=== PATIENT | female | born 1990 | race Caucasian/White ===

== ENCOUNTER → 2016-09-24 | Outpatient (CLI) | payer BC ==
[2016-09-24 14:39] LABS: BASO % 0.2 % (0.0-1.0); EOS # 0.3 K/mm3 (0.0-0.50); EOS % 2.8 % (0.0-3.0); LARGE UNSTAINED CELL # 0.2 K/mm3 (0.0-0.4); LARGE UNSTAINED CELL % 1.9 % (0.0-4.0); LYMPH # 1.6 K/mm3 (1.5-6.5); LYMPH % 16.3 % (24.0-44.0); MEAN CORPUSCULAR HEMOGLOBIN 31.9 pg (27.0-33.0); MEAN CORPUSCULAR HGB CONC 34.6 g/dl (32.0-36.5); MEAN CORPUSCULAR VOLUME 92.2 fl (80.0-96.0); MONO # 0.5 K/mm3 (0.0-0.8); MONO % 4.5 % (0.0-5.0); NEUTROPHILS # 7.4 K/mm3 (1.8-7.7); NEUTROPHILS % 74.3 % (36.0-66.0); PLATELET COUNT, AUTOMATED 173 k/mm3 (150-450); RED CELL DISTRIBUTION WIDTH 12.4 % (11.5-14.5)
== END ==
LOC: M LAB 12:56
PROVIDERS: ATTEND Obstetrics & Gynecology
DX: Z34.02 Encounter for supervision of normal first pregnancy, second trimester (principal)

== ENCOUNTER → 2017-02-18 | Outpatient (REF) | payer OTHER | LOC: M SFHCLERA 20:40 | PROVIDERS: ATTEND Physician Assistant | DX: R35.0 Frequency of micturition (principal) ==

== ENCOUNTER → 2017-04-30 | Outpatient (CLI) | payer OTHER ==
--- NOTE | 2017-04-30 14:08 | REP ---
Chest two views HISTORY: Acute bronchitis Comparison: None There is minimal peribronchial cuffing. The heart is normal in size. The pulmonary vasculature is normal in appearance. The bony structure is intact. There is partial fusion of to lower thoracic vertebral bodies. IMPRESSION: Findings consistent with asthma or bronchitis. Signed by Mickey Amos MD 04/30/2017 01:59 P
== END ==
LOC: M ADAMS 13:22
PROVIDERS: ATTEND Physician Assistant
DX: J20.9 Acute bronchitis, unspecified (principal)

== ENCOUNTER → 2017-05-18 | Outpatient (REF) | payer OTHER | LOC: M LAB REF 11:42 | PROVIDERS: ATTEND Advanced Practice Midwife | DX: Z12.4 Encounter for screening for malignant neoplasm of cervix (principal) ==

== ENCOUNTER → 2017-10-24 | Outpatient (REF) | payer OTHER | LOC: M LAB REF 13:37 | DX: J02.9 Acute pharyngitis, unspecified (principal) ==

== ENCOUNTER → 2017-12-02 | Outpatient (CLI) | payer OTHER ==
[2017-12-02 15:18] LABS: BASO % 0.2 % (0.0-1.0); EOS # 0.3 10^3/uL (0.0-0.50); EOS % 2.8 % (0.0-3.0); HEMATOCRIT 37.1 % (36.0-47.0); HEMOGLOBIN 13.3 g/dl (12.0-16.0); IMMATURE GRANULOCYTE % 0.5 % (0-3.0); LYMPH # 2.3 10^3/uL (1.5-6.5); LYMPH % 21.9 % (24.0-44.0); MEAN CORPUSCULAR HGB CONC 35.8 g/dl (32.0-36.5); MEAN CORPUSCULAR VOLUME 86.5 fl (80.0-96.0); MONO # 0.8 10^3/uL (0.0-0.8); MONO % 7.6 % (0.0-5.0); NEUTROPHILS # 6.9 10^3/uL (1.8-7.7); PLATELET COUNT, AUTOMATED 240 10^3/uL (150-450); RED BLOOD COUNT 4.29 10^6/uL (4.00-5.40); RED CELL DISTRIBUTION WIDTH 12.2 % (11.5-14.5); WHITE BLOOD COUNT 10.3 10^3/uL (4.0-10.0)
[2017-12-02 15:31] LABS: TOTAL PROTEIN,RANDOM URINE 8.1 MG/DL (0.0-12.0)
[2017-12-02 15:34] LABS: ALT/SGPT 16 U/L (12-78); AST/SGOT 8 U/L (7-37); BILIRUBIN,TOTAL 0.2 MG/DL (0.2-1.0); CREATININE FOR GFR 0.53 MG/DL (0.55-1.30); GLOMERULAR FILTRATION RATE > 60.0 (>60); LDH LACTATE DEHYDROGENASE 137 U/L (84-246); URIC ACID 3.5 MG/DL (2.6-6.0)
[2017-12-02 16:47] LABS: CHLAMYDIA DNA AMPLIFICATION NEGATIVE (NEGATIVE); GC DNA AMPLIFICATION NEGATIVE (NEGATIVE)
[2017-12-04 11:08] LABS: RUBELLA IgG QUALITATIVE IMMUNE (IMMUNE)
[2017-12-04 11:30] LABS: HBsAg Prenatal NEGATIVE (NEGATIVE)
[2017-12-04 11:48] LABS: HIV 1&2 SCREEN CENTAUR NEGATIVE (NEGATIVE)
== END ==
LOC: M LAB 14:36
DX: Z34.81 Encounter for supervision of other normal pregnancy, first trimester (principal); Z3A.11 11 weeks gestation of pregnancy
CPT/HCPCS: 84460

== ENCOUNTER → 2017-12-14 | Outpatient (REF) | payer OTHER | LOC: M LAB REF 13:20 | DX: O09.92 Supervision of high risk pregnancy, unspecified, second trimester (principal) ==

== ENCOUNTER → 2018-01-04 | Outpatient (CLI) | payer OTHER | LOC: M RAD 09:57 | DX: O09.92 Supervision of high risk pregnancy, unspecified, second trimester (principal) | CPT/HCPCS: 76811 ==

== ENCOUNTER → 2018-01-12 | Outpatient (REF) | payer OTHER | LOC: M LAB REF 12:07 | DX: J02.9 Acute pharyngitis, unspecified (principal) ==

== ENCOUNTER → 2018-01-19 | Outpatient (CLI) | payer OTHER | LOC: M RAD 18:18 | DX: O09.92 Supervision of high risk pregnancy, unspecified, second trimester (principal); Z3A.20 20 weeks gestation of pregnancy | CPT/HCPCS: 76816 ==

== ENCOUNTER → 2018-03-05 | Outpatient (CLI) | payer OTHER ==
[2018-03-05 11:59] LABS: HEMATOCRIT 38.5 % (36.0-47.0); HEMOGLOBIN 13.6 g/dl (12.0-15.5); MEAN CORPUSCULAR HEMOGLOBIN 32.4 pg (27.0-33.0); MEAN CORPUSCULAR HGB CONC 35.3 g/dl (32.0-36.5); MEAN CORPUSCULAR VOLUME 91.7 fl (80.0-96.0); PLATELET COUNT, AUTOMATED 173 10^3/uL (150-450); RED CELL DISTRIBUTION WIDTH 13.1 % (11.5-14.5); WHITE BLOOD COUNT 13.4 10^3/uL (4.0-10.0)
[2018-03-05 12:28] LABS: GLUCOSE CHALLENGE TEST 1 HOUR 97 MG/DL (LESS THAN 140)
== END ==
LOC: M LAB 11:32
DX: Z34.82 Encounter for supervision of other normal pregnancy, second trimester (principal)
CPT/HCPCS: 82950

== ENCOUNTER → 2018-04-12 | Outpatient (CLI) | payer OTHER | LOC: M RAD 17:08 | DX: O10.112 Pre-existing hypertensive heart disease complicating pregnancy, second trimester (principal); Z3A.32 32 weeks gestation of pregnancy | CPT/HCPCS: 76816 ==

== ENCOUNTER → 2018-04-30 | Outpatient (REF) | payer OTHER | LOC: M LAB REF 17:09 | DX: Z34.83 Encounter for supervision of other normal pregnancy, third trimester (principal) ==

== ENCOUNTER → 2018-05-05 | Outpatient (CLI) | payer OTHER | LOC: M RAD 17:41 | DX: O10.113 Pre-existing hypertensive heart disease complicating pregnancy, third trimester (principal); Z3A.35 35 weeks gestation of pregnancy | CPT/HCPCS: 76816 ==

== ENCOUNTER → 2018-05-12 | Outpatient (CLI) | payer OTHER | LOC: M RAD 16:17 | DX: O99.413 Diseases of the circulatory system complicating pregnancy, third trimester (principal); Z3A.36 36 weeks gestation of pregnancy | CPT/HCPCS: 76815 ==

== ENCOUNTER 2018-05-25 05:24 | Inpatient (IN) | payer OTHER ==
[2018-05-25] MEDS: LR 1,000 ML IV ×5 (06:30→18:19)
[2018-05-25 06:33] LABS: HEMATOCRIT 41.1 % (36.0-47.0); HEMOGLOBIN 14.5 g/dl (12.0-15.5); MEAN CORPUSCULAR HEMOGLOBIN 32.1 pg (27.0-33.0); MEAN CORPUSCULAR HGB CONC 35.3 g/dl (32.0-36.5); MEAN CORPUSCULAR VOLUME 90.9 fl (80.0-96.0); PLATELET COUNT, AUTOMATED 187 10^3/uL (150-450); RED BLOOD COUNT 4.52 10^6/uL (4.00-5.40); RED CELL DISTRIBUTION WIDTH 12.9 % (11.5-14.5); WHITE BLOOD COUNT 15.1 10^3/uL (4.0-10.0)
[2018-05-25] MEDS ORDERED: OXYTOCIN INJ 10 UNITS/ML VIAL (J2590) As Ordered (07:23)
[2018-05-25] MEDS ORDERED: dexameTHASONE 4 MG/ML 1ML VIAL (J1100) As Ordered (07:23)
[2018-05-25] MEDS ORDERED: ONDANSETRON 4MG/2ML VIAL (J2405) As Ordered (07:23)
[2018-05-25] MEDS: BICITRA 30ML SOLN UDC PO (07:24)
[2018-05-25] MEDS ORDERED: fentaNYL 100 MCG/2 ML INJECTION (J3010) As Ordered (07:25)
[2018-05-25] MEDS ORDERED: MORPHINE PRES-FREE INJ 10 MG/10 ML VIAL (J2274) As Ordered (07:26)
[2018-05-25] MEDS: GENTAMICIN 120 MG in D5W 50 ML IV (07:45)
[2018-05-25] MEDS: CLINDAMYCIN 900 MG in APPROPRIATE DILUENT 1 EA IV (07:56)
[2018-05-25] MEDS ORDERED: ONDANSETRON 4MG/2ML VIAL (J2405) IV ×2 (08:13→09:45)
[2018-05-25] MEDS ORDERED: NALOXONE INJ 0.4 MG/1 ML VIAL (J2310) IV ×2 (08:13)
[2018-05-25] MEDS ORDERED: METOCLOPRAMIDE INJ 10MG/2ML VIAL (J2765) IV (08:13)
[2018-05-25] MEDS ORDERED: ePHEDrine SULFATE 25 MG/5 ML(5MG/ML) SYRINGE As Ordered ×2 (08:26)
[2018-05-25] MEDS ORDERED: PHENYLephrine HCL 500 MCG/5 ML (100MCG/ML) SYRINGE (J2370) As Ordered (08:47)
[2018-05-25] MEDS ORDERED: KETOROLAC 60 MG/2 ML VIAL (J1885) As Ordered (08:54)
[2018-05-25] MEDS ORDERED: MEPERIDINE INJ 25 MG/ML VIAL (J2175) IV (09:45)
[2018-05-25] MEDS ORDERED: LR 1,000 ML IV (09:45)
[2018-05-25] MEDS ORDERED: PROMETHAZINE 25 MG TAB PO (09:45)
[2018-05-25] MEDS ORDERED: NALBUPHINE HCL 10 MG/ML AMP (J2300) IV (09:45)
[2018-05-25] MEDS ORDERED: RHOGAM 300 MCG (1500 IU) INJ (J2790) IM (09:45)
[2018-05-25] MEDS ORDERED: HYDROMORPHONE HCL 0.5 MG/ 0.5 ML SYRINGE (J1170 PER 1) IV (09:45)
[2018-05-25] MEDS ORDERED: MEASLES,MUMPS,RUBELLA VACCINE INJ (MMR-II) (90707) SC (09:45)
[2018-05-25] MEDS ORDERED: fentaNYL 100 MCG/2 ML INJECTION (J3010) IV (09:45)
[2018-05-25] MEDS ORDERED: PERCOCET 5MG/325MG TAB As Ordered (10:04)
[2018-05-25] MEDS ORDERED: OXYTOCIN 30 UNITS IN 0.9% NaCl 500ML IV BAG (J2590) As Ordered (10:05)
[2018-05-25] MEDS: PERCOCET 5MG/325MG TAB PO ×2 (10:08→14:00)
[2018-05-25] MEDS: OXYTOCIN DRIP 30 UNITS in APPROPRIATE DILUENT 1 EA IV (10:08)
[2018-05-25 10:18] LABS: HEMATOCRIT 37.4 % (36.0-47.0); HEMOGLOBIN 13.2 g/dl (12.0-15.5); MEAN CORPUSCULAR HEMOGLOBIN 32.3 pg (27.0-33.0); MEAN CORPUSCULAR HGB CONC 35.3 g/dl (32.0-36.5); MEAN CORPUSCULAR VOLUME 91.4 fl (80.0-96.0); PLATELET COUNT, AUTOMATED 157 10^3/uL (150-450); RED BLOOD COUNT 4.09 10^6/uL (4.00-5.40); RED CELL DISTRIBUTION WIDTH 13.1 % (11.5-14.5); WHITE BLOOD COUNT 14.4 10^3/uL (4.0-10.0)
[2018-05-25 10:49] LABS: CREATININE FOR GFR 0.61 MG/DL (0.55-1.30); GLOMERULAR FILTRATION RATE > 60.0 (>60)
[2018-05-25] MEDS ORDERED: ENOXAPARIN 80 MG/0.8 ML SYRINGE (J1650) SQ (11:00)
[2018-05-25] MEDS: KETOROLAC 30 MG/ML VIAL (J1885) IV ×2 (14:48→20:54)
[2018-05-25] MEDS: NALBUPHINE HCL 10 MG/ML AMP (J2300) IV (15:36)
[2018-05-25] MEDS: ENOXAPARIN 80 MG/0.8 ML SYRINGE (J1650) SQ (15:50)
[2018-05-25] MEDS: DOCUSATE SODIUM 100 MG CAP PO (20:54)
[2018-05-26] MEDS: KETOROLAC 30 MG/ML VIAL (J1885) IV (03:01)
[2018-05-26] MEDS: ENOXAPARIN 80 MG/0.8 ML SYRINGE (J1650) SQ ×2 (04:04→16:30)
[2018-05-26 06:58] LABS: HEMATOCRIT 30.7 % (36.0-47.0); MEAN CORPUSCULAR HEMOGLOBIN 32.6 pg (27.0-33.0); MEAN CORPUSCULAR HGB CONC 35.8 g/dl (32.0-36.5); MEAN CORPUSCULAR VOLUME 91.1 fl (80.0-96.0); PLATELET COUNT, AUTOMATED 166 10^3/uL (150-450); RED BLOOD COUNT 3.37 10^6/uL (4.00-5.40)
[2018-05-26] MEDS: PRENATAL VITAMINS CHEWABLE TABLET PO (08:20)
[2018-05-26] MEDS: DOCUSATE SODIUM 100 MG CAP PO ×2 (08:20→21:07)
[2018-05-26] MEDS: IBUPROFEN 800 MG TAB PO ×2 (11:20→18:56)
[2018-05-26] MEDS: PERCOCET 5MG/325MG TAB PO ×3 (11:21→21:07)
[2018-05-27] MEDS: IBUPROFEN 800 MG TAB PO (03:01)
[2018-05-27] MEDS: ENOXAPARIN 80 MG/0.8 ML SYRINGE (J1650) SQ (04:30)
[2018-05-27] MEDS: DOCUSATE SODIUM 100 MG CAP PO (08:15)
[2018-05-27] MEDS: PRENATAL VITAMINS CHEWABLE TABLET PO (08:15)
[2018-05-27] MEDS: PERCOCET 5MG/325MG TAB PO (08:16)
== END 2018-05-27 10:00 | disposition home or self-care (01) | DRG 540 ==
LOC: M LDI 05:24 → M OBS 10:52
PROVIDERS: Obstetrics & Gynecology
PROC: 10D00Z1 Extraction of Products of Conception, Low, Open Approach (ICD-10-PCS; principal; 2018-05-25 07:30)
PROC: 0UB70ZZ Excision of Bilateral Fallopian Tubes, Open Approach (ICD-10-PCS; 2018-05-25 07:30)
DX: O34.211 Maternal care for low transverse scar from previous cesarean delivery (principal); O10.02 Pre-existing essential hypertension complicating childbirth; Z30.2 Encounter for sterilization; Z3A.38 38 weeks gestation of pregnancy; Z37.0 Single live birth

== ENCOUNTER → 2018-08-20 | Outpatient (REF) | payer OTHER | LOC: M LAB REF 19:01 | DX: J02.9 Acute pharyngitis, unspecified (principal) | CPT/HCPCS: 87081 ==

== ENCOUNTER → 2018-12-01 | Outpatient (CLI) | payer OTHER ==
[~2018-12-01] MED LIST: COLA100C5 PO; HEPA10009 IJ; LOVE1INJ SC; PERCOCET PO; PRENTAB55 PO
--- NOTE | 2018-12-01 17:36 | REP ---
Clinical: Acute bronchitis . Comparison: 04/30/2017 . Technique: PA and lateral. Findings: The mediastinum and cardiac silhouette are normal. The lung german are clear and without acute consolidation, effusion, or pneumothorax. The skeletal structures are intact and normal. Impression: 1. No acute cardiopulmonary process. Electronically Signed by Randall Handley MD 12/01/2018 05:28 P
== END ==
LOC: M ADAMS 11:00
PROVIDERS: ATTEND Physician Assistant Medical
DX: J20.9 Acute bronchitis, unspecified (principal)

== ENCOUNTER → 2018-12-01 | Outpatient (REF) | payer OTHER ==
[2018-12-01 12:41] LABS: BASO # 0.1 10^3/uL (0.0-0.2); BASO % 0.5 % (0.0-1.0); EOS # 0.3 10^3/uL (0.0-0.50); EOS % 3.2 % (0.0-3.0); HEMATOCRIT 42.3 % (36.0-47.0); HEMOGLOBIN 14.7 g/dl (12.0-15.5); LYMPH % 21.4 % (24.0-44.0); MEAN CORPUSCULAR HEMOGLOBIN 31.2 pg (27.0-33.0); MEAN CORPUSCULAR HGB CONC 34.8 g/dl (32.0-36.5); MEAN CORPUSCULAR VOLUME 89.8 fl (80.0-96.0); MONO # 0.7 10^3/uL (0.0-0.8); NEUTROPHILS # 6.3 10^3/uL (1.8-7.7); NEUTROPHILS % 67.6 % (36.0-66.0); PLATELET COUNT, AUTOMATED 296 10^3/uL (150-450); RED BLOOD COUNT 4.71 10^6/uL (4.00-5.40); WHITE BLOOD COUNT 9.4 10^3/uL (4.0-10.0)
== END ==
LOC: M LABDRWAD 12:04 → M LABDRAW1 12:04
PROVIDERS: ATTEND Physician Assistant Medical
DX: J20.9 Acute bronchitis, unspecified (principal)

== ENCOUNTER → 2019-04-21 | Outpatient (REF) | payer OTHER | LOC: M LAB REF 17:52 | PROVIDERS: ATTEND Obstetrics & Gynecology | DX: Z12.4 Encounter for screening for malignant neoplasm of cervix (principal) ==

== ENCOUNTER → 2019-08-08 | Outpatient (REF) | payer OTHER ==
[2019-08-08 17:17] LABS: BASO % 0.4 % (0.0-1.0); EOS # 0.1 10^3/uL (0.0-0.5); EOS % 2.5 % (0.0-3.0); HEMATOCRIT 41.3 % (36.0-47.0); HEMOGLOBIN 13.6 g/dl (12.0-15.5); LYMPH # 1.4 10^3/uL (1.5-5.0); LYMPH % 27.3 % (24.0-44.0); MEAN CORPUSCULAR HEMOGLOBIN 29.6 pg (27.0-33.0); MEAN CORPUSCULAR HGB CONC 32.9 g/dl (32.0-36.5); MEAN CORPUSCULAR VOLUME 89.8 fl (80.0-96.0); MONO # 0.7 10^3/uL (0.0-0.8); MONO % 13.8 % (0.0-5.0); NEUTROPHILS % 55.8 % (36.0-66.0); PLATELET COUNT, AUTOMATED 219 10^3/uL (150-450); WHITE BLOOD COUNT 5.3 10^3/uL (4.0-10.0)
[2019-08-08 18:05] LABS: ALBUMIN 3.9 GM/DL (3.2-5.2); ALT/SGPT 20 U/L (12-78); BILIRUBIN,TOTAL 0.5 MG/DL (0.2-1.0); BLOOD UREA NITROGEN 9 MG/DL (7-18); CALCIUM LEVEL 9.2 MG/DL (8.5-10.1); CARBON DIOXIDE LEVEL 26 MEQ/L (21-32); CHLORIDE LEVEL 104 MEQ/L (98-107); CREATININE FOR GFR 0.75 MG/DL (0.55-1.30); GLOMERULAR FILTRATION RATE > 60.0 (>60); GLUCOSE, FASTING 91 MG/DL (70-100); POTASSIUM SERUM 3.7 MEQ/L (3.5-5.1); SODIUM LEVEL 138 MEQ/L (136-145); TOTAL PROTEIN 7.7 GM/DL (6.4-8.2)
== END ==
LOC: M SFHCADAM 11:50
PROVIDERS: ATTEND Family Medicine
DX: J10.1 Influenza due to other identified influenza virus with other respiratory manifestations (principal)

== ENCOUNTER → 2019-08-09 | Outpatient (REF) | payer OTHER ==
[2019-08-09 20:09] LABS: BASO % 0.3 % (0.0-1.0); EOS # 0.1 10^3/uL (0.0-0.5); EOS % 1.5 % (0.0-3.0); HEMATOCRIT 42.3 % (36.0-47.0); HEMOGLOBIN 14.1 g/dl (12.0-15.5); LYMPH # 1.9 10^3/uL (1.5-5.0); LYMPH % 27.1 % (24.0-44.0); MEAN CORPUSCULAR HEMOGLOBIN 29.6 pg (27.0-33.0); MEAN CORPUSCULAR HGB CONC 33.3 g/dl (32.0-36.5); MEAN CORPUSCULAR VOLUME 88.7 fl (80.0-96.0); MONO # 0.5 10^3/uL (0.0-0.8); NEUTROPHILS # 4.6 10^3/uL (1.5-8.5); NEUTROPHILS % 63.8 % (36.0-66.0); PLATELET COUNT, AUTOMATED 262 10^3/uL (150-450); RED BLOOD COUNT 4.77 10^6/uL (4.00-5.40); WHITE BLOOD COUNT 7.2 10^3/uL (4.0-10.0)
[2019-08-09 20:25] LABS: C REACTIVE PROTEIN QUANTITATIV 1.42 MG/DL (0.00-0.30)
[2019-08-09 20:36] LABS: MONO SCRN NEGATIVE (NEGATIVE)
[2019-08-09 20:56] LABS: ERYTHROCYTE SEDIMENTATION RATE 21 mm/hr (0-20)
== END ==
LOC: M SFHCADAM 15:12
PROVIDERS: ATTEND Physician Assistant Medical
DX: J02.9 Acute pharyngitis, unspecified (principal); K12.0 Recurrent oral aphthae

== ENCOUNTER → 2019-09-13 | Outpatient (CLI) | payer OTHER ==
--- NOTE | 2019-09-13 10:10 | REP ---
Clinical: Trauma. Technique: AP, lateral, bilateral oblique views left wrist . Findings: The carpal bones, surrounding osseous structures, soft tissues, and joint spaces are normal. There is no evidence for acute fracture or dislocation. No subcutaneous emphysema or radiodense foreign body. Impression: Normal wrist series. No acute fracture or dislocation Electronically Signed by Randall Handley MD 09/13/2019 10:02 A
== END ==
LOC: M ADAMS 09:35
PROVIDERS: ATTEND Physician Assistant Medical
DX: M25.532 Pain in left wrist (principal)

== ENCOUNTER → 2019-10-04 | Outpatient (CLI) | payer OTHER ==
--- NOTE | 2019-10-05 04:09 | REP ---
Clinical: Pain. Technique: AP, lateral, bilateral oblique views of the left third digit. Findings: No obvious acute fracture or dislocation. Joint spaces are intact and relatively normal. Surrounding soft tissues are unremarkable. Impression: No obvious acute fracture. Electronically Signed by Randall Handley MD 10/05/2019 04:01 A
== END ==
LOC: M ADAMS 11:22
PROVIDERS: ATTEND Nurse Practitioner Family
DX: M79.675 Pain in left toe(s) (principal)

== ENCOUNTER 2019-10-14 19:41 | Emergency (ER) | payer OTHER ==
[~2019-10-14] VITALS: Ht 162.6 cm; Wt 81.1 kg
[2019-10-14] MEDS ORDERED: ALLE180T33 PO (20:00)
[2019-10-14] MEDS ORDERED: CLOP75TA2 PO (20:00)
[2019-10-14] MEDS ORDERED: PRED10TA2 PO (20:00)
[2019-10-14] MEDS ORDERED: CLIN300C5 PO (20:00)
[2019-10-14] MEDS ORDERED: ALLE24TA7 PO (20:00)
[2019-10-14] MEDS ORDERED: MONT10TA2 PO (20:00)
[2019-10-14 20:04] LABS: BASO % 0.3 % (0.0-1.0); EOS # 0.4 10^3/uL (0.0-0.5); EOS % 3.7 % (0.0-3.0); HEMATOCRIT 43.5 % (36.0-47.0); HEMOGLOBIN 14.8 g/dl (12.0-15.5); LYMPH # 1.8 10^3/uL (1.5-5.0); MEAN CORPUSCULAR HEMOGLOBIN 29.6 pg (27.0-33.0); MONO # 0.9 10^3/uL (0.0-0.8); MONO % 7.7 % (0.0-5.0); NEUTROPHILS # 8.6 10^3/uL (1.5-8.5); NEUTROPHILS % 72.6 % (36.0-66.0); PLATELET COUNT, AUTOMATED 362 10^3/uL (150-450); WHITE BLOOD COUNT 11.8 10^3/uL (4.0-10.0)
--- NOTE | 2019-10-14 20:09 | REPVR ---
PROCEDURE INFORMATION: Exam: CT Head Without Contrast Exam date and time: 10/14/2019 7:48 PM Age: 29 years old Clinical indication: Visual disturbance; Prior surgery; Surgery date: 6+ months; Surgery type: Coil; Additional info: Visual changes, history of CVA TECHNIQUE: Imaging protocol: Computed tomography of the head without contrast. Radiation optimization: All CT scans at this facility use at least one of these dose optimization techniques: automated exposure control; mA and/or kV adjustment per patient size (includes targeted exams where dose is matched to clinical indication); or iterative reconstruction. COMPARISON: No relevant prior studies available. FINDINGS: Limitations: This examination is slightly suboptimal secondary to artifact from metallic coil adjacent to the suprasellar cistern on the right. Brain: Right suprasellar cistern region metallic coils. Otherwise unremarkable. No hemorrhage. No significant white matter disease. No edema. Ventricles: Unremarkable. No ventriculomegaly. Bones/joints: Unremarkable. No acute fracture. Sinuses: Mild mucosal thickening of the ethmoid sinuses. No paranasal sinus air-fluid level. Mastoid air cells: Visualized mastoid air cells are well aerated. Soft tissues: Unremarkable. Other findings: No CT scan evidence of acute stroke is identified. IMPRESSION: 1. Slightly suboptimal examination secondary to metal artifact. 2. No acute intracranial abnormality. Note should be made that early acute cerebrovascular accident may not be visible on initial unenhanced head CT. Consider MRI examination as clinically indicated. Electronically signed by: Trent Kessler On 10/14/2019 20:09:06 PM
[2019-10-14 20:14] LABS: PROTHROMBIN TIME 12.9 SECONDS (11.8-14.0)
[2019-10-14 20:15] LABS: PARTIAL THROMBOPLASTIN TIME 31.4 SECONDS (25.0-38.4)
[2019-10-14] MEDS ORDERED: ISOVUE-370 76% 100ML VIAL (Q9967) As Ordered ONE (20:32)
[2019-10-14 20:36] LABS: CK-MB VALUE MASS < 1.0 NG/ML (<3.6); CPK CREATINE PHOSPHOKINASE 66 U/L (26-192); MB/CK RELATIVE INDEX 1.52 (< OR =4); TROPONIN I < 0.02 NG/ML (< 0.10)
--- NOTE | 2019-10-14 20:39 | ECGEPIP ---
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
--- NOTE | 2019-10-14 21:41 | REPVR ---
PROCEDURE INFORMATION: Exam: CT Angiography Head With Contrast Exam date and time: 10/14/2019 8:54 PM Age: 29 years old Clinical indication: Visual disturbance; Additional info: Visual disturbance, h/o recurrent CVA TECHNIQUE: Imaging protocol: Computed tomography angiography of the head with intravenous contrast. 3D rendering: MIP and/or 3D reconstructed images were created by the technologist. Radiation optimization: All CT scans at this facility use at least one of these dose optimization techniques: automated exposure control; mA and/or kV adjustment per patient size (includes targeted exams where dose is matched to clinical indication); or iterative reconstruction. 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 Right internal carotid artery: There has been previous stent assisted coiling at the right carotid terminus. Right internal carotid artery is occluded. Right anterior cerebral artery: Unremarkable. No occlusion or significant stenosis. No aneurysm. Right middle cerebral artery: There are small collateral vessels reconstituting the right M1 segment. Right M1 segment demonstrates diminished flow in caliber. Right MCA M1 segment is poorly evaluated secondary to artifact. Right posterior cerebral artery: Proximal right ELECTRICIAN STATION ASSISTANT is poorly evaluated. Visualized portions are without gross stenosis. Right vertebral artery: Unremarkable. No occlusion or significant stenosis. No aneurysm. Left internal carotid artery: Unremarkable. Intracranial segment is patent with no significant stenosis. No aneurysm. Left anterior cerebral artery: Unremarkable. No occlusion or significant stenosis. No aneurysm. Left middle cerebral artery: Unremarkable. No occlusion or significant stenosis. No aneurysm. Left posterior cerebral artery: Unremarkable. No occlusion or significant stenosis. No aneurysm. Left vertebral artery: Unremarkable. No occlusion or significant stenosis. No aneurysm. Basilar artery: Unremarkable. No occlusion or significant stenosis. No aneurysm. IMPRESSION: 1. 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 There is extensive associated artifact which limits evaluation. 2. Occlusion of the right ICA with small collaterals reconstituting the right MCA. Right M1 segment remains small in caliber throughout with diminished flow. This is poorly evaluated secondary to artifact. 3. Right ELECTRICIAN STATION ASSISTANT is poorly evaluated secondary to artifact. Electronically signed by: Nemesio Del Rio On 10/14/2019 21:41:39 PM
--- NOTE | 2019-10-14 21:42 | REPVR ---
PROCEDURE INFORMATION: Exam: CT Angiography Neck With Contrast Exam date and time: 10/14/2019 8:54 PM Age: 29 years old Clinical indication: Visual disturbance; Additional info: Visual disturbance, h/o recurrent CVA TECHNIQUE: Imaging protocol: Computed tomography angiography of the neck with intravenous contrast. 3D rendering: MIP and/or 3D reconstructed images were created by the technologist. Radiation optimization: All CT scans at this facility use at least one of these dose optimization techniques: automated exposure control; mA and/or kV adjustment per patient size (includes targeted exams where dose is matched to clinical indication); or iterative reconstruction. Contrast material: ISOVUE 370; Contrast volume: 100 ml; Contrast route: IV; COMPARISON: No relevant prior studies available. FINDINGS: VASCULATURE: Right common carotid artery: There is a stent involving the distal right common carotid artery extending to the proximal right ICA. Right internal carotid artery: Right ICA is occluded. Right external carotid artery: Unremarkable. No occlusion or stenosis of the origin. Right vertebral artery: Unremarkable. No stenosis. No dissection or occlusion. Left common carotid artery: Unremarkable. No stenosis. No dissection or occlusion. Left internal carotid artery: Unremarkable extracranial segment. No stenosis. No dissection or occlusion. Left external carotid artery: Unremarkable. No occlusion or stenosis of the origin. Left vertebral artery: Unremarkable. No stenosis. No dissection or occlusion. NECK: Bones/joints: No acute fracture. Soft tissues: Normal. No significant soft tissue swelling. IMPRESSION: 1. Occlusion of the right ICA. Intracranial reconstitution indicates that this is a chronic finding. 2. Stent extends from the distal right common carotid artery to the internal carotid artery. COMMENT: Reference per NASCET criteria for degree of stenosis: Mild: less than 50% stenosis. Moderate: 50-69% stenosis. Severe: 70-94% stenosis. Near occlusion: 95-99% stenosis. Electronically signed by: Nemesio Del Rio On 10/14/2019 21:42:23 PM
[2019-10-14] MEDS ORDERED: ASPIRIN 81 MG CHEW TABLET PO ONE (22:30)
[2019-10-14 23:11] VITALS: BP 135/82
--- NOTE | 2019-10-15 08:42 | REP ---
AP PORTABLE CHEST: 10/14/2019. Comparison: 12/01/2018. Clinical history: CVA. Findings: Lungs well inflated and clear. The heart, mediastinal, hilar contours are normal. Aorta and airway intact. Bony thorax is without focal lesion. No free air under the diaphragm. Impression: 1. No acute cardiopulmonary disease. Electronically Signed by Zev Sarah MD 10/15/2019 08:33 A
== END 2019-10-14 23:14 | disposition short-term general hospital (02) ==
LOC: M ED 19:41
DX: G45.9 Transient cerebral ischemic attack, unspecified (principal); Z95.828 Presence of other vascular implants and grafts; Z88.1 Allergy status to other antibiotic agents; Z79.02 Long term (current) use of antithrombotics/antiplatelets; Z79.899 Other long term (current) drug therapy
CPT/HCPCS: 36415; 70450; 70496; 70498; 71045; 80047; 82550; 82553; 84484; 84702; 85025; 85610; 85730; 86850; 86900; 86901; 93005; 93041; 94760; 99285; Q9967

== ENCOUNTER → 2019-10-17 | Outpatient (CLI) | payer OTHER ==
[~2019-10-17] MED LIST changes: +ALLE180T33 PO; +ALLE24TA7 PO; +CLIN300C5 PO; +CLOP75TA2 PO; +MONT10TA2 PO; +PRED10TA2 PO
--- NOTE | 2019-10-17 16:34 | REPVR ---
PROCEDURE INFORMATION: Exam: CT Maxillofacial Without Contrast, Sinus Exam date and time: 10/17/2019 3:47 PM Age: 29 years old Clinical indication: Condition or disease; Other: Deviated septum; Other: Chronic pansinusitis; Additional info: J34.2 deviated nasal septum j32.4 chronic pansiusi TECHNIQUE: Imaging protocol: CT Maxillofacial without contrast. Focus on the sinuses. Radiation optimization: All CT scans at this facility use at least one of these dose optimization techniques: automated exposure control; mA and/or kV adjustment per patient size (includes targeted exams where dose is matched to clinical indication); or iterative reconstruction. COMPARISON: No relevant prior studies available. FINDINGS: Frontal sinuses: There is mild frontal sinus mucosal thickening. The frontoethmoidal recesses are patent. No air-fluid levels. Ethmoid air cells: There is mild ethmoid mucosal thickening. No air-fluid levels. Sphenoid sinuses: There is mild sphenoid sinus mucosal thickening. No air-fluid levels. Maxillary sinuses: There is mild maxillary sinus mucosal thickening. The left maxillary sinus infundibulum is obscured by focal polypoid mucosal thickening. No air-fluid levels. Orbits: Orbits are normal. Globes are unremarkable. Nasal cavity/Septum: There is rightward nasal septal deviation with a spur. There is hypertrophy of the nasal turbinates. Vasculature: Right internal carotid artery stent graft material is noted. There is right suprasellar endovascular coil material. Soft tissues: Unremarkable. Bones/joints: Unremarkable. IMPRESSION: Sinus mucosal disease as described. No evidence of acute sinusitis. Electronically signed by: Josefina Prieto On 10/17/2019 16:33:27 PM
== END ==
LOC: M RAD 15:44
PROVIDERS: ATTEND Specialist
DX: J34.2 Deviated nasal septum (principal); J32.4 Chronic pansinusitis

== ENCOUNTER 2019-11-14 10:22 | Day surgery (SDC) | payer OTHER ==
[~2019-11-14] VITALS: Ht 162.6 cm; Wt 77.5 kg
[~2019-11-14 10:22] MED LIST changes: +LIDOCAINE 1% MDV 20ML VIAL SQ PRN; +LR 1,000 ML IV SCH; +MAGN400C PO; -MONT10TA2 PO; +MONT10TA4 PO
[2019-11-14 10:52] LABS: HEMATOCRIT 38.6 % (36.0-47.0); HEMOGLOBIN 12.7 g/dl (12.0-15.5); MEAN CORPUSCULAR HEMOGLOBIN 27.9 pg (27.0-33.0); MEAN CORPUSCULAR HGB CONC 32.9 g/dl (32.0-36.5); MEAN CORPUSCULAR VOLUME 84.8 fl (80.0-96.0); PLATELET COUNT, AUTOMATED 287 10^3/uL (150-450); RED BLOOD COUNT 4.55 10^6/uL (4.00-5.40); WHITE BLOOD COUNT 4.1 10^3/uL (4.0-10.0)
[2019-11-14 11:23] LABS: ALBUMIN 4.3 GM/DL (3.2-5.2); ALT/SGPT 22 U/L (12-78); BILIRUBIN,TOTAL 0.6 MG/DL (0.2-1.0); BLOOD UREA NITROGEN 12 MG/DL (7-18); CARBON DIOXIDE LEVEL 26 MEQ/L (21-32); CHLORIDE LEVEL 108 MEQ/L (98-107); GLOMERULAR FILTRATION RATE > 60.0 (>60); GLUCOSE, FASTING 105 MG/DL (70-100); POTASSIUM SERUM 3.8 MEQ/L (3.5-5.1); SODIUM LEVEL 139 MEQ/L (136-145); TOTAL PROTEIN 7.5 GM/DL (6.4-8.2)
[2019-11-14] MEDS ORDERED: SCOPOLAMINE 1MG TRANSDERMAL PATCH As Ordered ONE (11:40)
[2019-11-14] MEDS ORDERED: SCOPOLAMINE 1MG TRANSDERMAL PATCH TOP ONE (11:45)
[2019-11-14] MEDS: METHYLENE BLUE 0.5% (5MG/ML) 10 ML AMP (PROVAYBLUE)(Q9968 PER 1MG) As Ordered ONE ×2 (13:08→14:38)
[2019-11-14] MEDS: OXYMETAZOLINE NASAL SPRAY (AFRIN) As Ordered ONE ×2 (13:08→14:38)
[2019-11-14] MEDS: LIDOCAINE W/EPINEPHRINE 1% 20ML VIAL As Ordered ONE ×2 (13:10→14:38)
[2019-11-14] MEDS ORDERED: EPINEPHrine INJ 1 MG/ML 1ML VIAL As Ordered ONE ×2 (13:14→15:27)
[2019-11-14] MEDS ORDERED: propofoL 200 MG/20 ML VIAL As Ordered ONE (13:20)
[2019-11-14] MEDS ORDERED: LIDOCAINE 2% INJ 100 MG/5 ML SDV (FOR ANES.) As Ordered ONE (13:20)
[2019-11-14] MEDS ORDERED: fentaNYL 250 MCG/5 ML INJECTION (J3010) As Ordered ONE (13:20)
[2019-11-14] MEDS ORDERED: MIDAZOLAM INJ 2 MG/2 ML VIAL (J2250) As Ordered ONE (13:20)
[2019-11-14] MEDS ORDERED: ROCURONIUM BROMIDE 50 MG/5 ML VIAL As Ordered ONE (13:20)
[2019-11-14] MEDS ORDERED: ONDANSETRON 4MG/2ML VIAL (J2405) As Ordered ONE (14:34)
[2019-11-14] MEDS ORDERED: KETOROLAC 60 MG/2 ML VIAL (J1885) As Ordered ONE (14:34)
[2019-11-14] MEDS ORDERED: dexameTHASONE 4 MG/ML 1ML VIAL (J1100) As Ordered ONE ×2 (14:34→14:35)
[2019-11-14] MEDS ORDERED: ACETAMINOPHEN 1000MG 100ML IV BTL (OFIRMEV) (J0131 PER 10MG) As Ordered ONE (14:55)
[2019-11-14] MEDS ORDERED: SUGAMMADEX SODIUM 500 MG/5 ML VIAL (BRIDION) As Ordered ONE (15:33)
[2019-11-14] MEDS ORDERED: KETOROLAC 30 MG/ML VIAL (J1885) IV PRN (16:05)
[2019-11-14] MEDS ORDERED: oxyCODONE 5MG TAB As Ordered ONE (17:17)
[2019-11-14] MEDS ORDERED: LR 1,000 ML IV SCH (17:30)
[2019-11-14] MEDS ORDERED: fentaNYL 100 MCG/2 ML INJECTION (J3010) IV PRN (17:30)
[2019-11-14] MEDS ORDERED: oxyCODONE 5MG TAB PO PRN (17:30)
[2019-11-14] MEDS ORDERED: PERCOCET 5MG/325MG TAB PO PRN (17:30)
[2019-11-14] MEDS ORDERED: ONDANSETRON 4MG/2ML VIAL (J2405) IV PRN (17:30)
[2019-11-14 18:45] VITALS: BP 140/93
--- NOTE | 2019-11-25 15:23 | RO ---
DATE OF OPERATION: 11/14/2019 PREOPERATIVE DIAGNOSES: Deviated septum and chronic sinusitis. POSTOPERATIVE DIAGNOSES: Deviated septum and chronic sinusitis. PROCEDURE: Septoplasty, bilateral endoscopic ethmoidectomy, maxillary antrostomy. SURGEON: John Chiu MD TILE GRINDER: ANESTHESIA: INDICATIONS: This is a 29 year old with a history of nasal obstruction, congestion, recurring acute sinusitis. CT scan demonstrated opacification of the osteomeatal complexes bilaterally. DESCRIPTION OF PROCEDURE: Satisfactory general endotracheal anesthesia administered. Pharyngeal pack placed. The nose prepared for surgery by placing cotton-soaked pledges with Afrin solution into the nasal cavity bilaterally. 1% Xylocaine with 1:100,000 epinephrine was used to inject the nasal septum. A Narayan incision was made on the left side of the nose. A mucoperichondrial flap and envelope was created on the left side of the nasal septum and carried down to the junction of the bony and cartilaginous septum. This was then with an elevator, and an envelope was then created on the right side of the septum. A Eric scissors was used to make a cut high in the perpendicular plate in the midportion of the vomer, and a central segment of the bony septum was resected. Next, with the round knife on the Ashok elevator, a strip of cartilage was resected from the floor of the nose, mobilizing the quadrilateral cartilage and creating a swinging door. Then, a central segment of cartilaginous septum was resected, preserving a 1 cm dorsal and caudal strut. Double-action rongeur was used to take down deflected portions of the perpendicular plate, as well. Finally, the maxillary crest spur was taken down after elevating mucoperiosteum off both sides of it with a chisel. A segment of the resected cartilage was morselized and placed back into the septal envelope. The incision was closed using an interrupted #5-0 chromic suture. Then, a #4-0 plain suture was placed in a [id number] fashion through the two leaves of mucoperichondrium to appose them. Completing the septal surgery, endoscopic surgery was first started on the left side with the 0-degree telescope and the microdebrider as the primary instrument. She had been on Plavix 3 days before surgery, so she was probably a little more vascular and a little bit more bleeding than would be encountered normally, but it was not excessive. First, the uncinate process was taken down with the microdebrider. The middle turbinate was pneumatized one segment. This was then opened by removing the lateral lamella of the middle turbinate. The ethmoidal bulla was somewhat small and attenuate. This was resected and opened, then the ground lamella was perforated and entered. Then, working anteriorly, lamella of bone were used to enlarge the middle meatus. The natural maxillary sinus ostia was quite lateral, and it was difficult to see with the 0-degree telescope, but a 30-degree telescope was then brought into place to identify it. Then, using the combination of the microdebrider and the side-biting forceps, this was enlarged anteriorly and superiorly. Adrenaline pledgets were required during this section for hemostasis. An identical procedure was then performed on the right side, again, removing part of the lateral lamella of middle turbinate and enlarging the access to the middle meatus that way. Again, her natural maxillary sinus ostia infundibulum site was quite lateral and visualization was more challenging with 0-degree telescope requiring a 30-degree scope. Adrenaline pledgets were placed on this side once this was done. On completion of her surgery, NasoPore packing was placed into the middle meatus on each side for hemostasis, and then Sinu-Foam was then used to inject on top of this and around the lateral nasal wall on both sides. The pharyngeal pack was removed. Throat suctioned. Patient awakened and sent to recovery in satisfactory condition. She will be discharged home with doxycycline 100 mg twice a day and Percocet for pain. She will be seen in the office in 3 days.
== END 2019-11-14 19:01 | disposition home or self-care (01) ==
LOC: M SDC 10:22
PROVIDERS: ATTEND Specialist
DX: J32.9 Chronic sinusitis, unspecified (principal); J34.2 Deviated nasal septum; G43.909 Migraine, unspecified, not intractable, without status migrainosus; Z86.73 Personal history of transient ischemic attack (TIA), and cerebral infarction without residual deficits; I65.29 Occlusion and stenosis of unspecified carotid artery; Z98.62 Peripheral vascular angioplasty status; Z88.0 Allergy status to penicillin; Z88.1 Allergy status to other antibiotic agents; Z79.899 Other long term (current) drug therapy; Z79.02 Long term (current) use of antithrombotics/antiplatelets
CPT/HCPCS: 30520; 31254; 31256; 36415; 80053; 81025; 85027; 88300; J0131; J1100; J1885; J2250; J2405; J3010; Q9968

== ENCOUNTER → 2020-06-22 | Outpatient (REF) | payer OTHER ==
[~2020-06-22] MED LIST changes: -LIDOCAINE 1% MDV 20ML VIAL SQ PRN; -LR 1,000 ML IV SCH
[2020-06-22 17:11] LABS: HEMATOCRIT 38.1 % (36.0-47.0); HEMOGLOBIN 11.8 g/dl (12.0-15.5); MEAN CORPUSCULAR HEMOGLOBIN 24.3 pg (27.0-33.0); MEAN CORPUSCULAR VOLUME 78.4 fl (80.0-96.0); PLATELET COUNT, AUTOMATED 347 10^3/uL (150-450); RED BLOOD COUNT 4.86 10^6/uL (4.00-5.40); WHITE BLOOD COUNT 9.5 10^3/uL (4.0-10.0)
[2020-06-22 17:45] LABS: FREE T4 1.1 NG/DL (0.76-1.46); THYROID STIMULATING HORMONE 1.33 uIU/ML (0.358-3.740)
== END ==
LOC: M PLALAB 15:17
PROVIDERS: ATTEND Obstetrics & Gynecology
DX: N93.9 Abnormal uterine and vaginal bleeding, unspecified (principal)

== ENCOUNTER → 2020-06-26 | Outpatient (CLI) | payer OTHER ==
--- NOTE | 2020-07-02 11:06 | REP ---
PELVIC ULTRASOUND: 06/26/20 HISTORY: Abnormal uterine bleeding. Real time sonographic evaluation of the pelvis performed utilizing transabdominal technique. The bladder measures 13.3 x 10.1 x 8.4cm for a total volume of 590cc. Uterus measures 8.7 x 3.6 x 6.3cm and is diffusely somewhat heterogeneous with no focal abnormality. Endometrial thickness is 4mm with a no endometrial fluid collection. The ovaries are normal in size and echotexture, right ovary measuring 2.6 x 1.3 x 2.4cm and the left ovary 2.6 x 1.0 x 2.4cm. There is no adnexal mass or free fluid. There is no evidence of ovarian torsion with duplex Doppler evaluation. IMPRESSION: Essentially negative pelvic ultrasound as discussed in detail above. MTDD
== END ==
LOC: M WHC 15:31
PROVIDERS: ATTEND Obstetrics & Gynecology
DX: N93.9 Abnormal uterine and vaginal bleeding, unspecified (principal)

== ENCOUNTER → 2020-07-12 | Outpatient (CLI) | payer OTHER ==
--- NOTE | 2020-07-12 16:54 | REPVR ---
PROCEDURE INFORMATION: Exam: CT Maxillofacial Without Contrast, Sinus Exam date and time: 07/12/2020 4:31 PM Age: 30 years old Clinical indication: Other: Recurrent sinusitis; Prior surgery; Surgery date: 6+ months TECHNIQUE: Imaging protocol: CT Maxillofacial without contrast. Focus on the sinuses. Radiation optimization: All CT scans at this facility use at least one of these dose optimization techniques: automated exposure control; mA and/or kV adjustment per patient size (includes targeted exams where dose is matched to clinical indication); or iterative reconstruction. COMPARISON: CT Maxilofacial w/out contrast 10/17/2019 4:07 PM FINDINGS: Frontal sinuses: There is mild mucosal thickening in the frontal sinuses similar prior scan. The frontal nasal recess Ethmoid air cells: There is mild mucosal thickening in the ethmoid sinuses is slightly decreased. Sphenoid sinuses: There is mild left sphenoid sinus mucosal thickening. This is similar to prior scan. Maxillary sinuses: There is extensive mucosal thickening and secretions in the right maxillary sinus, markedly more severe than on the prior scan. There is mild mucosal thickening in the left maxillary sinus, decreased from prior scan. Nasal cavity/Septum: There are postoperative findings with resection of the uncinate processes and the right middle turbinate peer this has been performed since the previous scan. Orbital cavity: Orbits are normal. Globes are unremarkable. Bones/joints: Unremarkable. Soft tissues: Unremarkable Vasculature: There is a right internal carotid artery flow diverting stent. There are embolization coils in the right para clinoid region. This was present on the prior scan. IMPRESSION: There has been interval sinus surgery since the previous scan. There is right maxillary sinusitis, more severe than on the prior scan. Sinusitis is otherwise stable or decreased Electronically signed by: Lenard Abarca On 07/12/2020 16:54:11 PM
== END ==
LOC: M RAD 16:19
PROVIDERS: ATTEND Specialist
DX: J01.81 Other acute recurrent sinusitis (principal); J32.0 Chronic maxillary sinusitis

== ENCOUNTER → 2020-08-19 | Outpatient (CLI) | payer OTHER ==
[~2020-08-19] MED LIST changes: +FLON27.5; +THERTAB19 PO
== END ==
LOC: M LABSMTC 08:16
PROVIDERS: ATTEND Anesthesiology
DX: Z01.812 Encounter for preprocedural laboratory examination (principal); Z20.828 Contact with and (suspected) exposure to other viral communicable diseases

== ENCOUNTER → 2020-08-22 | Outpatient (CLI) | payer OTHER ==
[~2020-08-22] MED LIST changes: -CLIN300C5 PO; +CLIN300C6 PO; -MONT10TA4 PO; +MONT5TAB2 PO; +PERC5TAB12 PO
--- NOTE | 2020-08-22 16:16 | ECGEPIP ---
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
== END ==
LOC: M EKG 15:52
PROVIDERS: ATTEND Anesthesiology
DX: I73.9 Peripheral vascular disease, unspecified (principal)

== ENCOUNTER 2020-08-24 06:20 | Day surgery (SDC) | payer OTHER ==
[~2020-08-24] VITALS: Ht 162.6 cm; Wt 75.3 kg
[~2020-08-24 06:20] MED LIST changes: +CLINDAMYCIN 900 MG in IV 1 EA IV ONE; +GENTAMICIN 120 MG in D5W 50 ML IV ONE; +LIDOCAINE 1% MDV 20ML VIAL SQ PRN; +LR 1,000 ML IV ONE; -PERC5TAB12 PO
[2020-08-24 07:09] LABS: HEMATOCRIT 38.9 % (36.0-47.0); HEMOGLOBIN 11.8 g/dl (12.0-15.5); MEAN CORPUSCULAR HEMOGLOBIN 24.3 pg (27.0-33.0); MEAN CORPUSCULAR HGB CONC 30.3 g/dl (32.0-36.5); PLATELET COUNT, AUTOMATED 345 10^3/uL (150-450); RED BLOOD COUNT 4.86 10^6/uL (4.00-5.40); WHITE BLOOD COUNT 4.9 10^3/uL (4.0-10.0)
[2020-08-24] MEDS ORDERED: GENTAMICIN SULF 80MG/2ML VIAL As Ordered ONE (07:13)
[2020-08-24] MEDS ORDERED: BUPIVACAINE HCL 0.25% 30ML VIAL As Ordered ONE (07:13)
[2020-08-24] MEDS ORDERED: METHYLENE BLUE 0.5% (5MG/ML) 10 ML AMP (PROVAYBLUE) As Ordered ONE (07:13)
[2020-08-24 07:25] LABS: HCG, SERUM QUALITATIVE NEGATIVE (NEGATIVE)
[2020-08-24] MEDS ORDERED: SCOPOLAMINE 1MG TRANSDERMAL PATCH TOP ONE (07:30)
[2020-08-24] MEDS ORDERED: MIDAZOLAM INJ 2MG/2ML VIAL (J2250 PER 1MG) As Ordered ONE (08:13)
[2020-08-24] MEDS ORDERED: ROCURONIUM BROMIDE 50 MG/5 ML VIAL As Ordered ONE ×2 (08:13→08:15)
[2020-08-24] MEDS ORDERED: SUGAMMADEX SODIUM 500 MG/5 ML VIAL (BRIDION) As Ordered ONE (08:13)
[2020-08-24] MEDS ORDERED: propofoL 200 MG/20 ML VIAL As Ordered ONE ×2 (08:13→08:16)
[2020-08-24] MEDS ORDERED: HYDROmorphone HCL 2 MG/ML 1ML VIAL (J1170) As Ordered ONE (08:13)
[2020-08-24] MEDS ORDERED: ONDANSETRON 4MG/2ML VIAL As Ordered ONE (08:13)
[2020-08-24] MEDS ORDERED: diphenhydrAMINE 50MG/ML VIAL (J1200) As Ordered ONE (08:13)
[2020-08-24] MEDS ORDERED: LIDOCAINE 2% 100MG/5ML SDV (FOR ANES.) As Ordered ONE (08:13)
[2020-08-24] MEDS ORDERED: METOCLOPRAMIDE INJ 10MG/2ML VIAL (J2765 PER 1) As Ordered ONE (08:13)
[2020-08-24] MEDS ORDERED: dexameTHASONE 4 MG/ML 1ML VIAL (J1100 PER 1MG) As Ordered ONE (08:13)
[2020-08-24] MEDS ORDERED: fentaNYL 250 MCG/5 ML INJECTION (J3010) As Ordered ONE (08:13)
[2020-08-24] MEDS ORDERED: SEVOFLURANE INHAL SOLN 250 ML BTL As Ordered ONE (09:01)
[2020-08-24] MEDS ORDERED: fentaNYL 100 MCG/2 ML INJECTION (J3010) As Ordered ONE (09:52)
--- NOTE | 2020-08-24 09:54 | ROOPDOC ---
[facility] Report Of Operation Report of Operation DATE OF PROCEDURE: 08/24/2020 PREPROCEDURE DIAGNOSES: Abnormal uterine bleeding, chronic pelvic pain. POSTPROCEDURE DIAGNOSES: Same. PROCEDURE: Robotic-assisted total laparoscopic hysterectomy, bilateral salpingectomy, cystoscopy SURGEON: Alden Snyder D.O. FACOG LACE PAPER MACHINE OPERATOR: Pao Fonseca ANESTHESIA: General endotracheal. ESTIMATED BLOOD LOSS: Approximately 100 mL. FLUIDS REPLACED: 1300 mL LR URINE OUTPUT: 50 mL COMPLICATIONS: None. FINDINGS: Normal-appearing ovaries bilaterally. Uterus was approximately 10 centimeters in greatest dimension. Cystoscopy: Bilateral ureteral orifice efflux, no bladder injury/suture material. PREOPERATIVE ANTIBIOTIC PROPHYLAXIS: Gentamicin 120 mg IV 1, clindamycin 900 mg IV 1 SPECIMEN(S): Uterus w/ cervix, bilateral fallopian tubes DESCRIPTION OF PROCEDURE: The patient was counseled, consented on the respective benefits, indications, alternatives of procedure. Informed consent was obtained. She was taken to the operating room with an IV running. She was placed on the operating table in dorsal supine position. Gen. anesthesia was administered and the airway was secured without any difficulty. She was placed in the low lithotomy position. . She was prepared and draped in the normal sterile fashion. A time out was performed per protocol. A Majano catheter was placed under sterile conditions. A sterile speculum was placed resulting in good visualization of the cervix. A single-tooth tenaculum was used to grasp the anterior lip cervix. The cervix was sequentially dilated with Brayan dilators. A V-Care uterine manipulator was placed without any difficulty. The single-tooth tenaculum was removed, as well as the speculum. A sterile glove switch was performed. Attention was turned to the abdomen. A 2mm incision was made in the umbilicus, and through this incision a Veress needle was inserted into the intraperitoneal cavity. Intraperitoneal placement was confirmed with ease of flow of normal saline, positive drop test, no return on aspiration, and an opening pressure of less than 10 mmHg upon initial insufflation. The abdomen was insufflated with 2 L of gas. The Veress needle was removed. A supraumbilical 8 mm incision was made. Through this incision, the robotic trochar/cannula was inserted into the intraperitoneal cavity under direct visualization. No incidental bleeding nor injury was noted. Patient was placed in 30 Trendelenburg. The right and left trocars/cannulas were placed on both the right and left side through 8 mm incisions, guided by laparoscopic visualization. No incidental bleeding nor injury was noted. The robot was docked in typical fashion. The instruments were inserted, guided by laparoscopic visualization. My attention was turned to the robotic console. Using the vessel sealer device, the right and left fallopian tubes were amputated. The fallopian tubes were brought through the assist-port cannula without any difficulty. The right utero-ovarian ligament and right round ligament were sequentially clamped, coagulated and transected with the vessel sealer device. The vesicouterine p eritoneum was dissected with the vessel sealer device to create the bladder flap, thus mobilizing the lower uterine segment and cervix off of the bladder. The right uterine vasculature was sequentially clamped, coagulated and transected above the colpotomy cup. The left utero-ovarian ligament and left round ligament were sequentially clamped, coagulated and transected with the vessel sealer device. The remainder of the bladder flap was dissected using the vessel sealer device and blunt dissection. The left uterine vasculature was sequentially clamped, coagulated and transected above the colpotomy cup. The outline of the entire V- care colpotomy cup was able to be delineated. Excellent blanching of the uterus was noted. A circumferential colpotomy was performed using the da Cameron monopolar kareem, following the contour of the cup. The amputated cervix and uterus were brought through the colpotomy into and out of the vagina, intact as one unit. The colpotomy was closed with the V-lock barbed suture in running fashion, thus creating the vaginal cuff. Excellent hemostasis was noted throughout the steps above. Raysa was placed over the vaginal cuff to ensure hemostasis. The instruments were removed from the abdomen and the robot was un-docked. The gas was released from the abdomen and the patient was taken out of Trendelenburg. I re-scrubbed, and attention was turned to the pelvis. The Majano catheter was removed. The cystoscope was placed transurethrally into the bladder and normal saline was instilled. No bladder injury/suture material was noted. IV methylene blue had been administered by anesthesia and bilateral UO efflux was confirmed. The fluid was drained out of the bladder through the cystoscope device, then the cystoscope was removed. The vagina was copiously irrigated. A sterile digital vaginal exam revealed no significant bleeding and an intact vaginal cuff. A sterile glove switch was performed. The da Cameron cannulas were removed. The skin incisions were closed with 4-0 Monocryl in subcuticular fashion. Sponge, needle and instrument counts were correct per protocol. The patient tolerated the entire procedure very well. She was transferred to the PACU in good and stable condition. DO EDGAR Stafford JONATHAN R. DO Aug 24, 2020 09:54
[2020-08-24] MEDS: fentaNYL 100 MCG/2 ML INJECTION (J3010) IV PRN ×2 (09:55→10:00)
[2020-08-24] MEDS ORDERED: PERC5TAB12 PO (09:56)
[2020-08-24] MEDS ORDERED: COLA100C5 PO (09:58)
[2020-08-24] MEDS ORDERED: LR 1,000 ML IV SCH ×2 (10:00)
[2020-08-24] MEDS ORDERED: diphenhydrAMINE 50MG/ML VIAL (J1200) IV PRN (10:00)
[2020-08-24] MEDS ORDERED: ONDANSETRON 4MG/2ML VIAL IV PRN ×2 (10:00→10:15)
[2020-08-24] MEDS ORDERED: HYDROMORPHONE HCL 0.5 MG/ 0.5 ML SYRINGE (J1170 PER 1) IV PRN (10:00)
[2020-08-24] MEDS ORDERED: oxyCODONE 5MG TAB PO PRN (10:00)
[2020-08-24] MEDS ORDERED: PROMETHAZINE INJ 25 MG/ML VIAL (J2550) IV PRN (10:15)
[2020-08-24] MEDS ORDERED: KETOROLAC 30 MG/ML 1ML VIAL IV PRN (12:30)
[2020-08-24] MEDS ORDERED: PERCOCET 5MG/325MG TAB PO PRN (12:45)
[2020-08-24 13:31] VITALS: BP 135/70
[2020-08-24 14:34] VITALS: BP 131/66
[2020-08-24 15:25] VITALS: BP 121/63
[2020-08-24 16:32] VITALS: BP 120/65
== END 2020-08-24 18:45 | disposition home or self-care (01) ==
LOC: M SDC 06:20 → M MSPAV 12:54 → M SDC 18:45
PROVIDERS: ATTEND Obstetrics & Gynecology
DX: N93.9 Abnormal uterine and vaginal bleeding, unspecified (principal); R10.2 Pelvic and perineal pain; N72 Inflammatory disease of cervix uteri; Z86.73 Personal history of transient ischemic attack (TIA), and cerebral infarction without residual deficits; Z79.02 Long term (current) use of antithrombotics/antiplatelets; Z79.899 Other long term (current) drug therapy; Z88.0 Allergy status to penicillin; Z88.8 Allergy status to other drugs, medicaments and biological substances
CPT/HCPCS: 36415; 58571; 81025; 84703; 85027; 86850; 86900; 86901; 88307; J1100; J1170; J1200; J1580; J1885; J2250; J2405; J2765; J3010; Q9968; S2900

== ENCOUNTER → 2020-11-29 | Outpatient (REF) | payer OTHER ==
[~2020-11-29] MED LIST changes: -CLINDAMYCIN 900 MG in IV 1 EA IV ONE; -GENTAMICIN 120 MG in D5W 50 ML IV ONE; -LIDOCAINE 1% MDV 20ML VIAL SQ PRN; -LR 1,000 ML IV ONE; +MONT10TA10 PO; -MONT5TAB2 PO; +PERC5TAB12 PO
[2020-11-29 16:33] LABS: BASO % 0.4 % (0.0-1.0); EOS # 0.1 10^3/uL (0.0-0.5); EOS % 0.5 % (0.0-3.0); HEMATOCRIT 39.6 % (36.0-47.0); HEMOGLOBIN 12.4 g/dl (12.0-15.5); LYMPH # 1.5 10^3/uL (1.5-5.0); MEAN CORPUSCULAR HGB CONC 31.3 g/dl (32.0-36.5); MEAN CORPUSCULAR VOLUME 79.8 fl (80.0-96.0); MONO # 0.6 10^3/uL (0.0-0.8); MONO % 5.3 % (2.0-8.0); NEUTROPHILS # 9.1 10^3/uL (1.5-8.5); NEUTROPHILS % 80.3 % (36.0-66.0); PLATELET COUNT, AUTOMATED 343 10^3/uL (150-450); RED BLOOD COUNT 4.96 10^6/uL (4.00-5.40); WHITE BLOOD COUNT 11.4 10^3/uL (4.0-10.0)
[2020-11-29 16:59] LABS: ALBUMIN 4.3 GM/DL (3.2-5.2); ALT/SGPT 20 U/L (12-78); BILIRUBIN,TOTAL 0.4 MG/DL (0.2-1.0); BLOOD UREA NITROGEN 10 MG/DL (7-18); CALCIUM LEVEL 9.5 MG/DL (8.5-10.1); CARBON DIOXIDE LEVEL 25 MEQ/L (21-32); CHLORIDE LEVEL 108 MEQ/L (98-107); CREATININE FOR GFR 0.86 MG/DL (0.55-1.30); FERRITIN 7 NG/ML (8-252); FREE T4 1.07 NG/DL (0.76-1.46); GLOMERULAR FILTRATION RATE > 60.0 (>60); GLUCOSE, FASTING 111 MG/DL (70-100); IRON (FE) 24 UG/DL (50-170); PERCENT SATURATION 6.4 % (13.2-45.0); POTASSIUM SERUM 3.9 MEQ/L (3.5-5.1); SODIUM LEVEL 139 MEQ/L (136-145); TOTAL IRON BINDING CAPACITY 375 UG/DL (250-450); TOTAL PROTEIN 7.9 GM/DL (6.4-8.2)
[2020-11-29 17:04] LABS: TOTAL 25(OH) VITAMIN D 19.2 NG/ML (30.0-100.0)
== END ==
LOC: M SFHCADAM 13:27
PROVIDERS: ATTEND Physician Assistant Medical
DX: R82.90 Unspecified abnormal findings in urine (principal); F33.1 Major depressive disorder, recurrent, moderate

== ENCOUNTER → 2021-01-08 | Outpatient (REF) | payer OTHER | LOC: M SFHCADAM 14:24 | PROVIDERS: ATTEND Physician Assistant | DX: A08.4 Viral intestinal infection, unspecified (principal) ==

== ENCOUNTER 2021-01-18 07:51 | Emergency (ER) | payer OTHER ==
[~2021-01-18] VITALS: Ht 162.6 cm; Wt 74.6 kg
[2021-01-18] MEDS ORDERED: SERT50TA29 PO (08:02)
[2021-01-18] MEDS ORDERED: IFERCAP PO (08:02)
[2021-01-18] MEDS ORDERED: TIZA4TAB4 PO (08:02)
[2021-01-18] MEDS ORDERED: NAPR-885 PO (08:02)
[2021-01-18] MEDS ORDERED: ONDANSETRON 4MG/2ML VIAL IV ONE (08:45)
[2021-01-18] MEDS ORDERED: MORPHINE 4 MG/ML 1ML VIAL/SYRINGE (J2270) IV ONE (08:45)
[2021-01-18] MEDS ORDERED: NS 1,000 ML IV ONE (08:45)
[2021-01-18 08:50] LABS: BASO # 0.1 10^3/uL (0.0-0.2); BASO % 0.5 % (0.0-1.0); EOS # 0.2 10^3/uL (0.0-0.5); EOS % 2.4 % (0.0-3.0); HEMATOCRIT 45.2 % (36.0-47.0); LYMPH # 2.1 10^3/uL (1.5-5.0); LYMPH % 21.5 % (24.0-44.0); MEAN CORPUSCULAR HEMOGLOBIN 27.5 pg (27.0-33.0); MEAN CORPUSCULAR HGB CONC 33.2 g/dl (32.0-36.5); MEAN CORPUSCULAR VOLUME 82.8 fl (80.0-96.0); MONO # 0.5 10^3/uL (0.0-0.8); MONO % 5.7 % (2.0-8.0); NEUTROPHILS # 6.6 10^3/uL (1.5-8.5); NEUTROPHILS % 69.6 % (36.0-66.0); PLATELET COUNT, AUTOMATED 335 10^3/uL (150-450); RED BLOOD COUNT 5.46 10^6/uL (4.00-5.40); WHITE BLOOD COUNT 9.5 10^3/uL (4.0-10.0)
[2021-01-18 09:11] LABS: ALBUMIN 4.5 GM/DL (3.2-5.2); ALT/SGPT 19 U/L (12-78); BILIRUBIN,DIRECT 0.1 MG/DL (0.0-0.2); BILIRUBIN,TOTAL 0.6 MG/DL (0.2-1.0); BLOOD UREA NITROGEN 14 MG/DL (7-18); CALCIUM LEVEL 9.3 MG/DL (8.5-10.1); CARBON DIOXIDE LEVEL 27 MEQ/L (21-32); CHLORIDE LEVEL 108 MEQ/L (98-107); CREATININE FOR GFR 0.84 MG/DL (0.55-1.30); GLOMERULAR FILTRATION RATE > 60.0 (>60); GLUCOSE, FASTING 92 MG/DL (70-100); LIPASE 140 U/L (73-393); POTASSIUM SERUM 4.4 MEQ/L (3.5-5.1); SODIUM LEVEL 140 MEQ/L (136-145)
--- NOTE | 2021-01-18 09:30 | REP ---
INDICATION: ruq pain, flank pain. COMPARISON: None. TECHNIQUE: Real-time sonographic evaluation of right upper quadrant performed. FINDINGS: The gallbladder demonstrates no evidence of intraluminal sludge or calculi, wall thickening or pericholecystic fluid. There is no intrahepatic or extrahepatic biliary dilatation, common bile duct measures 3 mm in maximum diameter. The liver demonstrates homogeneous echotexture with no gross mass. The visualized pancreas is grossly unremarkable, not optimally seen due to overlying bowel gas. The right kidney demonstrates no hydronephrosis, with a normal size of 10.6 cm in length. No free fluid is seen. IMPRESSION: Negative right upper quadrant ultrasound. <Electronically signed by Victor M Burton > 01/18/21 0995
[2021-01-18] MEDS ORDERED: ISOVUE-370 76% 100ML VIAL As Ordered ONE (10:53)
--- NOTE | 2021-01-18 11:34 | REP ---
INDICATION: ruq/flank pain. COMPARISON: None TECHNIQUE: Standard helical technique after the intravenous administration of 100 cc Isovue 370. No oral bowel preparatory contrast administration was given. FINDINGS: The lung bases are within normal limits. In the anterior segment the right lobe of the liver there is a 1.5 cm sized enhancing focus. The liver is otherwise unremarkable. Gallbladder is within normal limits. The spleen, pancreas, adrenal glands, and kidneys are within normal limits. The abdominal aorta and para-aortic regions are within normal limits. Limited evaluation of the bowel loops and the mesenteries show no abnormalities. The appendix is well visualized and is within normal limits. There is no free air. There is a trace amount of free fluid in the pelvis. In the right adnexa there is a 3.9 by 2.4 by 4.1 cm sized mixed density structure. The osseous structures are within normal limits. IMPRESSION: 1. Right adnexal finding, as described above, most consistent with a spontaneously ruptured right ovarian cyst. 2. Enhancing liver lesion as described above most likely a small vascular anomaly, however, hepatic MRI suggested for confirmation. <Electronically signed by Devon Koch > 01/18/21 [id number]
[2021-01-18] MEDS ORDERED: HYDR-3713 PO (12:13)
[2021-01-18 12:18] VITALS: BP 133/82
[2021-01-18] MEDS ORDERED: HYDR-3715 PO (12:23)
--- NOTE | 2021-01-19 07:47 | ED PDOC ---
Post-Departure Follow-Up case casiano faxed formal report of ct abd/p for fu Steffi Rodrigues MD January 19, 2021 07:47
== END 2021-01-18 13:07 | disposition home or self-care (01) ==
LOC: M ED 07:51
DX: R10.9 Unspecified abdominal pain (principal); R93.2 Abnormal findings on diagnostic imaging of liver and biliary tract; N83.201 Unspecified ovarian cyst, right side; Z88.1 Allergy status to other antibiotic agents; Z88.2 Allergy status to sulfonamides
CPT/HCPCS: 36415; 74177; 76705; 80048; 80076; 81001; 83690; 84702; 85025; 96361; 96374; 96375; 99284; J2270; J2405; Q9967

== ENCOUNTER → 2021-03-01 | Outpatient (CLI) | payer OTHER ==
[~2021-03-01] MED LIST changes: +HYDR-3713 PO; +HYDR-3715 PO; +IFERCAP PO; +NAPR-885 PO; +SERT50TA29 PO; +TIZA4TAB4 PO
== END ==
LOC: M RAD 16:57
PROVIDERS: ATTEND Physician Assistant Medical
DX: R93.2 Abnormal findings on diagnostic imaging of liver and biliary tract (principal)

== ENCOUNTER → 2021-03-01 | Outpatient (CLI) | payer OTHER ==
--- NOTE | 2021-03-03 11:11 | REP ---
INDICATION: N83.207 RT ADNEXAL CYSTIC MASS,? RUPTURED COMPARISON: None. TECHNIQUE: Transabdominal pelvic ultrasound followed by transvaginal examination for better evaluation of the endometrium and adnexa with color Doppler evaluation of the ovaries. FINDINGS: Bladder is unremarkable and measures 12.4 minute 9.7 x 9.2 cm. Prior hysterectomy. Right ovary is normal in appearance and vascularity without torsion or significant cyst. Multiple follicles noted. Right ovary measures 3.0 x 2.3 x 3.0 cm; R I = 0.51. Left ovary was not identified on either transabdominal or transvaginal imaging. No pelvic fluid or adnexal mass lesion. IMPRESSION: Normal right ovarian follicles and dominant follicle. No pelvic fluid or adnexal mass lesion. Status post hysterectomy. Left ovary not visualized. <Electronically signed by Randall Handley > 03/03/21 1103
== END ==
LOC: M WHC 12:56
PROVIDERS: ATTEND Obstetrics & Gynecology
DX: N83.201 Unspecified ovarian cyst, right side (principal)

== ENCOUNTER → 2021-03-15 | Outpatient (CLI) | payer OTHER ==
--- NOTE | 2021-03-15 11:38 | REP ---
INDICATION: ABN CT OF LIVER. COMPARISON: CT 01/18/2021. TECHNIQUE: Multiple sequences obtained in the axial coronal planes prior to and following the intravenous administration of 14 mL ProHance. FINDINGS: The liver is enlarged. The length of the liver is approximately 23 cm. No signal abnormality is seen on precontrast images. No abnormal enhancement is seen on postcontrast images. There is no suspicious enhancing mass in the arterial phase of postcontrast imaging. No other abnormality is seen on the more delayed contrast images. The gallbladder is grossly unremarkable with no evidence of filling defect or wall thickening. The spleen is normal in size with no intrinsic abnormality. The adrenal glands are normal. No pancreatic mass is seen. There is no pancreatic duct or common bile duct dilatation. The kidneys are normal. There is no evidence of adenopathy or free fluid. IMPRESSION: Hepatomegaly. No liver nodule is identified. The finding on the prior CT of 01/18/2021 is most consistent with benign transient parenchymal contrast and attenuation differences. <Electronically signed by Victor M Burton > 03/15/21 8211
== END ==
LOC: M PLARAD 08:05
PROVIDERS: ATTEND Physician Assistant Medical
DX: R93.2 Abnormal findings on diagnostic imaging of liver and biliary tract (principal); R16.0 Hepatomegaly, not elsewhere classified

== ENCOUNTER → 2021-05-14 | Outpatient (CLI) | payer OTHER ==
[2021-05-14 13:45] LABS: ALBUMIN 4.1 GM/DL (3.2-5.2); ALT/SGPT 28 U/L (12-78); BILIRUBIN,DIRECT 0.2 MG/DL (0.0-0.2); BILIRUBIN,TOTAL 0.7 MG/DL (0.2-1.0); HEPATITIS A ANTIBODY IGM NEGATIVE (NEGATIVE); HEPATITIS B CORE ANTIBODY IGM NEGATIVE (NEGATIVE); HEPATITIS B SURFACE ANTIGEN NEGATIVE (NEGATIVE); HEPATITIS C VIRUS ABY INDEX < 0.0 INDEX (<0.8); IRON (FE) 151 UG/DL (50-170); PERCENT SATURATION 43.3 % (13.2-45.0); TOTAL IRON BINDING CAPACITY 349 UG/DL (250-450); TOTAL PROTEIN 7.8 GM/DL (6.4-8.2)
[2021-05-16 16:08] LABS: ANCA-ATYPICAL <1:20 titer (Neg:<1:20); ANTI DOUBLE STRAND-DNA AB 10 IU/mL (0-9); ANTI-MITOCHONDRIAL ANTIBODY <20.0 Units (0.0-20.0); ANTINUCLEAR ANTIBODIES DIRECT Positive (Negative); CERULOPLASMIN 25.5 mg/dL (19.0-39.0); CYTOPLASMIC NEUTROP AB ANCA-C <1:20 titer (Neg:<1:20); PERINUCLEAR AB ANCA-P <1:20 titer (Neg:<1:20); RNP ANTIBODIES 0.2 AI (0.0-0.9); SJOGREN'S ANTI SS-A <0.2 AI (0.0-0.9); SJOGREN'S ANTI SS-B <0.2 AI (0.0-0.9); SMITH ANTIBODIES <0.2 AI (0.0-0.9); TISSUE TRANSGLUTAMINASE IgA <2 U/mL (0-3)
== END ==
LOC: M LAB 10:55
PROVIDERS: ATTEND Internal Medicine Gastroenterology
DX: R16.0 Hepatomegaly, not elsewhere classified (principal)

== ENCOUNTER → 2021-05-30 | Outpatient (CLI) | payer OTHER ==
--- NOTE | 2021-05-30 11:14 | REP ---
INDICATION: MYELOPROLIFERATIVE DZ. COMPARISON: Gallbladder ultrasound 01/18/2021. TECHNIQUE: Real-time sonographic evaluation of ABDOMEN PERFORMED, WITH DUPLEX DOPPLER EVALUATION OF PORTAL VASCULATURE. FINDINGS: The gallbladder demonstrates no evidence of intraluminal sludge or calculi, wall thickening or pericholecystic fluid. There is no intrahepatic or extrahepatic biliary dilatation, common bile duct measures 4 mm in maximum diameter. The liver and pancreas demonstrates homogeneous echotexture with no gross mass. The length of the liver is 20.6 Cm compatible with mild hepatomegaly. Spleen is normal in size with no intrinsic abnormality, measuring 11.0 cm in length. There is no evidence of hydronephrosis, cyst, mass, or calculus in either kidney. The right kidney measures 11.0 x 5.6 x 4.5 cm. Left renal dimensions are 12.4 x 5.0 x 5.1 cm. The abdominal aorta is normal in caliber with no aneurysm. No free fluid is seen. The main portal vein measures 16 mm in diameter. The splenic vein and portal veins demonstrate normal direction of flow, with normal flow velocities and waveforms. There is no portal vein thrombosis. Hepatic veins are patent with no thrombus. Patent main hepatic artery demonstrates peak systolic velocity of 89 centimeters/second. IMPRESSION: Mild hepatomegaly. Portal vasculature demonstrates normal direction of flow with no thrombosis. No evidence of hepatic vein thrombosis. Prominent diameter of main portal vein 16 mm suggests possible portal hypertension. <Electronically signed by Victor M Burton > 05/30/21 1118
== END ==
LOC: M RAD 09:34
PROVIDERS: ATTEND Internal Medicine Gastroenterology
DX: R16.0 Hepatomegaly, not elsewhere classified (principal)

== ENCOUNTER → 2021-08-19 | Outpatient (CLI) | payer OTHER ==
[~2021-08-19] MED LIST changes: +CLIN-250 PO; -CLIN300C6 PO; -MONT10TA10 PO; +MONT10TA97 PO; +TIZA10TA PO; -TIZA4TAB4 PO
== END ==
LOC: M LABSMTC 11:57
PROVIDERS: ATTEND Anesthesiology
DX: Z01.812 Encounter for preprocedural laboratory examination (principal); Z20.822 Contact with and (suspected) exposure to COVID-19

== ENCOUNTER 2021-08-23 10:51 | Day surgery (SDC) | payer OTHER ==
[~2021-08-23] VITALS: Ht 162.6 cm; Wt 82.1 kg
[~2021-08-23 10:51] MED LIST changes: +MONT10TA10 PO; -MONT10TA97 PO; +NS 1,000 ML IV ONE; -TIZA10TA PO; +TIZA4TAB4 PO
--- OUTSIDE RECORDS SUMMARY | 2021-08-23 10:55 | CCD | Continuity of Care Document ---
Author Author Jennifer OZUNA Organization Unknown Address [address] [place] [address] [place] [address] Phone [phone] Care Team Providers Care Crew Manager Name Role Phone [facility] AUTM [phone] Problems Description No Information Available Social History Type Date Description Comments Sex Unknown Tobacco Use Start: Unknown Never Smoked Cigarettes ETOH Use Rarely consumes alcohol Tobacco Use Start: Unknown Patient has never smoked Tobacco Use Start: Unknown The Patient Has Never Vaped Smoking Status Reviewed: 07/17/21 The Patient Has Never Vaped Allergies and adverse reactions Active Allergies Criticality Reaction | Severity Comments Date Amoxicillin Unable to assess criticality Anaphylaxis 04/25/2017 Minocycline Unable to assess criticality Anaphylaxis 04/25/2017 Nitrofurantoin, Macrocrystals / Nitrofurantoin, Monohy drate Unable to assess criticality Anaphylaxis 04/25/2017 Medications Active Medications SIG Qnty Indications Ordering Provide r Date Ondansetron 8mg Tablets Dispers 1 tablet dissolve on tongue every 8 hours as needed for nausea/vomiting 10tabs A08.4 Sushant Kauffman JR., M.D. 07/17/2021 Plavix 75mg Tablets Unknown Singulair 10mg Tablets 1 tab by mouth qdaily Unknown Margarita Allergy Unknown 0 Vitamin D High Potency Unknown Sertraline HCL Unknown Medications Administered in Office Medication SIG Qnty Indications Ordering Provider Date Methylprednisolone Sodium Succinate To 1 25 MG Injection Les Harmon Immunizations Description No Information Available Vital Signs Date Vital Result Comment 07/17/2021 10:26am BP Systolic 125 mmHg BP Diastolic 84 mmHg Heart Rate 85 /min Respiratory Rate 16 /min O2 % BldC Oximetry 98 % Body Temperature 98.4 F Weight 170.00 lb Height 64 inches 5'4" BMI (Body Mass Index) 29.2 kg/m2 Pain Level 6 01/14/2021 11:44am BP Systolic 145 mmHg BP Diastolic 92 mmHg Heart Rate 80 /min Respiratory Rate 24 /min O2 % BldC Oximetry 99 % Body Temperature 97.3 F Weight 160.00 lb Height 64 inches 5'4" BMI (Body Mass Index) 27.5 kg/m2 Pain Level 10 Results Description No Information Available Procedures Date Code Description Status 07/17/2021 97029 Office/Outpatient Established Lo w MDM 20-29 Min Completed Medical Devices Description No Information Available Encounters Type Date Location Provider Dx Diagnosis Office Visit 07/17/2021 9:20a Main Office Alden Ozuna, Les A0 8.4 Viral intestinal infection, unspecified Z20.828 Contact w and exposure to ot h viral communicable diseases Assessments Date Code Description Provider 07/17/2021 A08.4 Viral intestinal infection, unsp ecified Les Harmon 07/17/2021 Z20.828 Contact with and (dave spected) exposure to other viral communicable diseases Les Harmon Plan of Treatment No Information Available Functional Status Description No Information Available Mental Status Description No Information Available Referrals Description No Information Available
--- OUTSIDE RECORDS SUMMARY | 2021-08-23 10:55 | CCD | Continuity of Care Document ---
Author Jennifer Jiang PA-C Organization Unknown Address [address], [address] [place] [address] Phone [phone] Care Team Providers Care Hot Roll Laminator Name Role Phone Omaira Bennett R.P.A. AUTM [phone] Problems Description No Information Available Social History Type Date Description Comments Sex Unknown ETOH Use 1-2 A Week Tobacco Use Start: Unknown Non Smoker Recreational Drug Use Denies Drug Use Allergies and adverse reactions Active Allergies Criticality Reaction | Severity Comments Date Amoxicillin Unable to assess criticality 10/05/2019 Minocycline Unable to assess criticality 10/05/2019 Macrobid Unable to assess criticality 10/05/2019 Medications Active Medications SIG Qnty Indications Ordering Provide r Date Azithromycin 250mg Tablets Take 2 Tablets day 1. Then take 1 tablet per day x4 days. 6tabs Kalyan Huggins PA-C 08/07/2021 Plavix 75mg Tablets 1 by mouth every day Unknown Singulair 10mg Tablets 1 by mouth every day Unknown Margarita Allergy 180mg Tablets 1 by mouth every day Unknown Flonase Allergy Relief 50mcg/Act Suspension 2 sprays each nares 9.900ml John Chiu MD Ferrex 150 150mg Capsules zo ly Unknown Vitamin D 25mcg (1000 Ut) Tablets take 1 tab by mouth daily Unknown Sertraline HCL 25mg Tablets Unknown History Medications Magnesium Citrate 1.745GM/30ML Kaia ution one 10 oz bottle green or clear only, use for additional prep at 2-3 days before procedure 296ml R16.0 Ronny Batista MD 05/14/2021 - Miralax 17GM/Scoop Powder use as directed see dr batista colon preparation instructions 510gm R16.0 Austen id MD Tom 05/14/2021 - 10/07/2020 Immunizations Description No Information Available Vital Signs Date Vital Result Comment 08/07/2021 2:41pm BP Systolic 141 mmHg BP Diastolic 90 mmHg Heart Rate 70 /min O2 % BldC Oximetry 98 % Height 64 inches 5'4" Weight 183.00 lb BMI (Body Mass Index) 31.4 kg/m2 [place] Body Weight 120 lb Weight 83.009 kg BSA (Body Surface Area) 1.88 m2 05/14/2021 9:18am BP Systolic 131 mmHg BP Diastolic 91 mmHg Height 64 inches 5'4" Weight 174.00 lb BMI (Body Mass Index) 29.9 kg/m2 [place] Body Weight 120 lb Weight 78.926 kg BSA (Body Surface Area) 1.84 m2 Results Test Acquired Date Facility Test Result H/L Range Note Laboratory test finding 05/14/2021 [facility] Main Lab [address] [place], [place] [id number] [phone] Tissue Transglutaminase IgA <2 U/mL Normal 0-3 1 Immunoglobulin A 287.0 mg/dL Normal 70-400 2 Antinuclear Antibodies 05/14/2021 [facility] Main Lab [address] [place] [address] [phone] Antinuclear Antibodies Direct Positive Abnormal Ne gative Anti Double Strand-Dna AB 10 IU/mL High 0-9 3 RECEPTIONIST CLERK Antibodies 0.2 AI Normal 0.0-0.9 Ramos Antibodies <0.2 AI Normal 0.0-0.9 Sjogren's Anti SS-A <0.2 AI Normal 0.0-0.9 Sjogren's Anti SS-B <0.2 AI Normal 0.0-0.9 Catalina Comment (SEE NOTE) Normal . 4 Laboratory test finding 05/14/2021 [facility] Main Lab [address] [place] [address] [phone] Anti-Mitochondrial Antibody <20.0 units Normal 0.0 -20.0 5 Anti-Neutrophil Cytoplasmic AB 05/14/2021 [facility] Main Lab [address] [place] [address] [phone] Cytoplasmic Neutrop AB Anca-C <1:20 titer Normal N eg:<1:20 Perinuclear AB Anca-P <1:20 titer Normal Neg:<1:20 6 Anca-Atypical <1:20 titer Normal Neg:<1:20 7 Total Iron Binding Capacit 05/14/2021 [facility] Main Lab [address] [place] [address] [phone] Iron (Fe) 151 g/dL Normal 50-170 Total Iron Binding Capacity 349 g/dL Normal 250-450 Percent Saturation 43.3 % Normal 13.2-45.0 Laboratory test finding 05/14/2021 [facility] Main Lab [address] [place] [address] [phone] Ceruloplasmin 25.5 mg/dL Normal 19.0-39.0 8 Hepatitis Profile 05/14/2021 [facility] Main Lab [address] [place] [address] [phone] Hepatitis C Virus Shalini Index < 0.0 INDEX Normal <0. 8 Hepatitis B Surface Antigen NEGATIVE Normal Negative Hepatitis B Core Antibody Igm NEGATIVE Normal Negative Hepatitis A Antibody Igm NEGATIVE Normal Negative Liver Profile 05/14/2021 [facility] Main Lab [address] [place] [address] [phone] Ast/Sgot 13 U/L Normal 7-37 Alt/SGPT 28 U/L Normal 12-78 Alkaline Phosphatase 71 U/L Normal 45-117 Bilirubin,Total 0.7 mg/dL Normal 0.2-1.0 Bilirubin,Direct 0.2 mg/dL Normal 0.0-0.2 Total Protein 7.8 GM/DL Normal 6.4-8.2 Albumin 4.1 GM/DL Normal 3.2-5.2 Albumin/Globulin Ratio 1.1 Low 1.2-2.2 1 Negative 0 - 3 Weak Positive 4 - 10 Positive >10 . Tissue Transglutaminase (tTG) has been identified as the endomysial antigen. Studies have demonstr- ated that endomysial IgA antibodies have over 99% specificity for gluten sensitive enteropathy. 2 note:<nlbl:[facility] ed> 3 Negative <5 Equivocal 5 - 9 Positive >9 4 . Autoantibody Disease Association Condition Frequency -------- --------- Antinuclear Antibody, SLE, mixed connective Direct (CATALINA-D) tissue diseases -------- --------- dsDNA SLE 40 - 60% -------- --------- Chromatin Drug induced SLE 90% SLE 48 - 97% -------- --------- SSA (Ro) SLE 25 - 35% Sjogren's Syndrome 40 - 70% Lupus 100% -------- --------- SSB (La) SLE 10% Sjogren's Syndrome 30% ------- --------- Sm (anti-Ramos) SLE 15 - 30% ------- --------- RECEPTIONIST CLERK Mixed Connective Tissue Disease 95% (U1 nRNP, SLE 30 - 50% anti-ribonucleoprotein) Polymyositis and/or Dermatomyositis 20% -------- --------- Scl-70 (antiDNA Scleroderma (diffuse) 20 - 35% topoisomerase) Crest 13% -------- --------- Denise-1 Polymyositis and/or Dermatomyositis 20 - 40% -------- --------- Centromere B Scleroderma - Crest variant 80% 5 Negative 0.0 - 20.0 Equivocal 20.1 - 24.9 Positive >24.9 . Mitochondrial (M2) Antibodies are found in 90-96% of patients with primary biliary cirrhosis. 6 The presence of positive flu orescence exhibiting P-ANCA or C-ANCA patterns alone is not specific for the diagnosis of Christal's Granulomatosis (WG) or microscopic polyangiitis. Decisions about treatment should not be based solely on ANCA IFA results. The International ANCA Group Consensus recommends follow up testing of positive sera with both LA- 3 and MPO-ANCA enzyme immunoassays. As m any as 5% serum samples are positive only by EIA. Ref. AM J Clin Pathol 1999;111:507-513. 7 The atypical pANCA pattern h as been observed in a significant percentage of patients with ulcerative colitis, primary sclerosing cholangitis and autoimmune hepatitis. 8 Performed at: [facility] [employer] [id number] Mixed Livestock Farm Worker: Sarahy Muniz MD, Phone: [phone] Performed at: RN - [facility] [address] [id number] Mixed Livestock Farm Worker: Deneen Irene MD, Phone: [phone] Procedures Date Code Description Status 05/14/2021 15341 Office/Outpatient New Moderate M DM 45-59 Minutes Completed Medical Devices Description No Information Available Encounters Type Date Location Provider Dx Diagnosis Office Visit 05/14/2021 9:00a [facility] Gastroenterology Pra ctice Ronny Batista MD R16.0 Hepatomegaly, not elsewhere classified D50.9 Iron deficiency anemia, unsp ecified Assessments Date Code Description Provider 05/14/2021 R16.0 Hepatomegaly, not elsewhere clas sified Ronny Batista MD 05/14/2021 D50.9 Iron deficiency anemia, unspecif ied Ronny Batista MD Plan of Treatment Future Appointment(s):* 08/23/2021 10:00 am - Ronny Batista MD at [facility] Gastroenterology Practice Functional Status Description No Information Available Mental Status Description No Information Available Referrals Refer to Dr Reason for Referral Status Appt Ronny Doty M.D. HEPATOMEGALY Scheduled 06/13/2021 [facility], Gastroenterology [address], [address] [place] [address] [phone]
--- OUTSIDE RECORDS SUMMARY | 2021-08-23 10:55 | CCD | Continuity of Care Document ---
Author Jennifer Jiang PA-C Organization Unknown Address [address], [address] [place] [address] Phone [phone] Care Team Providers Care Svp Research & Ebusiness Operations Name Role Phone Omaira Bennett R.P.A. AUTM [phone] Problems Description No Information Available Social History [...] lb BMI (Body Mass Index) 31.4 kg/m2 [place] Body Weight 120 lb Weight 83.009 kg BSA (Body Surface Area) 1.88 m2 05/14/2021 9:18am BP Systolic 131 mmHg BP Diastolic 91 mmHg Height 64 inches 5'4" Weight 174.00 lb BMI (Body Mass Index) 29.9 kg/m2 [place] Body Weight 120 lb Weight 78.926 kg BSA (Body Surface Area) 1.84 m2 Results Test Acquired Date Facility Test Result H/L Range Note Laboratory test finding 05/14/2021 [facility] Main Lab [address] [place], [place] [address] [phone] Tissue Transglutaminase IgA <2 U/mL Normal 0-3 1 Immunoglobulin A 287.0 mg/dL Normal 70-400 2 Antinuclear Antibodies 05/14/2021 [facility] Main Lab [address] [place] [address] [phone] Antinuclear Antibodies Direct Positive Abnormal Ne gative Anti Double Strand-Dna AB 10 IU/mL High 0-9 3 DIGITAL PROJECT COORDINATOR Antibodies 0.2 AI Normal 0.0-0.9 Ramos Antibodies <0.2 AI Normal 0.0-0.9 Sjogren's Anti SS-A <0.2 AI Normal 0.0-0.9 Sjogren's Anti SS-B <0.2 AI Normal 0.0-0.9 Catalina Comment (SEE NOTE) Normal . 4 Laboratory test finding 05/14/2021 [facility] Main Lab [address] [place] [address] [phone] Anti-Mitochondrial Antibody <20.0 units Normal 0.0 -20.0 5 Anti-Neutrophil Cytoplasmic AB 05/14/2021 [facility] Main Lab [address] [place] [address] [phone] Cytoplasmic Neutrop AB Anca-C <1:20 titer Normal N eg:<1:20 Perinuclear AB Anca-P <1:20 titer Normal Neg:<1:20 6 Anca-Atypical <1:20 titer Normal Neg:<1:20 7 Total Iron Binding Capacit 05/14/2021 [facility] Main Lab [address] [place] [address] [phone] Iron (Fe) 151 g/dL Normal 50-170 Total Iron Binding Capacity 349 g/dL Normal 250-450 Percent Saturation 43.3 % Normal 13.2-45.0 Laboratory test finding 05/14/2021 [facility] Main Lab [address] [place] [address] [phone] Ceruloplasmin 25.5 mg/dL Normal 19.0-39.0 8 Hepatitis Profile 05/14/2021 [facility] Main Lab [address] [place] [address] [phone] Hepatitis C Virus Shalini Index < 0.0 INDEX Normal <0. 8 Hepatitis B Surface Antigen NEGATIVE Normal Negative Hepatitis B Core Antibody Igm NEGATIVE Normal Negative Hepatitis A Antibody Igm NEGATIVE Normal Negative Liver Profile 05/14/2021 [facility] Main Lab [address] [place] [address] [phone] Ast/Sgot 13 U/L Normal 7-37 Alt/SGPT 28 [...] 99% specificity for gluten sensitive enteropathy. 2 note:<nlbl:[facility] ed> 3 Negative <5 Equivocal 5 - [...] (anti-Ramos) SLE 15 - 30% ------- --------- DIGITAL PROJECT COORDINATOR Mixed Connective Tissue Disease 95% (U1 nRNP, [...] up testing of positive sera with both IA- 3 and MPO-ANCA enzyme immunoassays. As m any as 5% serum samples are positive only by EIA. Ref. AM J Clin Pathol 1999;111:507-513. 7 The atypical pANCA pattern h as been observed in a significant percentage of patients with ulcerative colitis, primary sclerosing cholangitis and autoimmune hepatitis. 8 Performed at: [facility] [employer] [id number] Neurology Stroke Physician: Sarahy Muniz MD, Phone: [phone] Performed at: RN - [facility] [address] [id number] Neurology Stroke Physician: Deneen Irene MD, Phone: [phone] Procedures Date Code Description Status 05/14/2021 69566 Office/Outpatient New Moderate M DM 45-59 Minutes Completed Medical Devices Description No Information Available Encounters Type Date Location Provider Dx Diagnosis Office Visit 05/14/2021 9:00a [facility] Gastroenterology Pra ctice Ronny Batista MD R16.0 Hepatomegaly, not elsewhere classified D50.9 Iron deficiency anemia, unsp ecified Assessments Date Code Description Provider 05/14/2021 R16.0 Hepatomegaly, not elsewhere clas sified Ronny Batista MD 05/14/2021 D50.9 Iron deficiency anemia, unspecif ied Ronny Batista MD Plan of Treatment Future Appointment(s):* 08/23/2021 10:00 am - Ronny Batista MD at [facility] Gastroenterology Practice Functional Status Description No Information Available Mental Status Description No Information Available Referrals Refer to Dr Reason for Referral Status Appt Ronny Doty M.D. HEPATOMEGALY Scheduled 06/13/2021 [facility], Gastroenterology [address], [address] [place] [address] [phone]
--- OUTSIDE RECORDS SUMMARY | 2021-08-23 10:55 | CCD | Continuity of Care Document ---
Author Author Jennifer OZUNA Organization Unknown Address [address] [place] [address] [place] [address] Phone [phone] Care Team Providers Care Coffee Bar Attendant Name Role Phone [facility] AUTM [phone] Problems Description No Information Available Social History [...] Available Procedures Date Code Description Status 07/17/2021 40317 Office/Outpatient Established Lo w MDM 20-29 Min [...]
--- OUTSIDE RECORDS SUMMARY | 2021-08-23 10:55 | CCD | Continuity of Care Document ---
Author Author Jennifer BATISTA MD Organization Unknown Address [address] [place] [address] Phone [phone] Care Team Providers Care Delivery Nurse Name Role Phone SabrinaOmaira R.P.A. AUTM [phone] Problems Description No Information Available Social History Type Date Description Comments Sex Unknown ETOH Use 1-2 A Week Tobacco Use Start: Unknown Non Smoker Recreational Drug Use Denies Drug Use Allergies, Adverse Reactions, Alerts Active Allergies Criticality Reaction | Severity Comments Date Amoxicillin Unable to assess criticality 10/05/2019 Minocycline Unable to assess criticality 10/05/2019 Macrobid Unable to assess criticality 10/05/2019 Medications Active Medications SIG Qnty Indications Ordering Provide r Date Magnesium Citrate 1.745GM/30ML Kaia ution one 10 oz bottle green or clear only, use for additional prep at 2-3 days before procedure 296ml R16.0 Ronny Batista MD 05/14/2021 Miralax 17GM/Scoop Powder use as directed see dr batista colon preparation instructions 510gm R16.0 Austen ricco Batista MD 05/14/2021 Plavix 75mg Tablets 1 by mouth every [...] daily Unknown Sertraline HCL 25mg Tablets Unknown Immunizations Description No Information Available Vital Signs Date Vital Result Comment 05/14/2021 9:18am BP Systolic 131 mmHg BP Diastolic 91 mmHg Height 64 inches 5'4" Weight 174.00 lb BMI (Body Mass Index) 29.9 kg/m2 [place] Body Weight 120 lb Weight 78.926 kg BSA (Body Surface Area) 1.84 m2 10/16/2020 2:57pm Height 64 inches 5'4" Weight 160.00 lb BMI (Body Mass Index) 27.5 kg/m2 [place] Body Weight 120 lb Weight 72.576 kg BSA (Body Surface Area) 1.78 m2 Results Test Acquired Date Facility Test Result H/L Range Note Laboratory test finding 05/14/2021 [facility] Main Lab [address] [place] [address] [phone] Tissue Transglutaminase IgA <2 U/mL Normal 0-3 1 Immunoglobulin A 287.0 mg/dL Normal 70-400 2 Antinuclear Antibodies 05/14/2021 [facility] Main Lab [address] [place] [address] [phone] Antinuclear Antibodies Direct Positive Abnormal Ne gative Anti Double Strand-Dna AB 10 IU/mL High 0-9 3 PUFFER TENDER Antibodies 0.2 AI Normal 0.0-0.9 Ramos Antibodies <0.2 AI Normal 0.0-0.9 Sjogren's Anti SS-A <0.2 AI Normal 0.0-0.9 Sjogren's Anti SS-B <0.2 AI Normal 0.0-0.9 Ivelisse Comment (SEE NOTE) Normal . 4 Laboratory test finding 05/14/2021 [facility] Main Lab [address] [place] [address] [phone] Anti-Mitochondrial Antibody <20.0 units Normal 0.0 -20.0 5 Anti-Neutrophil Cytoplasmic AB 05/14/2021 [facility] Main Lab [address] [place] [address] [phone] Cytoplasmic Neutrop AB Anca-C <1:20 titer Normal N eg:<1:20 Perinuclear AB Anca-P <1:20 titer Normal Neg:<1:20 6 Anca-Atypical <1:20 titer Normal Neg:<1:20 7 Total Iron Binding Capacit 05/14/2021 [facility] Main Lab [address] [place] [address] [phone] Iron (Fe) 151 g/dL Normal 50-170 Total Iron Binding Capacity 349 g/dL Normal 250-450 Percent Saturation 43.3 % Normal 13.2-45.0 Laboratory test finding 05/14/2021 [facility] Main Lab [address] [place] [address] [phone] Ceruloplasmin 25.5 mg/dL Normal 19.0-39.0 8 Hepatitis Profile 05/14/2021 [facility] Main Lab [address] [place] [address] [phone] Hepatitis C Virus Shalini Index < 0.0 INDEX Normal <0. 8 Hepatitis B Surface Antigen NEGATIVE Normal Negative Hepatitis B Core Antibody Igm NEGATIVE Normal Negative Hepatitis A Antibody Igm NEGATIVE Normal Negative Liver Profile 05/14/2021 [facility] Main Lab [address] [place] [address] [phone] Ast/Sgot 13 U/L Normal 7-37 Alt/SGPT 28 [...] 99% specificity for gluten sensitive enteropathy. 2 note:<nlbl:river_ady ed> 3 Negative <5 Equivocal 5 - 9 Positive >9 4 . Autoantibody Disease Association Condition Frequency -------- --------- Antinuclear Antibody, SLE, mixed connective Direct (IVELISSE-D) tissue diseases -------- --------- dsDNA SLE 40 - 60% -------- --------- Chromatin Drug induced SLE 90% SLE 48 - 97% -------- --------- SSA (Ro) SLE 25 - 35% Sjogren's Syndrome 40 - 70% Lupus 100% -------- --------- SSB (La) SLE 10% Sjogren's Syndrome 30% ------- --------- Sm (anti-Ramos) SLE 15 - 30% ------- --------- PUFFER TENDER Mixed Connective Tissue Disease 95% (U1 nRNP, [...] up testing of positive sera with both [place]- 3 and MPO-ANCA enzyme immunoassays. As m any as 5% serum samples are positive only by EIA. Ref. AM J Clin Pathol 1999;111:507-513. 7 The atypical pANCA pattern h as been observed in a significant percentage of patients with ulcerative colitis, primary sclerosing cholangitis and autoimmune hepatitis. 8 Performed at: - [facility] [id number] 61 Hvac Refrigeration Technician: aSrahy Muniz MD, Phone: [phone] Performed at: - [facility] [id number] Hvac Refrigeration Technician: Deneen Irene MD, Phone: [phone] Procedures Date Code Description Status 05/14/2021 11305 Office/Outpatient New Moderate M DM 45-59 Minutes Completed Medical Devices Description No Information Available Encounters Type Date Location Provider Dx Diagnosis Office Visit 05/14/2021 9:00a [facility] Gastroenterology Pra ctice Ronny Batista MD R16.0 Hepatomegaly, not elsewhere classified D50.9 Iron deficiency anemia, unsp ecified Assessments Date Code Description Provider 05/14/2021 R16.0 Hepatomegaly, not elsewhere clas leonardo Ronny Batista MD 05/14/2021 D50.9 Iron deficiency anemia, unspecif ied Ronny Batista MD Plan of Treatment 05/14/2021 - Ronny Batista MD* R16.0 Hepatomegaly, not elsewhere classified * D50.9 Iron deficiency anemia, unspecified * * New Medication:* Magnesium Citrate 1.745 GM/30ML * Miralax 17 GM/Scoop * New Orders:* EGD and Colonoscopy, Ordered: 05/14/21 * Comments:* sudeden ruq pain in december 2020. resolved after ER visit. had US and MRI abdomen. MRI shows 23 cm hepatomegaly --all sx resolved * Recommendations:* 1) US doppler RUQ assess for portal HTN 2) Labs 3) address iron defiocit /EGD/[place] Functional Status Description No Information Available Mental Status Description No Information Available Referrals Refer to Reason for Referral Status Appt Date Ronny Batista M.D. HEPATOMEGALY Scheduled 06/13/2021 [facility], Gastroenterology [address], [address] [place] [address] [phone]
--- OUTSIDE RECORDS SUMMARY | 2021-08-23 10:55 | CCD | Continuity of Care Document ---
Author Jennifer Jiang PA-C Organization Unknown Address [address], [address] [place] [address] Phone [phone] Care Team Providers Care Adoption Agent Name Role Phone Omaira Bennett R.P.A. AUTM [phone] Problems Description No Information Available Social History [...] 1 tablet per day x4 days. 6tabs Kalyna Huggins PA-C 08/07/2021 Plavix 75mg Tablets 1 [...] lb BMI (Body Mass Index) 31.4 kg/m2 [place] Body Weight 120 lb Weight 83.009 kg BSA (Body Surface Area) 1.88 m2 05/14/2021 9:18am BP Systolic 131 mmHg BP Diastolic 91 mmHg Height 64 inches 5'4" Weight 174.00 lb BMI (Body Mass Index) 29.9 kg/m2 [place] Body Weight 120 lb Weight 78.926 kg BSA (Body Surface Area) 1.84 m2 Results Test Acquired Date Facility Test Result H/L Range Note Laboratory test finding 05/14/2021 [facility] Main Lab [address] [place], [place] [phone] Tissue Transglutaminase IgA <2 U/mL Normal 0-3 1 Immunoglobulin A 287.0 mg/dL Normal 70-400 2 Antinuclear Antibodies 05/14/2021 [facility] Main Lab [address] [place] [address] [phone] Antinuclear Antibodies Direct Positive Abnormal Ne gative Anti Double Strand-Dna AB 10 IU/mL High 0-9 3 LICENSED INVESTMENT SALES ASSISTANT Antibodies 0.2 AI Normal 0.0-0.9 Ramos Antibodies <0.2 AI Normal 0.0-0.9 Sjogren's Anti SS-A <0.2 AI Normal 0.0-0.9 Sjogren's Anti SS-B <0.2 AI Normal 0.0-0.9 [place] Comment (SEE NOTE) Normal . 4 Laboratory test finding 05/14/2021 [facility] Main Lab [address] [place] [address] [phone] Anti-Mitochondrial Antibody <20.0 units Normal 0.0 -20.0 5 Anti-Neutrophil Cytoplasmic AB 05/14/2021 [facility] Main Lab [address] [place] [address] [phone] Cytoplasmic Neutrop AB Anca-C <1:20 titer Normal N eg:<1:20 Perinuclear AB Anca-P <1:20 titer Normal Neg:<1:20 6 Anca-Atypical <1:20 titer Normal Neg:<1:20 7 Total Iron Binding Capacit 05/14/2021 [facility] Main Lab [address] [place] [address] [phone] Iron (Fe) 151 g/dL Normal 50-170 Total Iron Binding Capacity 349 g/dL Normal 250-450 Percent Saturation 43.3 % Normal 13.2-45.0 Laboratory test finding 05/14/2021 [facility] Main Lab [address] [place] [address] [phone] Ceruloplasmin 25.5 mg/dL Normal 19.0-39.0 8 Hepatitis Profile 05/14/2021 [facility] Main Lab [address] [place] [address] [phone] Hepatitis C Virus Shalini Index < 0.0 INDEX Normal <0. 8 Hepatitis B Surface Antigen NEGATIVE Normal Negative Hepatitis B Core Antibody Igm NEGATIVE Normal Negative Hepatitis A Antibody Igm NEGATIVE Normal Negative Liver Profile 05/14/2021 [facility] Main Lab [address] [place] [address] [phone] Ast/Sgot 13 U/L Normal 7-37 Alt/SGPT 28 [...] 99% specificity for gluten sensitive enteropathy. 2 note:<nlbl:[facility] ed> 3 Negative <5 Equivocal 5 - [...] (anti-Ramos) SLE 15 - 30% ------- --------- LICENSED INVESTMENT SALES ASSISTANT Mixed Connective Tissue Disease 95% (U1 nRNP, [...] up testing of positive sera with both [place]- 3 and MPO-ANCA enzyme immunoassays. As m any as 5% serum samples are positive only by EIA. Ref. AM J Clin Pathol 1999;111:507-513. 7 The atypical pANCA pattern h as been observed in a significant percentage of patients with ulcerative colitis, primary sclerosing cholangitis and autoimmune hepatitis. 8 Performed at: [facility] [employer] [id number] Portable Machine Sander: Sarahy Muniz MD, Phone: [phone] Performed at: RN - [facility] [address] [id number] Portable Machine Sander: Deneen Irene MD, Phone: [phone] Procedures Date Code Description Status 05/14/2021 98777 Office/Outpatient New Moderate M DM 45-59 Minutes Completed Medical Devices Description No Information Available Encounters Type Date Location Provider Dx Diagnosis Office Visit 05/14/2021 9:00a [facility] Gastroenterology Pra ctice Ronny Batista MD R16.0 Hepatomegaly, not elsewhere classified D50.9 Iron deficiency anemia, unsp ecified Assessments Date Code Description Provider 05/14/2021 R16.0 Hepatomegaly, not elsewhere clas sified Ronny Batista MD 05/14/2021 D50.9 Iron deficiency anemia, unspecif ied Ronny Batista MD Plan of Treatment Future Appointment(s):* 08/23/2021 10:00 am - Ronny Batista MD at [facility] Functional Status Description No Information Available Mental Status Description No Information Available Referrals Refer to Dr Reason for Referral Status Appt Ronny Doty M.D. HEPATOMEGALY Scheduled 06/13/2021 [facility], Gastroenterology [address], [address] [place] [address] [phone]
--- OUTSIDE RECORDS SUMMARY | 2021-08-23 10:55 | CCD | Continuity of Care Document ---
Author Author Jennifer APARICIO PA-C Organization Unknown Address [address], [address] [place] [address] Phone [phone] Care Team Providers Care Power Originator Name Role Phone Omaira Bennett R.P.A. AUTM [phone] Problems Active Problems Provider Date Chronic sinusitis Kalyan Aparicio PA-C Onset: 08/07/2021 Social History Type Date Description Comments Sex [...] tablet per day x4 days. 6tabs Kalyan Aparicio PA-C 08/07/2021 Plavix 75mg Tablets 1 by [...] batista colon preparation instructions 510gm R16.0 Austen Batista MD 05/14/2021 - 10/07/2020 Immunizations Description No Information Available Vital Signs Date Vital Result Comment 08/07/2021 2:41pm BP Systolic 141 mmHg BP Diastolic 90 mmHg Heart Rate 70 /min O2 % BldC Oximetry 98 % Height 64 inches 5'4" Weight 183.00 lb BMI (Body Mass Index) 31.4 kg/m2 [place] Body Weight 120 lb Weight 83.009 kg BSA (Body Surface Area) 1.88 m2 05/14/2021 9:18am BP Systolic 131 mmHg BP Diastolic 91 mmHg Height 64 inches 5'4" Weight 174.00 lb BMI (Body Mass Index) 29.9 kg/m2 [place] Body Weight 120 lb Weight 78.926 kg BSA (Body Surface Area) 1.84 m2 Results Test Acquired Date Facility Test Result H/L Range Note Laboratory test finding 05/14/2021 [facility] Main Lab [address] [place] [address] [phone] Tissue Transglutaminase IgA <2 U/mL Normal 0-3 1 Immunoglobulin A 287.0 mg/dL Normal 70-400 2 Antinuclear Antibodies 05/14/2021 [facility] Main Lab [address] [place] [address] 3416331 [phone] Antinuclear Antibodies Direct Positive Abnormal Ne gative Anti Double Strand-Dna AB 10 IU/mL High 0-9 3 PIPE LAYER HELPER Antibodies 0.2 AI Normal 0.0-0.9 Ramos Antibodies <0.2 AI Normal 0.0-0.9 Sjogren's Anti SS-A <0.2 AI Normal 0.0-0.9 Sjogren's Anti SS-B <0.2 AI Normal 0.0-0.9 Ivelisse Comment (SEE NOTE) Normal . 4 Laboratory test finding 05/14/2021 [facility] Main Lab [address] [place] [address] [phone] Anti-Mitochondrial Antibody <20.0 units Normal 0.0 -20.0 5 Anti-Neutrophil Cytoplasmic AB 05/14/2021 [facility] Main Lab [address] [place] [address] [phone] Cytoplasmic Neutrop AB Anca-C <1:20 titer Normal N eg:<1:20 Perinuclear AB Anca-P <1:20 titer Normal Neg:<1:20 6 Anca-Atypical <1:20 titer Normal Neg:<1:20 7 Total Iron Binding Capacit 05/14/2021 [facility] Main Lab [address] [place] [address] [phone] Iron (Fe) 151 g/dL Normal 50-170 Total Iron Binding Capacity 349 g/dL Normal 250-450 Percent Saturation 43.3 % Normal 13.2-45.0 Laboratory test finding 05/14/2021 [facility] Main [address] [address] [phone] Ceruloplasmin 25.5 mg/dL Normal 19.0-39.0 8 Hepatitis Profile 05/14/2021 [facility] Main Lab [address] [place] [address] [phone] Hepatitis C Virus Shalini Index < 0.0 INDEX Normal <0. 8 Hepatitis B Surface Antigen NEGATIVE Normal Negative Hepatitis B Core Antibody Igm NEGATIVE Normal Negative Hepatitis A Antibody Igm NEGATIVE Normal Negative Liver Profile 05/14/2021 [facility] Main Lab [address] [place] [address] [phone] Ast/Sgot 13 U/L Normal 7-37 Alt/SGPT 28 [...] (anti-Ramos) SLE 15 - 30% ------- --------- PIPE LAYER HELPER Mixed Connective Tissue Disease 95% (U1 nRNP, [...] up testing of positive sera with both [place]- 3 and MPO-ANCA enzyme immunoassays. As m any as 5% serum samples are positive only by EIA. Ref. AM J Clin Pathol 1999;111:507-513. 7 The atypical pANCA pattern h as been observed in a significant percentage of patients with ulcerative colitis, primary sclerosing cholangitis and autoimmune hepatitis. 8 Performed at: [address] [id number] Automotive Service Consultant: Sarahy Muniz MD, Phone: [phone] Performed at: RN - [facility] [address], [place], [place] [id number] Automotive Service Consultant: Deneen Irene MD, Phone: [phone] Procedures Date Code Description Status 08/07/2021 10687 Office/Outpatient Established Lo w MDM 20-29 Min Completed 05/14/2021 99822 Office/Outpatient New Moderate M DM 45-59 Minutes Completed Medical Devices Description No Information Available Encounters Type Date Location Provider Dx Diagnosis Office Visit 08/07/2021 2:45p [facility] ENT Practice Kalyan Aparicio PA-C J32.9 Chronic sinusitis, unspecified Office Visit 05/14/2021 9:00a [facility] Gastroenterology [facility] ctice Ronny Batista MD R16.0 Hepatomegaly, not elsewhere classified D50.9 Iron deficiency anemia, unsp ecified Assessments Date Code Description Provider 08/07/2021 J32.9 Chronic sinusitis, unspecified C shawn Aparicio PA-C 05/14/2021 R16.0 Hepatomegaly, not elsewhere clas sified Ronny Batista MD 05/14/2021 D50.9 Iron deficiency anemia, unspecif ied Ronny Batista MD Plan of Treatment Future Appointment(s):* 08/23/2021 10:00 am - Ronny Batista MD at [facility] Gastroenterology Practice 08/07/2021 - Kalyan Aparicio PA-C* J32.9 Chronic sinusitis, unspecified Functional Status Description No Information Available Mental Status Description No Information Available Referrals Refer to Reason for Referral Status Appt Date Ronny Batista M.D. HEPATOMEGALY Scheduled 06/13/2021 [facility], Gastroenterology [address], [address] [place] [id number] [phone]
--- OUTSIDE RECORDS SUMMARY | 2021-08-23 10:55 | CCD ---
Author Author [facility] Organization [facility] Address Unknown Phone Unavailable Care Team Providers Care Python Java Developer Name Role Phone Omaira Pimentel Unavailable PROBLEMS Type Condition ICD9-CM Code [id number] Code Onset Dates Condition S tatus W/U Status Risk SNOMED Code Notes Problem Allergic rhinitis due to oth er allergic trigger, unspecified seasonality J30.89 Active confirmed 10688049 Problem Non-seasonal allergic rhinitis due to other allergic rogelio er J30.89 Active confirmed 52255336 Problem Brain aneurysm I67.1 Active confirmed 52639 9009 Problem Vitamin D deficiency E55.9 Active confirmed 20683770 Problem 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 Active confirmed 55508412 Problem Iron deficiency anemia, unspecified iron deficiency an emia type D50.9 Active confirmed 68938718 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 confirmed 49789166 Problem Abnormal uterine bleeding N93.9 Active confirmed 66310560705510 Problem Moderate episode of recurrent major depressive disorder F33.1 Active confirmed 485647755 Problem Anxiety F41.9 Active confirmed 63895483 ALLERGIES Allergen (clinical drug ingredient) Drug/Non Drug Allergy do cumented on EMR Reaction Allergy Type Onset Date Status amoxicillin Amoxicillin(NDC Code:[address]-87) Anaphylaxis Drug Bryon rgy Active oseltamivir Tamiflu(NDC Code:[address]-84) Rash Drug Allergy 1 10/04/2018 Active minocycline Minocycline HCl(ND Code:[address]-90) Anaphylaxis Drug Allergy Active nitrofurantoin, macrocrystals / nitrofurantoin, monohy drate Macrobid([facility] Code:[address]-01) Anaphylaxis Drug Allergy Active ENCOUNTERS from 1990 to 2021-05-31 Encounter Location Date Provider Diagnosis [facility] [place] [address] [place] [address] May, 2021 Omaira Pimentel IMMUNIZATIONS Vaccine Route Administration Date Status Depo-Medrol 80mg Methylprednisolone Acetate IM Intramuscular Aug 09, 2019 Administered SOCIAL HISTORY Tobacco Use: Social History Observation Description Date Details (start date - stop date) Never Smoker Sex Assigned At : Social History Observation Description Sex Assigned At Unknown Education: Question Answer Notes Level of Education: College Associates degree Audit Question Answer Notes Total Score: 0 Interpretation: Alcohol Education Language: Question Answer Notes Languages spoken: Armenian Buddhism: Question Answer Notes Buddhism 33 None Drug and Alcohol Question Answer Notes Total Score: 0 Interpretation: No problems reported Alcohol Screening: Question Answer Notes Did you have a drink containing alcohol in the past year? Ye s Points 2 Interpretation Negative How often did you have six or more drinks on one occas ion in the past year? Never (0 points) How many drinks did you have on a typica l day when you were drinking in the past year? 1 or 2 (0 points) How often did you have a drink containing alcohol in t he past year? Two to four times a month (2 points) Tobacco Use: Question Answer Notes Are you a: never smoker REASON FOR REFERRAL No Information VITAL SIGNS No information MEDICATIONS Medication SIG (Take, Route, Frequency, Duration) Notes Start Da te End Date Status Multi Complete Active Singulair 10 MG 1 tablet Orally Once a day for 90 Active Sertraline HCl 50 MG 1 tablet Orally Once a day for 30 Active Magnesium 300 MG 1 tablet Orally Once a day for 30 day(s) Jun, Not-Taking Ferrous Sulfate 325 (65 Fe) MG 1 tablet Orally Once a day for 30 day(s) Nov, Not-Taking Cholecalciferol 50 MCG (2000 UT) 1 tablet Orally Once a day for 30 day(s) Nov, Active Flonase Allergy Relief 50 MCG/ACT 1 spray in each nost ril Nasally Once a day for 30 day(s) Nov, Active Plavix 75 MG 1 tablet Orally Once a day Active Fexofenadine HCl 180 MG 1 tab Orally Once a day for 30 day(s) January, Active Polysaccharide Iron Complex 150 MG 1 capsule Orally Once a day for 30 Active PROCEDURES No Information RESULTS No Results REASON FOR VISIT refill MEDICAL (GENERAL) HISTORY Type Description Date Medical History Brain aneurysm, Neuro - Fine annually Medical History Loss of vision R eye, assoc with clots i n carotid a. Medical History HTN Surgical History Brain aneurysm coiled 2006 Surgical History R side Carotid stents placed, January and ag ain in April 2009 Surgical History X2 Surgical History Tubal ligation 05/2018 Surgical History Sinus surgery Dr Chiu 11/14/2019 Surgical History RALH, OBS, cystectomy 08/24/2020 Surgical History hysterectomy 08/25/2020 Hospitalization History brain aneurysm 2006 Hospitalization History R carotid stents x 2 2008 Hospitalization History c section/tubal ligation 2016 & 2017 Hospitalization History TIA - headache, L eye vision changes 09/2019 Goals Section No Information Health Concerns No Information MEDICAL EQUIPMENT No Information MENTAL STATUS No Information FUNCTIONAL STATUS No Information ASSESSMENTS No Information PLAN OF TREATMENT Medication Medication Name Sig Start Date Stop Date Singulair 10 MG 1 tablet Orally Once a day for 90 Polysaccharide Iron Complex 150 MG 1 capsule Orally Once a day f or 30 Sertraline HCl 50 MG 1 tablet Orally Once a day for 30 Insurance Providers Payer Name Payer Address Payer Phone Insured Name Patient Relati onship to Insured Coverage Start Date Coverage End Date MVP [address] [place] [id number] ENMANUEL GAMBLE self
--- OUTSIDE RECORDS SUMMARY | 2021-08-23 10:55 | CCD | Continuity of Care Document ---
Author Jennifer Jiang PA-C Organization Unknown Address [address], [address] [place] [address] Phone [phone] Care Team Providers Care Supervisor Welding Equipment Repairer Name Role Phone Omaira Bennett R.P.A. AUTM [phone] Problems Description No Information Available Social History [...] 50mcg/Act Suspension 2 sprays each nares 9.900ml Jhon Chiu MD Ferrex 150 150mg Capsules zo [...] lb BMI (Body Mass Index) 31.4 kg/m2 [place] Body Weight 120 lb Weight 83.009 kg BSA (Body Surface Area) 1.88 m2 05/14/2021 9:18am BP Systolic 131 mmHg BP Diastolic 91 mmHg Height 64 inches 5'4" Weight 174.00 lb BMI (Body Mass Index) 29.9 kg/m2 [place] Body Weight 120 lb Weight 78.926 kg BSA (Body Surface Area) 1.84 m2 Results Test Acquired Date Facility Test Result H/L Range Note Laboratory test finding 05/14/2021 [facility] Main Lab [address] [place], [place] [id number] [phone] Tissue Transglutaminase IgA <2 U/mL Normal 0-3 1 Immunoglobulin A 287.0 mg/dL Normal 70-400 2 Antinuclear Antibodies 05/14/2021 [facility] Main Lab [address] [place] [phone] Antinuclear Antibodies Direct Positive Abnormal Ne gative Anti Double Strand-Dna AB 10 IU/mL High 0-9 3 BUSINESS FUNCTIONAL ANALYST Antibodies 0.2 AI Normal 0.0-0.9 Ramos Antibodies <0.2 AI Normal 0.0-0.9 Sjogren's Anti SS-A <0.2 AI Normal 0.0-0.9 Sjogren's Anti SS-B <0.2 AI Normal 0.0-0.9 [place] Comment (SEE NOTE) Normal . 4 Laboratory test finding 05/14/2021 [facility] Main Lab [address] [place] [phone] Anti-Mitochondrial Antibody <20.0 units Normal 0.0 -20.0 5 Anti-Neutrophil Cytoplasmic AB 05/14/2021 [facility] Main Lab [address] [place] [address] [phone] Cytoplasmic Neutrop AB Anca-C <1:20 titer Normal N eg:<1:20 Perinuclear AB Anca-P <1:20 titer Normal Neg:<1:20 6 Anca-Atypical <1:20 titer Normal Neg:<1:20 7 Total Iron Binding Capacit 05/14/2021 [facility] Main Lab [address] [place] [phone] Iron (Fe) 151 g/dL Normal 50-170 Total Iron Binding Capacity 349 g/dL Normal 250-450 Percent Saturation 43.3 % Normal 13.2-45.0 Laboratory test finding 05/14/2021 [facility] Main Lab [address] [place] [phone] Ceruloplasmin 25.5 mg/dL Normal 19.0-39.0 8 Hepatitis Profile 05/14/2021 [facility] Main Lab [address] [place] [phone] Hepatitis C Virus Shalini Index < 0.0 INDEX Normal <0. 8 Hepatitis B Surface Antigen NEGATIVE Normal Negative Hepatitis B Core Antibody Igm NEGATIVE Normal Negative Hepatitis A Antibody Igm NEGATIVE Normal Negative Liver Profile 05/14/2021 [facility] Main Lab [address] [place] [address]207 [phone] Ast/Sgot 13 U/L Normal 7-37 Alt/SGPT 28 [...] 99% specificity for gluten sensitive enteropathy. 2 note:<nlbl:[facility] ed> 3 Negative <5 Equivocal 5 [...] (anti-Ramos) SLE 15 - 30% ------- --------- BUSINESS FUNCTIONAL ANALYST Mixed Connective Tissue Disease 95% (U1 nRNP, [...] up testing of positive sera with both ME- 3 and MPO-ANCA enzyme immunoassays. As m any as 5% serum samples are positive only by EIA. Ref. AM J Clin Pathol 1999;111:507-513. 7 The atypical pANCA pattern h as been observed in a significant percentage of patients with ulcerative colitis, primary sclerosing cholangitis and autoimmune hepatitis. 8 Performed at: [facility] [employer] [id number] Metal Mold Dresser: Sarahy Muniz MD, Phone: [phone] Performed at: RN - [facility] [address] [id number] Metal Mold Dresser: Deneen Irene MD, Phone: [phone] Procedures Date Code Description Status 05/14/2021 565[address] Office/Outpatient New Moderate M DM 45-59 Minutes Completed Medical Devices Description No Information Available Encounters Type Date Location Provider Dx Diagnosis Office Visit 05/14/2021 9:00a [facility] Ronny Batista MD R16.0 Hepatomegaly, not elsewhere classified D50.9 Iron deficiency anemia, unsp ecified Assessments Date Code Description Provider 05/14/2021 R16.0 Hepatomegaly, not elsewhere clas sified Ronny Batista MD 05/14/2021 D50.9 Iron deficiency anemia, unspecif ied Ronny Batista MD Plan of Treatment Future Appointment(s):* 08/23/2021 10:00 am - Ronny Batista MD at [facility] Functional Status Description No Information Available Mental Status Description No Information Available Referrals Refer to Dr Reason for Referral Status Appt Ronny Doty M.D. HEPATOMEGALY Scheduled 06/13/2021 [facility], Gastroenterology [address], [address] [place] [address] [phone]
--- OUTSIDE RECORDS SUMMARY | 2021-08-23 10:56 | CCD ---
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 Name Role Phone OSMANI HUFFMAN MD Unavailable Unavailable OSMANI HUFFMAN MD Unavailable Unavailable OSMANI HUFFMAN MD Unavailable Unavailable REINDL, OSMANI VICTORIA Unavailable Unavailable REINDL, OSMANI VICTORIA Unavailable Unavailable REINDL, OSMANI VICTORIA Unavailable Unavailable REINDL, OSMANI VICTORIA Unavailable Unavailable REINDL, OSMANI VICTORIA Unavailable Unavailable REINDL, OSMANI VICTORIA Unavailable Unavailable REINDL, OSMANI VICTORIA Unavailable Unavailable REINDL, OSMANI VICTORIA Unavailable Unavailable REINDL, OSMANI VICTORIA Unavailable Unavailable REINDL, OSMANI VICTORIA Unavailable Unavailable REINDL, OSMANI VICTORIA Unavailable Unavailable REINDL, OSMANI VICTORIA Unavailable Unavailable REINDL, OSMANI VICTORIA Unavailable Unavailable REINDL, OSMANI VICTORIA Unavailable Unavailable REINDL, OSMANI VICTORIA Unavailable Unavailable REINDL, OSMANI VICTORIA Unavailable Unavailable REINDL, OSMANI VICTORIA Unavailable Unavailable REINDL, OSMANI VICTORIA Unavailable Unavailable REINDL, OSMANI VICTORIA Unavailable Unavailable REINDL, OSMANI VICTORIA Unavailable Unavailable REINDL, OSMANI VICTORIA Unavailable Unavailable REINDL, OSMANI VICTORIA Unavailable Unavailable REINDL, OSMANI VICTORIA Unavailable Unavailable REINDL, OSMANI VICTORIA Unavailable Unavailable REINDL, OSMANI VICTORIA Unavailable Unavailable REINDL, OSMANI VICTORIA Unavailable Unavailable REINDL, OSMANI VICTORIA Unavailable Unavailable REINDL, OSMANI VICTORIA Unavailable Unavailable REINDL, OSMANI VICTORIA Unavailable Unavailable REINDL, OSMANI VICTORIA Unavailable Unavailable REINDL, OSMANI VICTORIA Unavailable Unavailable REINDL, OSMANI VICTORIA Unavailable Unavailable REINDL, OSMANI VICTORIA Unavailable Unavailable REINDL, OSMANI VICTORIA Unavailable Unavailable REINDL, OSMANI VICTORIA Unavailable Unavailable REINDL, OSMANI VICTORIA Unavailable Unavailable REINDL, OSMANI VICTORIA Unavailable Unavailable REINDL, OSMANI VICTORIA Unavailable Unavailable REINDL, OSMANI VICTORIA Unavailable Unavailable Abriss, Gonsalo Lopez MD Unavailable Unavailable Abriss, Gonsalo Lopez MD Unavailable Unavailable Abriss, Gonsalo Lopez MD Unavailable Unavailable Abriss, Gonsalo Lopez MD Unavailable Unavailable Abriss, Gonsalo Lopez MD Unavailable Unavailable Abriss, Gonsalo Lopez MD Unavailable Unavailable Abriss, Gonsalo Lopez MD Unavailable Unavailable Abriss, Gonsalo Lopez MD Unavailable Unavailable Abriss, Gonsalo Lopez MD Unavailable Unavailable Abriss, Gonsalo Lopez MD Unavailable Unavailable Abriss, Gonsalo Lopez MD Unavailable Unavailable Abriss, Gonsalo Lopez MD Unavailable Unavailable Abriss, Gonsalo Lopez MD Unavailable Unavailable Abriss, Gonsalo Lpoez MD Unavailable Unavailable Abriss, Gonsalo Lopez MD Unavailable Unavailable Abriss, Gonsalo Lopez MD Unavailable Unavailable Abriss, Gonsalo Lopez MD Unavailable Unavailable Abriss, Gonsalo Lopez MD Unavailable Unavailable Abriss, Gonsalo Lopez MD Unavailable Unavailable LAROCK, J DEANDRE MAINFRAME CONSULTANT Unavailable Unavailable LAROCK, J DEANDRE MAINFRAME CONSULTANT Unavailable Unavailable LAROCK, J DEANDRE MAINFRAME CONSULTANT Unavailable Unavailable LAROCK, J DEANDRE MAINFRAME CONSULTANT Unavailable Unavailable LAROCK, J DEANDRE MAINFRAME CONSULTANT Unavailable Unavailable LAROCK, J DEANDRE MAINFRAME CONSULTANT Unavailable Unavailable LAROCK, J DEANDRE MAINFRAME CONSULTANT Unavailable Unavailable LAROCK, J DEANDRE MAINFRAME CONSULTANT Unavailable Unavailable LAROCK, J DEANDRE MAINFRAME CONSULTANT Unavailable Unavailable LAROCK, J DEANDRE MAINFRAME CONSULTANT Unavailable Unavailable LAROCK, Sia CARRERA MAINFRAME CONSULTANT Unavailable Unavailable LAROCK, Sia CARRERA MAINFRAME CONSULTANT Unavailable Unavailable LAROCK, Sia CARRERA MAINFRAME CONSULTANT Unavailable Unavailable LAROCK, Sia CARRERA MAINFRAME CONSULTANT Unavailable Unavailable LAROCK, Sia CARRERA MAINFRAME CONSULTANT Unavailable Unavailable LAROCK, Sia CARRERA MAINFRAME CONSULTANT Unavailable Unavailable LAROCK, Sia CARRERA MAINFRAME CONSULTANT Unavailable Unavailable LAROCK, Sia CARRERA MAINFRAME CONSULTANT Unavailable Unavailable LAROCK, Sia CARRERA MAINFRAME CONSULTANT Unavailable Unavailable LAROCK, Sia CARRERA MAINFRAME CONSULTANT Unavailable Unavailable LAROCK, Sia CARRERA MAINFRAME CONSULTANT Unavailable Unavailable LAROCK, Sia CARRERA MAINFRAME CONSULTANT Unavailable Unavailable Demarche, J Kalyan PA Unavailable Unavailable Demarche, J Kalyan PA Unavailable Unavailable Demarche, J Kalyan PA Unavailable Unavailable Demarche, J Kalyan PA Unavailable Unavailable Demarche, J Kalyan PA Unavailable Unavailable Demarche, J Kalyan PA Unavailable Unavailable Demarche, J Kalyan PA Unavailable Unavailable Demarche, J Kalyan PA Unavailable Unavailable Demarche, J Kalyan PA Unavailable Unavailable Demarche, J Kalyan PA Unavailable Unavailable Demarche, J Kalyan PA Unavailable Unavailable Demarche, J Kalyan PA Unavailable Unavailable Demarche, J Kalyan PA Unavailable Unavailable Demarche, J Kalyan PA Unavailable Unavailable Demarche, J Kalyan PA Unavailable Unavailable Demarche, J Kalyan PA Unavailable Unavailable Demarche, J Kalyan PA Unavailable Unavailable Demarche, J Kalyan PA Unavailable Unavailable Demarche, J Kalyan PA Unavailable Unavailable Demarche, J Kalyan PA Unavailable Unavailable Demarche, J Kalyan PA Unavailable Unavailable Demarche, J Kalyan PA Unavailable Unavailable Demarche, J Kalyan PA Unavailable Unavailable Demarche, J Kalyan PA Unavailable Unavailable Demarche, J Aklyan PA Unavailable Unavailable Demarche, J Kalyan PA Unavailable Unavailable Demarche, J Kalyan PA Unavailable Unavailable Demarche, J Kalyan PA Unavailable Unavailable Demarche, J Kalyan PA Unavailable Unavailable Demarche, J Kalyan PA Unavailable Unavailable Demarche, J Kalyan PA Unavailable Unavailable SULMA, TAMEKA PA Unavailable Unavailable SULMA, TAMEKA PA Unavailable Unavailable SULMA, TAMEKA PA Unavailable Unavailable SULMA, TAMEKA PA Unavailable Unavailable SULMA, TAMEKA PA Unavailable Unavailable SULMA, TAMEKA PA Unavailable Unavailable SULMA, TAMEKA PA Unavailable Unavailable SULMA, TAMEKA PA Unavailable Unavailable SULMA, TAMEKA PA Unavailable Unavailable SULMA, TAMEKA PA Unavailable Unavailable SULMA, TAMEKA PA Unavailable Unavailable SULMA, TAMEKA PA Unavailable Unavailable SULMA, TAMEKA PA Unavailable Unavailable SULMA, TAMEKA PA Unavailable Unavailable SULMA, TAMEKA PA Unavailable Unavailable SULMA, TAMEKA PA Unavailable Unavailable SULMA, TAMEKA PA Unavailable Unavailable SULMA, TAMEKA PA Unavailable Unavailable SULMA, TAMEKA PA Unavailable Unavailable SULMA, TAMEKA PA Unavailable Unavailable SULMA, TAMEKA PA Unavailable Unavailable SULMA, TAMEKA PA Unavailable Unavailable SULMA, TAMEKA PA Unavailable Unavailable SULMA, TAMEAK PA Unavailable Unavailable SULMA, TAMEKA PA Unavailable Unavailable SULMA, TAMEKA PA Unavailable Unavailable SULMA, TAMEKA PA Unavailable Unavailable SULMA, TAMEKA PA Unavailable Unavailable SULMA, TAMEKA PA Unavailable Unavailable SULMA, TAMEKA PA Unavailable Unavailable SULMA, TAMEKA PA Unavailable Unavailable SULMA, TAMEKA PA Unavailable Unavailable SULMA, TAMEKA PA Unavailable Unavailable SULMA, TAMEKA PA Unavailable Unavailable SULMA, TAMEKA PA Unavailable Unavailable SULMA, TAMEKA PA Unavailable Unavailable Loveless, A Val MAINFRAME CONSULTANT Unavailable Unavailable Loveless, A Val MAINFRAME CONSULTANT Unavailable Unavailable Loveless, A Val MAINFRAME CONSULTANT Unavailable Unavailable Loveless, A Val MAINFRAME CONSULTANT Unavailable Unavailable Loveless, A Val MAINFRAME CONSULTANT Unavailable Unavailable Loveless, A Val MAINFRAME CONSULTANT Unavailable Unavailable Loveless, A Val MAINFRAME CONSULTANT Unavailable Unavailable Loveless, A Val MAINFRAME CONSULTANT Unavailable Unavailable Loveless, A Val MAINFRAME CONSULTANT Unavailable Unavailable Loveless, A Val MAINFRAME CONSULTANT Unavailable Unavailable Loveless, A Val MAINFRAME CONSULTANT Unavailable Unavailable Loveless, A Val MAINFRAME CONSULTANT Unavailable Unavailable Loveless, A Val MAINFRAME CONSULTANT Unavailable Unavailable Loveless, A Val MAINFRAME CONSULTANT Unavailable Unavailable Loveless, A Val MAINFRAME CONSULTANT Unavailable Unavailable Loveless, A Val MAINFRAME CONSULTANT Unavailable Unavailable Loveless, A Val MAINFRAME CONSULTANT Unavailable Unavailable Loveless, A Val MAINFRAME CONSULTANT Unavailable Unavailable Loveless, A Val MAINFRAME CONSULTANT Unavailable Unavailable Loveless, A Val MAINFRAME CONSULTANT Unavailable Unavailable Loveless, A Val MAINFRAME CONSULTANT Unavailable Unavailable Loveless, A Val MAINFRAME CONSULTANT Unavailable Unavailable Loveless, A Val MAINFRAME CONSULTANT Unavailable Unavailable Loveless, A Val MAINFRAME CONSULTANT Unavailable Unavailable Loveless, A Val MAINFRAME CONSULTANT Unavailable Unavailable Loveless, A Val MAINFRAME CONSULTANT Unavailable Unavailable Loveless, A Val MAINFRAME CONSULTANT Unavailable Unavailable Loveless, A Val MAINFRAME CONSULTANT Unavailable Unavailable Loveless, A Val MAINFRAME CONSULTANT Unavailable Unavailable Loveless, A Val MAINFRAME CONSULTANT Unavailable Unavailable Loveless, A Val MAINFRAME CONSULTANT Unavailable Unavailable Re-disclosure Warning The records that you are about to access may contain information from federally-assisted alcohol or drug abuse programs. If such information is present, then the following federally mandated warning applies: This information has been disclosed to you from records protected by federal confidentiality rules (42 CFR part 2). The federal rules prohibit you from making any further disclosure of this information unless further disclosure is expressly permitted by the written consent of the person to whom it pertains or as otherwise permitted by 42 CFR part 2. A general authorization for the release of medical or other information is NOT sufficient for this purpose. The Federal rules restrict any use of the information to criminally investigate or prosecute any alcohol or drug abuse patient.The records that you are about to access may contain highly sensitive health information, the redisclosure of which is protected by Article 27-F of the [facility] Public Health law. If you continue you may have access to information: Regarding HIV / AIDS; Provided by facilities licensed or operated by the [facility] Office of Mental Health; or Provided by the [facility] Office for People With Developmental Disabilities. If such information is present, then the following [facility] mandated warning applies: This information has been disclosed to you from confidential records which are protected by state law. State law prohibits you from making any further disclosure of this information without the specific written consent of the person to whom it pertains, or as otherwise permitted by law. Any unauthorized further disclosure in violation of state law may result in a fine or mcc sentence or both. A general authorization for the release of medical or other information is NOT sufficient authorization for further disc losure. Allergies and Adverse Reactions Type Description Substance Reaction Status Data Source(s ) Propensity to adverse reactions ASPIRIN Aspirin [facility] Family History Family Member Name Family Member Gender Family Member Status Date o f Status Description Data Source(s) Unknown Unknown Problem [facility] Encounters Encounter Providers Location Date Indications Data Source(s ) Unknown [address] [facility] [address] 08/21/2021 12:00:00 AM EST eCW1 ([facility]) Outpatient Attender: Kalyan Zapata/Silvia/Maynor/Gurpreet ndl 08/07/2021 01:45:00 PM EST MEDENT ([facility]) Outpatient Attender: TAMEKA uribe 07/17/2021 09:20:00 AM EDT MEDENT ([facility]) Outpatient Attender: DEANDRE MARROQUIN NP 11/2020 05:14:02 PM EDT - 06/23/2021 05:51:06 PM EDT DocuTap ([facility] ) Unknown [address] [facility], [facility] [id number] 05/31/2021 12:00:00 AM EDT eCW1 ([facility]) Outpatient Attender: OSMANI Zapata/Silvia/Maynor/Linda rivas 05/14/2021 09:00:00 AM EDT MEDENT ([facility]) Outpatient [address] [facility] [id number] 03/01/2021 12:00:00 AM EDT eCW1 ([facility]) Unknown [address] [facility] [id number] 02/27/2021 12:00:00 AM EDT [facility]CW1 [facility]) Outpatient [address] [facility] [id number] 02/13/2021 12:00:00 AM EDT eCW1 ([facility]) TeleMedicine Phone E/M by Phys 11-20 Min [address] [place] [address] 01/25/2021 12:00:00 AM EDT eCW1 ([facility]) Unknown [address] [facility] [id number] 01/22/2021 12:00:00 AM EDT eCW1 ([facility]) Unknown [address] [facility] [id number] 01/10/2021 12:00:00 AM EDT eCW1 ([facility]) Outpatient [address] [facility] [id number] 01/08/2021 12:00:00 AM EDT eCW1 ([facility]) [place] [address] [facility] [address] 12/18/2020 12:00:00 AM EDT eCW1 ([facility]) [place] [address] [facility] [address] 12/03/2020 12:00:00 AM EDT [facility]CW1 [facility]) [place] [address] [facility] [address] 11/29/2020 12:00:00 AM EST eCW1 ([facility] [place] [address] [facility] [address] 11/29/2020 12:00:00 AM EST [facility]CW1 [facility]) [place] [address] [facility] [address] 10/12/2020 12:00:00 AM EST eCW1 ([facility]) [place] [address] [facility] [address] 10/05/2020 12:00:00 AM EST eCW1 ([facility]) Outpatient Attender: Val Sam NP 10/01/2020 12:0 0:00 AM [facility] Outpatient Attender: Val Sam NP [id number] 09/25/2020 12:00:00 AM EST - 09/25/2020 04:21:16 PM EST Transient cerebral ischemic attack, unsp ecified [facility] Transient cerebral ischemic attack, unsp ecified [place]op visit [address] [facility] [address] 09/06/2020 12:00:00 AM EST eCW1 ([facility]) Outpatient 09/01/2020 12:00:00 AM [facility] [place]patient [address] [facility] [address] 08/06/2020 12:00:00 AM EST eCW1 ([facility]) [place] [address] [facility] [address] 08/03/2020 12:00:00 AM EST eCW1 ([facility]) [place] [address] [facility] [address] 08/03/2020 12:00:00 AM EST eCW1 ([facility]) [place] [address] [facility] [address] 07/18/2020 12:00:00 AM EDT eCW1 ([facility]) [place] [address] [facility] [address] 07/17/2020 12:00:00 AM EDT eCW1 ([facility]) [place] [address] [facility] [address] 07/09/2020 12:00:00 AM EDT eCW1 ([facility]) Outpatient Attender: John Zapata/Silvia/Maynor/Arabella kurtzl 07/03/2020 01:00:00 PM EDT MEDENT ([facility], ) Immunizations Vaccine Date Status Description Data Source(s) COVID-19 VACCINE Pfizer 03/13/2021 12:00:00 AM EDT completed [facility] Vaccine Series Complete: YESThis Data wa s Submitted to [facility] Via [employer]. COVID-19 VACCINE Pfizer 02/20/2021 12:00:00 AM EDT completed [facility] Vaccine Series Complete: NOThis Data was Submitted to [facility] Via [employer]. Medications Medication Brand Name Start Date Product Form Dose Route Admi nistrative Instructions Pharmacy Instructions Status Indications Reaction Description Data Source(s) Azithromycin 250 MG Oral Tablet AZITHROMYCIN 08/07/2021 12:00:00 AM EST tablet 6 TAKE TWO TABLETS BY MOUTH AT ONCE ON THE FIRST DAY THEN TAKE ONE DAILY THEREAFTER TAKE TWO TABLETS BY MOUTH AT ONCE ON THE FIRST DAY THEN TAKE ONE DAILY THEREAFTER SOLD: 08/07/2021 [facility] Azithromycin 250 MG Oral Tablet Azithromycin 08/07/2021 12:00:00 AM EST active MEDENT ([facility]) Ondansetron 8 MG Disintegrating Oral Tablet Ondansetron 07/17/2021 12:00:00 AM EDT active MEDENT ([facility]) 8 mg 07/17/2021 12:00:00 AM EDT tablet,disintegrating 1 0 DISSOLVE ONE TABLET IN MOUTH EVERY 8 HOURS NEEDED FOR NAUSEA OR VOMITING DISSOLVE ONE TABLET IN MOUTH EVERY 8 HOURS NEEDED FOR NAUSEA OR VOMITING SOLD: 07/17/2021 [facility] 50 mg 07/08/2021 12:00:00 AM EDT tablet 30 TAKE ONE TABLET BY MOUTH EVERY DAY TAKE ONE TABLET BY MOUTH EVERY DAY SOLD: 07/09/2021 [facility] 50 mg 07/08/2021 12:00:00 AM EDT tablet 30 TAKE ONE TABLET BY MOUTH EVERY DAY TAKE ONE TABLET BY MOUTH EVERY DAY SOLD: 08/16/2021 [facility] 150 mg iron 06/01/2021 12:00:00 AM EDT capsule 30 TAKE ONE CAPSULE BY MOUTH EVERY DAY TAKE ONE CAPSULE BY MOUTH EVERY DAY SOLD: 06/03/2021 [facility] 150 mg iron 06/01/2021 12:00:00 AM EDT capsule 30 TAKE ONE CAPSULE BY MOUTH EVERY DAY TAKE ONE CAPSULE BY MOUTH EVERY DAY SOLD: 07/09/2021 [facility] MAGNESIUM CITRATE 05/14/2021 12:00:00 AM EDT solution 296 TAKE 1 10 OZ BOTTLE FOR ADDITIONAL PREP 2-3 DAYS BEFORE PROCEDURE TAKE 1 10 OZ BOTTLE FOR ADDITIONAL PREP 2-3 DAYS BEFORE PROCEDURE SOLD: 05/20/2021 [facility] POLYETHYLENE GLYCOL 3350 142 MG/ML Oral Solution [Miralax] M iralax 05/14/2021 12:00:00 AM EDT completed MEDENT ([facility], ) magnesium citrate 58.2 MG/ML Oral Solution Magnesium Citrate 05/14/2021 12:00:00 AM EDT completed MEDENT ([facility], ) 17 gram/dose 05/14/2021 12:00:00 AM EDT powder [address] INSTRUCTIONS USE DIRECTED PER DR INSTRUCTIONS SOLD: 05/20/2021 [facility] 50 mg 04/10/2021 12:00:00 AM EDT tablet 30 TAKE ONE TABLET BY MOUTH EVERY DAY TAKE ONE TABLET BY MOUTH EVERY DAY SOLD: 05/10/2021 [facility] 50 mg 04/10/2021 12:00:00 AM EDT tablet 30 TAKE ONE TABLET BY MOUTH EVERY DAY TAKE ONE TABLET BY MOUTH EVERY DAY SOLD: 04/11/2021 [facility] 50 mg 04/10/2021 12:00:00 AM EDT tablet 30 TAKE ONE TABLET BY MOUTH EVERY DAY TAKE ONE TABLET BY MOUTH EVERY DAY SOLD: 06/10/2021 [facility] 150 mg iron 03/26/2021 12:00:00 AM EDT capsule 30 TAKE ONE CAPSULE BY MOUTH EVERY DAY TAKE ONE CAPSULE BY MOUTH EVERY DAY SOLD: 03/29/2021 [facility] 150 mg iron 03/26/2021 12:00:00 AM EDT capsule 30 TAKE ONE CAPSULE BY MOUTH EVERY DAY TAKE ONE CAPSULE BY MOUTH EVERY DAY SOLD: 05/03/2021 [facility] 50 mg 01/29/2021 12:00:00 AM EDT tablet 30 TAKE ONE TABLET BY MOUTH EVERY DAY TAKE ONE TABLET BY MOUTH EVERY DAY SOLD: 01/30/2021 [facility] 50 mg 01/29/2021 12:00:00 AM EDT tablet 30 TAKE ONE TABLET BY MOUTH EVERY DAY TAKE ONE TABLET BY MOUTH EVERY DAY SOLD: 03/01/2021 [facility] tizanidine 4 MG Oral Tablet TIZANIDINE HCL 01/14/2021 12:00:00 AM EDT tablet 20 TAKE ONE TABLET BY MOUTH EVERY 6-8 HOURS NEEDED CARMEN E ONE TABLET BY MOUTH EVERY 6-8 HOURS NEEDED SOLD: 01/14/2021 [facility] 500 mg 01/14/2021 12:00:00 AM EDT tablet 20 TAKE ONE TABLET BY MOUTH TWO TIMES A DAY NEEDED TAKE ONE TABLET BY MOUTH TWO TIMES A DAY NEEDED ELKIN [facility] Methylprednisolone Sodium Succinate To 125 MG 01/14/2021 1 2:00:00 AM EDT completed MEDENT ([facility], [facility]) Medication administered onsite Polysaccharide iron complex 150 MG Oral Capsule Polysaccharide Iron Complex 150 MG Polysaccharide Iron Complex 150 MG 12/18/2020 12:00:00 AM EDT 1.0 {capsule} active Polysaccharide Iron Comp cruz 150 MG eCW1 ([facility]) Polysaccharide iron complex 150 MG Oral Capsule Polysaccharide Iron Complex 150 MG Polysaccharide Iron Complex 150 MG 12/18/2020 12:00:00 AM EDT 1.0 {capsule} active Polysaccharide Iron Comp cruz 150 MG eCW1 ([facility]) Polysaccharide iron complex 150 MG Oral Capsule Polysaccharide Iron Complex 150 MG Polysaccharide Iron Complex 150 MG 12/18/2020 12:00:00 AM EDT 1.0 {capsule} active Polysaccharide Iron Comp cruz 150 MG eCW1 ([facility]) Polysaccharide iron complex 150 MG Oral Capsule Polysaccharide Iron Complex 150 MG Polysaccharide Iron Complex 150 MG 12/18/2020 12:00:00 AM EDT 1.0 {capsule} active Polysaccharide Iron Comp cruz 150 MG eCW1 ([facility]) Polysaccharide iron complex 150 MG Oral Capsule Polysaccharide Iron Complex 150 MG Polysaccharide Iron Complex 150 MG 12/18/2020 12:00:00 AM EDT 1.0 {capsule} active Polysaccharide Iron Comp cruz 150 MG eCW1 ([facility]) 150 mg iron 12/18/2020 12:00:00 AM EDT capsule 30 TAKE ONE CAPSULE BY MOUTH EVERY DAY TAKE ONE CAPSULE BY MOUTH EVERY DAY SOLD: 02/15/2021 [facility] Polysaccharide iron complex 150 MG Oral Capsule Polysaccharide Iron Complex 150 MG Polysaccharide Iron Complex 150 MG 12/18/2020 12:00:00 AM EDT 1.0 {capsule} active Polysaccharide Iron Comp cruz 150 MG eCW1 ([facility]) Polysaccharide iron complex 150 MG Oral Capsule Polysaccharide Iron Complex 150 MG Polysaccharide Iron Complex 150 MG 12/18/2020 12:00:00 AM EDT 1.0 {capsule} active Polysaccharide Iron Comp cruz 150 MG eCW1 ([facility]) Polysaccharide iron complex 150 MG Oral Capsule Polysaccharide Iron Complex 150 MG Polysaccharide Iron Complex 150 MG 12/18/2020 12:00:00 AM EDT 1.0 {capsule} active Polysaccharide Iron Comp cruz 150 MG eCW1 ([facility]) 150 mg iron 12/18/2020 12:00:00 AM EDT capsule 30 TAKE ONE CAPSULE BY MOUTH EVERY DAY TAKE ONE CAPSULE BY MOUTH EVERY DAY SOLD: 12/18/2020 [facility] 150 mg iron 12/18/2020 12:00:00 AM EDT capsule 30 TAKE ONE CAPSULE BY MOUTH EVERY DAY TAKE ONE CAPSULE BY MOUTH EVERY DAY SOLD: 01/16/2021 [facility] ferrous sulfate 325 MG Oral Tablet Ferrous Sulfate 325 (65 Fe) MG Ferrous Sulfate 325 (65 Fe) MG 12/03/2020 12:00:00 AM EDT 1.0 {tablet} suspended Ferrous Sulfate 325 (65 Fe) MG e CW1 ([facility]) ferrous sulfate 325 MG Oral Tablet Ferrous Sulfate 325 (65 Fe) MG Ferrous Sulfate 325 (65 Fe) MG 12/03/2020 12:00:00 AM EDT 1.0 {tablet} suspended Ferrous Sulfate 325 (65 Fe) MG e 1 ([facility]) Cholecalciferol 50 MCG (1999 [place]) UNK 12/03/2020 12:00:00 AM ED T 1.0 {tablet} active Cholecalciferol 50 M CG (1999) eCW1 ([facility]) ferrous sulfate 325 MG Oral Tablet Ferrous Sulfate 325 (65 Fe) MG Ferrous Sulfate 325 (65 Fe) MG 12/03/2020 12:00:00 AM EDT 1.0 {tablet} suspended Ferrous Sulfate 325 (65 Fe) MG e [facility] ([facility]) Cholecalciferol 50 MCG (1999) UNK 12/03/2020 12:00:00 AM ED T 1.0 {tablet} active Cholecalciferol 50 M CG (1999) [facility] ([facility]) ferrous sulfate 325 MG Oral Tablet Ferrous Sulfate 325 (65 Fe) MG Ferrous Sulfate 325 (65 Fe) MG 12/03/2020 12:00:00 AM EDT 1.0 {tablet} suspended Ferrous Sulfate 325 (65 Fe) MG e [facility] ([facility]) Cholecalciferol 50 MCG (1999 [place]) UNK 12/03/2020 12:00:00 AM ED T 1.0 {tablet} active Cholecalciferol 50 M CG (1999) eCW1 ([facility]) ferrous sulfate 325 MG Oral Tablet Ferrous Sulfate 325 (65 Fe) MG Ferrous Sulfate 325 (65 Fe) MG 12/03/2020 12:00:00 AM EDT 1.0 {tablet} active Ferrous Sulfate 325 (65 Fe) MG eCW1 ([facility]) ferrous sulfate 325 MG Oral Tablet Ferrous Sulfate 325 (65 Fe) MG Ferrous Sulfate 325 (65 Fe) MG 12/03/2020 12:00:00 AM EDT 1.0 {tablet} suspended Ferrous Sulfate 325 (65 Fe) MG e 1 ([facility]) Cholecalciferol 50 MCG (1999 UT) UNK 12/03/2020 12:00:00 AM ED T 1.0 {tablet} active Cholecalciferol 50 M CG (1999) W1 ([facility]) Cholecalciferol 50 MCG (1999 UT) UNK 12/03/2020 12:00:00 AM ED T 1.0 {tablet} active Cholecalciferol 50 M CG (1999) [facility] ([facility]) Cholecalciferol 50 MCG (1999 UT) UNK 12/03/2020 12:00:00 AM ED T 1.0 {tablet} active Cholecalciferol 50 M CG (1999 UT) [facility] ([facility]) ferrous sulfate 325 MG Oral Tablet Ferrous Sulfate 325 (65 Fe) MG Ferrous Sulfate 325 (65 Fe) MG 12/03/2020 12:00:00 AM EDT 1.0 {tablet} suspended Ferrous Sulfate 325 (65 Fe) MG e [facility] ([facility]) Cholecalciferol 50 MCG (1999 UT) UNK 12/03/2020 12:00:00 AM ED T 1.0 {tablet} active Cholecalciferol 50 M CG (1999) [facility] ([facility]) ferrous sulfate 325 MG Oral Tablet Ferrous Sulfate 325 (65 Fe) MG Ferrous Sulfate 325 (65 Fe) MG 12/03/2020 12:00:00 AM EDT 1.0 {tablet} suspended Ferrous Sulfate 325 (65 Fe) MG e [facility] ([facility]) Cholecalciferol 50 MCG (1999 UT) UNK 12/03/2020 12:00:00 AM ED T 1.0 {tablet} active Cholecalciferol 50 M CG (1999 UT) [facility] ([facility]) Cholecalciferol 50 MCG (1999 UT) UNK 12/03/2020 12:00:00 AM ED T 1.0 {tablet} active Cholecalciferol 50 M CG (1999 UT) [facility] ([facility]) ferrous sulfate 325 MG Oral Tablet Ferrous Sulfate 325 (65 Fe) MG Ferrous Sulfate 325 (65 Fe) MG 12/03/2020 12:00:00 AM EDT 1.0 {tablet} suspended Ferrous Sulfate 325 (65 Fe) MG e [facility] ([facility]) ferrous sulfate 325 MG Oral Tablet Ferrous Sulfate 325 (65 Fe) MG Ferrous Sulfate 325 (65 Fe) MG 12/03/2020 12:00:00 AM EDT 1.0 {tablet} active Ferrous Sulfate 325 (65 Fe) MG eCW1 ([facility]) Cholecalciferol 50 MCG (1999 UT) UNK 12/03/2020 12:00:00 AM ED T 1.0 {tablet} active Cholecalciferol 50 M CG (1999 UT) eCW1 ([facility]) Cholecalciferol 50 MCG (1999 UT) UNK 12/03/2020 12:00:00 AM ED T 1.0 {tablet} active Cholecalciferol 50 M CG (1999 UT) eCW1 ([facility]) 50 mg 11/30/2020 12:00:00 AM EST tablet 30 TAKE ONE TABLET BY MOUTH EVERY DAY TAKE ONE TABLET BY MOUTH EVERY DAY SOLD: 12/28/2020 [facility] 50 mg 11/30/2020 12:00:00 AM EST tablet 30 TAKE ONE TABLET BY MOUTH EVERY DAY TAKE ONE TABLET BY MOUTH EVERY DAY SOLD: 11/30/2020 [facility] Sertraline 50 MG Oral Tablet Sertraline HCl 50 MG Sertraline HCl 50 MG 11/29/2020 12:00:00 AM EST 1.0 {tablet} active Sertraline HCl 50 MG eCW1 ([facility]) Sertraline 50 MG Oral Tablet Sertraline HCl 50 MG Sertraline HCl 50 MG 11/29/2020 12:00:00 AM EST 1.0 {tablet} active Sertraline HCl 50 MG eCW1 ([facility]) Sertraline 50 MG Oral Tablet Sertraline HCl 50 MG Sertraline HCl 50 MG 11/29/2020 12:00:00 AM EST 1.0 {tablet} active Sertraline HCl 50 MG eCW1 ([facility]) Sertraline 50 MG Oral Tablet Sertraline HCl 50 MG Sertraline HCl 50 MG 11/29/2020 12:00:00 AM EST 1.0 {tablet} active Sertraline HCl 50 MG eCW1 ([facility]) Sertraline 50 MG Oral Tablet Sertraline HCl 50 MG Sertraline HCl 50 MG 11/29/2020 12:00:00 AM EST 1.0 {tablet} active Sertraline HCl 50 MG eCW1 ([facility]) Sertraline 50 MG Oral Tablet Sertraline HCl 50 MG Sertraline HCl 50 MG 11/29/2020 12:00:00 AM EST 1.0 {tablet} active Sertraline HCl 50 MG eCW1 ([facility]) Sertraline 50 MG Oral Tablet Sertraline HCl 50 MG Sertraline HCl 50 MG 11/29/2020 12:00:00 AM EST 1.0 {tablet} active Sertraline HCl 50 MG eCW1 ([facility]) Sertraline 50 MG Oral Tablet Sertraline HCl 50 MG Sertraline HCl 50 MG 11/29/2020 12:00:00 AM EST 1.0 {tablet} active Sertraline HCl 50 MG eCW1 ([facility]) 5-325 mg 08/24/2020 12:00:00 AM EST tablet 15 TAKE ONE TABLET BY MOUTH THREE TIMES A DAY NEEDED FOR PAIN MAXIMUM DAILY DOSE = 3 TABLETS TAKE ONE TABLET BY MOUTH THREE TIMES A DAY NEEDED FOR PAIN MAXIMUM DAILY DOSE = 3 TABLETS SOLD: 08/24/2020 [facility] Magnesium 300 MG Magnesium 300 MG 07/19/2020 12:00:00 AM EDT 1.0 {tablet} suspended Magnesium 300 MG eCW1 ([facility]) Magnesium 300 MG Magnesium 300 MG 07/19/2020 12:00:00 AM EDT 1.0 {tablet} suspended Magnesium 300 MG eCW1 ([facility]) Magnesium 300 MG Magnesium 300 MG 07/19/2020 12:00:00 AM EDT 1.0 {tablet} suspended Magnesium 300 MG eCW1 ([facility]) Magnesium 300 MG Magnesium 300 MG 07/19/2020 12:00:00 AM EDT 1.0 {tablet} active Magnesium 300 MG eCW1 ([facility]) Magnesium 300 MG Magnesium 300 MG 07/19/2020 12:00:00 AM EDT 1.0 {tablet} suspended Magnesium 300 MG eCW1 ([facility]) Magnesium 300 MG Magnesium 300 MG 07/19/2020 12:00:00 AM EDT 1.0 {tablet} active Magnesium 300 MG eCW1 ([facility]) Magnesium 300 MG Magnesium 300 MG 07/19/2020 12:00:00 AM EDT 1.0 {tablet} active Magnesium 300 MG eCW1 ([facility]) Magnesium 300 MG Magnesium 300 MG 07/19/2020 12:00:00 AM EDT 1.0 {tablet} active Magnesium 300 MG eCW1 ([facility]) Magnesium 300 MG Magnesium 300 MG 07/19/2020 12:00:00 AM EDT 1.0 {tablet} suspended Magnesium 300 MG eCW1 ([facility]) Magnesium 300 MG Magnesium 300 MG 07/19/2020 12:00:00 AM EDT 1.0 {tablet} suspended Magnesium 300 MG eCW1 ([facility]) Magnesium 300 MG Magnesium 300 MG 07/19/2020 12:00:00 AM EDT 1.0 {tablet} suspended Magnesium 300 MG eCW1 ([facility]) Magnesium 300 MG Magnesium 300 MG 07/19/2020 12:00:00 AM EDT 1.0 {tablet} suspended Magnesium 300 MG eCW1 ([facility]) Magnesium 300 MG Magnesium 300 MG 07/19/2020 12:00:00 AM EDT 1.0 {tablet} suspended Magnesium 300 MG eCW1 ([facility]) Magnesium 300 MG Magnesium 300 MG 07/19/2020 12:00:00 AM EDT 1.0 {tablet} suspended Magnesium 300 MG eCW1 ([facility]) Magnesium 300 MG Magnesium 300 MG 07/19/2020 12:00:00 AM EDT 1.0 {tablet} suspended Magnesium 300 MG eCW1 ([facility]) Magnesium 300 MG Magnesium 300 MG 07/19/2020 12:00:00 AM EDT 1.0 {tablet} suspended Magnesium 300 MG eCW1 ([facility]) Magnesium 300 MG Magnesium 300 MG 07/19/2020 12:00:00 AM EDT 1.0 {tablet} suspended Magnesium 300 MG eCW1 ([facility]) Magnesium 300 MG Magnesium 300 MG 07/19/2020 12:00:00 AM EDT 1.0 {tablet} suspended Magnesium 300 MG eCW1 ([facility]) Magnesium 300 MG Magnesium 300 MG 07/19/2020 12:00:00 AM EDT 1.0 {tablet} active Magnesium 300 MG eCW1 ([facility]) Magnesium 300 MG Magnesium 300 MG 07/19/2020 12:00:00 AM EDT 1.0 {tablet} suspended Magnesium 300 MG eCW1 ([facility]) Magnesium 300 MG Magnesium 300 MG 07/19/2020 12:00:00 AM EDT 1.0 {tablet} active Magnesium 300 MG eCW1 ([facility]) 300 mg 07/03/2020 12:00:00 AM EDT capsule 14 TAKE ONE CAPSULE BY MOUTH THREE TIMES A DAY TAKE ONE CAPSULE BY MOUTH THREE TIMES A DAY SOLD: 07/04/2020 [facility] Clindamycin 300 MG Oral Capsule [Cleocin] Cleocin 07/03/2020 1 2:00:00 AM EDT ORAL active MEDENT ([facility], ) pantoprazole 40 MG Delayed Release Oral Tablet Pantoprazole Sodium 40 MG Oral Tablet Delayed Release (PROTONIX) Pantoprazole Sodium 40 MG Oral Tablet De layed Release (PROTONIX) 10/16/2019 12:00:00 AM EST 40 mg Oral active Take 1 tablet by mouth [facility] clopidogrel 75 MG Oral Tablet Clopidogrel Bisulfate 75 MG Oral Tablet (PLAVIX) Clopidogrel Bisulfate 75 MG Oral Tablet (PLAVIX) 10/16/2019 12:00:00 AM EST 75 mg Oral active Take 1 tablet by mouth d [facility] montelukast 10 MG Oral Tablet Montelukast Sodium 10 MG Oral Tablet (SINGULAIR) Montelukast Sodium 10 MG Oral Tablet (SINGULAIR) 10/15/2019 12:00:00 AM EST 10 mg Oral active Take 1 tablet by mouth n [facility] Insurance Providers Payer name Policy type / Coverage type Policy ID Covered democrat ID Covered democrat's relationship to joyner Policy Joyner Plan Information BCBS GENERIC C [id number] Self [id number] MEDICAID M [id number] Self [id number] EROS I [id number] Self [id number] Medicaid S [id number] S [id number] Managed Care - [facility] P [id number] S [id number] [facility] [id number] [facility] Physicians P [id number] S [id number] MVP H [id number] Self [id number] [facility] HEALTH CARE [id number] SP [id number] [facility] Health Care Commercial Insurance Co. [id number] Self [id number] ANSI-Not a Secondary Insurance [id number] [facility] HEALTH CARE [id number] SP [id number] [facility] Commercial [id number] Self [id number] [facility] Commercial [id number] Self [id number] [facility] [id number] SP [id number] [facility] Health Maintenance Organization (O) [id number] Self [id number] KEV[facility] O [id number] S [id number] [facility] Maintenance Organization (O) [id number] Self [id number] [facility] Health Maintenance Organization (O) [id number] Self [id number] [facility] Health Maintenance Organization (O) [id number] Self [id number] [facility] Health Maintenance Organization (O) [id number] Self [id number] [facility](MCA[facility]) O [id number] S [id number] [facility] Health Maintenance Organization ([facility]) [id number] Self [id number] [facility] [id number] SP [id number] [facility] Health Maintenance Organization ([facility]) [id number] Self [id number] [facility] Health Maintenance Organization ([facility]) [id number] Self [id number] [facility] Health Maintenance [facility] ([facility]) [id number] Self [id number] EROS [id number] SP [id number] MEDICAID M [id number] Self [id number] EXCELLUS BLUE CROSS BLUE SHIELD A [id number] [facility] BLUE [id number] SP [id number] MEDICAID HEALTH MAINTENANCE ORGANIZATION HEA "" [id number] "" [facility] BLUE [id number] SP [id number] [facility] HEALTH CARE [id number] SP [id number] [facility] [id number] [facility] HEALTH CARE [id number] SP [id number] [facility] HEALTH CARE O [id number] S [id number] [facility] [id number] SP [id number] [facility] HEALTH CARE O [id number] S [id number] Self Pay S UNAVAILABLE S UNAVAILA BLE [facility] Health Maintenance Organization ([facility]) [id number] Self [id number] ANSI-Not a Secondary Insurance [id number] [facility] Physicians P [id number] S [id number] ANSI-Not a Secondary Insurance [id number] Problems, Conditions, and Diagnoses Code Display Name Description Problem Type Effective Dates Data Source(s) J32.9 Chronic sinusitis Chronic sinusitis Problem 08/07/2021 12:00:00 AM EST MEDENT ([facility], ) D50.9 [id number] Iron deficiency anemia, unspecif ied iron deficiency anemia type Problem 12/18/2020 12:00:00 AM EDT eCW1 ([facility]) E55.9 [id number] Vitamin D deficiency Problem 12/18/2020 12:0 0:00 AM EDT eCW1 ([facility]) F41.9 Anxiety Anxiety Problem 11/29/2020 12:00:00 AM ES T eCW1 ([facility]) F33.1 [id number] 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 Problem 11/29/2020 12:00:00 AM EST eCW1 ([facility]) N93.9 [id number] Abnormal uterine and vaginal bleeding, unspecified Problem 08/03/2020 12:00:00 AM EST eCW1 ([facility]) Surgeries/Procedures Procedure Description Date Indications Data Source(s) OFFICE OUTPATIENT VISIT 15 MINUTES 08/07/2021 12:00:00 AM EST MED[facility] ([facility], ) OFFICE OUTPATIENT VISIT 15 MINUTES 07/17/2021 12:00:00 AM EDT MEDENT ([facility]) OFFICE OUTPATIENT NEW 45 MINUTES 05/14/2021 12:00:00 A M EDT [facility] ([facility], ) Results ID Date Data Source [id number] 08/19/2021 11:00:00 AM EST [facility] Name Value Range Interpretation Code Description Data Luann rce(s) Supporting Document(s) SARS-CoV-2 (COVID-19) RNA [Presence] in Respiratory specimen by JACKELYN with probe detection Not Detected [facility] This lab was ordered by [facility] and reported by [employer]. ID Date Data Source [id number] 07/17/2021 12:00:00 AM EDT [facility] Name Value Range Interpretation Code Description Data Luann rce(s) Supporting Document(s) SARS-CoV2 Rapid Antigen Negative [facility] This lab was ordered by [facility] and reported by [facility]. ID Date Data Source [id number] 06/23/2021 05:30:00 PM EDT [facility] Name Value Range Interpretation Code Description Data Luann rce(s) Supporting Document(s) SARS-CoV-2 RNA Resp Ql JACKELYN+probe NOT DETECTED [facility] This lab was ordered by [facility] and reported by [facility]. ID Date Data Source [id number] 05/14/2021 11:11:00 AM EDT [facility], ) Name Value Range Interpretation Code Description Data Luann rce(s) Supporting Document(s) Mitochondria Ab [Units/volume] in Serum Laboratory test result 0 .0-20.0 Normal (applies to non-numeric results) [facility] ([facility], ) Negative 0.0 - 20.0 Equivocal 20.1 - 24.9 Positive >24.9 . Mitochondrial (M2) Antibodies are found in 90-96% of patients with primary biliary cirrhosis. ID Date Data Source [id number] 05/14/2021 11:11:00 AM EDT [facility]) Name Value Range Interpretation Code Description Data Luann rce(s) Supporting Document(s) Antinuclear Antibodies Direct Laboratory test result Abnormal (applies to non- numeric results) [facility] ([facility]) Anti Double Strand-Dna AB 10 IU/ml 0-9 Above high normal [facility] ([facility]) <content>Negative <5</content>
<content>Equivocal 5 - 9</content>
<content>Positive >9</content>
<content></content> PRESSURE TEST OPERATOR Antibodies 0.2 AI 0.0-0.9 Normal (applies to non-numeric r esults) MED[facility] ([facility]) Ramos Antibodies Laboratory test result 0.0-0.9 Normal ( applies to non-numeric results) [facility]) Sjogren's Anti SS-A Laboratory test result 0.0-0.9 Ernestina l (applies to non- numeric results) [facility]) Ivelisse Comment Laboratory test result Normal (applies to non- numeric results) [facility] ([facility]) . Autoantibody Disease Association Condition Frequency -------- [...] (anti-Ramos) SLE 15 - 30% ------- --------- PRESSURE TEST OPERATOR Mixed Connective Tissue Disease 95% (U1 nRNP, SLE 30 - 50% anti-ribonucleoprotein) Polymyositis and/or Dermatomyositis 20% -------- --------- Scl-70 (antiDNA Scleroderma (diffuse) 20 - 35% topoisomerase) Crest 13% -------- --------- Denise-1 Polymyositis and/or Dermatomyositis 20 - 40% -------- --------- Centromere B Scleroderma - Crest variant 80% Sjogren's Anti SS-B Laboratory test result 0.0-0.9 Ernestina l (applies to non- numeric results) JULIETTE ([facility], ) ID Date Data Source [id number] 05/14/2021 11:11:00 AM CAMMY SEGOVIA ([facility], ) Name Value Range Interpretation Code Description Data Luann rce(s) Supporting Document(s) Tissue transglutaminase IgA Ab [Units/volume] in Serum Labor atory test result 0-3 Normal (applies to non-numeric results) [facility]) Negative 0 - 3 Weak Positive 4 - 10 Positive >10 . Tissue Transglutaminase (tTG) has been identified as the endomysial antigen. Studies have demonstr- ated that endomysial IgA antibodies have over 99% specificity for gluten sensitive enteropathy. IgA [Mass/volume] in Serum or Plasma 287.0 mg/dL 70-400 Normal (applies to non- numeric results) [facility], ) <content>note:<nlbl:demographic_changed> </content>
<content></content> ID Date Data Source [id number] 05/14[facility]2021 [facility] Name Value Range Interpretation Code Description Data Luann rce(s) Supporting Document(s) Ast/Sgot 13 U/L 7-37 Normal (applies to non-numeric resul ts) [facility] ([facility]) Alt/SGPT 28 U/L 12-78 Normal (applies to non-numeric resul ts) [facility]) Alkaline Phosphatase 71 U/L 45-117 Normal (applies to non-num keri results) [facility] ([facility]) Bilirubin,Total 0.7 mg/dL 0.2-1.0 Normal (applies to non-numeric results) [facility]) Bilirubin,Direct 0.2 mg/dL 0.0-0.2 Normal (applies to non-numeric results) [facility]) Albumin 4.1 GM/DL 3.2-5.2 Normal (applies to non-numeric resul ts) [facility]) Total Protein 7.8 GM/DL 6.4-8.2 Normal (applies to non-numeric re sults) [facility]) Albumin/Globulin Ratio 1.1 1.2-2.2 Below low normal [facility]) ID Date Data Source [id number] 05/14/2021 [facility]:11[facility] Name Value Range Interpretation Code Description Data Luann rce(s) Supporting Document(s) Hepatitis C Virus Vilma Index Laboratory test result Normal (applies to non- numeric results) [facility] ([facility]) Hepatitis B Surface Antigen Laboratory test result Normal (applies to non- numeric results) [facility] ([facility]) Hepatitis B Core Antibody Igm Laboratory test result Normal (applies to non- numeric results) [facility]) Hepatitis A Antibody Igm Laboratory test result Normal (applies to non-numeric results) [facility]) ID Date Data Source [id number] 05/14/2021 11:11:00 AM EDT [facility]) Name Value Range Interpretation Code Description Data Luann rce(s) Supporting Document(s) Ceruloplasmin [Mass/volume] in Serum or Plasma 25.5 mg/dL 1 9.0-39.0 Normal (applies to non-numeric results) [facility]) Performed at: [facility] [address] [id number] Broach Grinder: Sarahy Muniz MD, Phone: [phone] Performed at: [facility] [id number] Broach Grinder: Deneen Irene MD, Phone: [phone] ID Date Data Source [id number] 05/14/2021 11:11:00 AM EDT [facility]) Name Value Range Interpretation Code Description Data Luann rce(s) Supporting Document(s) Iron (Fe) 151 ug/dL 50-170 Normal (applies to non-numeric resul ts) [facility] ([facility]) Percent Saturation 43.3 % 13.2-45.0 Normal (applies to non-numer ic results) [facility] ([facility]) Total Iron Binding Capacity 349 ug/dL 250-450 Norm al (applies to non-numeric results) [facility]) ID Date Data Source [id number] 05/14/2021 11:11:00 AM EDT [facility]) Name Value Range Interpretation Code Description Data Luann rce(s) Supporting Document(s) Cytoplasmic Neutrop AB Anca-C Laboratory test result Normal (applies to non- numeric results) [facility]) Perinuclear AB Anca-P Laboratory test result Nor mal (applies to non-numeric results) [facility] ([facility], ) The presence of positive fluorescence ex hibiting P-ANCA or C-ANCA patterns alone is not specific for the diagnosis of Christal's Granulomatosis (WG) or microscopic polyangiitis. Decisions about treatment should not be based solely on ANCA IFA results. The International ANCA Group Consensus recommends follow up testing of positive sera with both KY- 3 and MPO-ANCA enzyme immunoassays. As m any as 5% serum samples are positive only by EIA. Ref. AM J Clin Pathol 1999;111:507-513. Anca-Atypical Laboratory test result Normal (applies t o non-numeric results) [facility] ([facility], ) The atypical pANCA pattern has been obse rved in a significant percentage of patients with ulcerative colitis, primary sclerosing cholangitis and autoimmune hepatitis. ID Date Data Source WW Pelvis non-OB COMPLETE US 03/01/2021 12:00:00 AM EDT eC W1 ([facility]) Name Value Range Interpretation Code Description Data Luann rce(s) Supporting Document(s) WWBC Pelvis non-OB COMPLETE US eCW1 ([facility]) ID Date Data Source [id number] 01/08/2021 02:24:00 PM EDT [facility] Name Value Range Interpretation Code Description Data Luann rce(s) Supporting Document(s) SARS-CoV-2 (COVID-19) RNA [Presence] in Respiratory specimen by JACKELYN with probe detection Not Detected [facility] This lab was ordered by [facility] and reported by [employer]. ID Date Data Source [id number] 01/08/2021 12:25:00 PM EDT [facility] Name Value Range Interpretation Code Description Data Luann rce(s) Supporting Document(s) SARS COVID ANTIGEN NEGATIVE [facility] This lab was ordered by JESSICA terry nd reported by [facility]. ID Date Data Source Coronavirus 2019 NOSE (Send Out) COVID 01/08/2021 12:00:00 A M EDT eCW1 ([facility]) Name Value Range Interpretation Code Description Data Luann rce(s) Supporting Document(s) ASSAY INFORMATION: Real Time RT-PCR CORONAVIRUS 2019 NOSE eCW1 ([facility]) ID Date Data Source LIV COVID AG (Point of Care) 01/08/2021 12:00:00 AM EDT eC W1 ([facility]) Name Value Range Interpretation Code Description Data Luann rce(s) Supporting Document(s) NEGATIVE NEGATIVE LIV COVID ANTIGEN eCW1 ([facility]) ID Date Data Source FREE T4 11/29/2020 12:00:00 AM EST eCW1 ([facility]) Name Value Range Interpretation Code Description Data Luann rce(s) Supporting Document(s) 1.07 0.76-1.46 FREE T4 eCW1 ([facility]) ID Date Data Source FERRITIN 11/29/2020 12:00:00 AM EST eCW1 ([facility]) Name Value Range Interpretation Code Description Data Luann rce(s) Supporting Document(s) 7 8-252 FERRITIN eCW1 ([facility]) ID Date Data Source TSH 11/29/2020 12:00:00 AM EST eCW1 ([facility]) Name Value Range Interpretation Code Description Data Luann rce(s) Supporting Document(s) 1.330 0.358-3.740 THYROID STIMULATING HORM ONE eCW1 ([facility]) ID Date Data Source Comprehensive Metabolic Profile (CMP) 11/29/2020 12:00:00 AM EST eCW1 ([facility]) Name Value Range Interpretation Code Description Data Luann rce(s) Supporting Document(s) 111 70-100 GLUCOSE, FASTING eCW1 ([facility]) 10 7-18 BLOOD UREA NITROGEN eCW1 ([facility]) 0.86 0.55-1.30 CREATININE FOR GFR eCW1 ([facility]) > 60.0 >60 GLOMERULAR FILTRATION RATE eCW 1 ([facility]) 139 136-145 SODIUM LEVEL eCW1 ([facility]) 108 98-107 CHLORIDE LEVEL eCW1 ([facility]) 3.9 3.5-5.1 POTASSIUM SERUM eCW1 ([facility]) 20 12-78 ALT/SGPT eCW1 ([facility]) 12 7-37 AST/SGOT eCW1 ([facility]) 9.5 8.5-10.1 CALCIUM LEVEL eCW1 ([facility]) 25 21-32 CARBON DIOXIDE LEVEL eCW1 ([facility]) 7.9 6.4-8.2 TOTAL PROTEIN eCW1 ([facility]) 81 45-117 ALKALINE PHOSPHATASE eCW1 ([facility]) 0.4 0.2-1.0 BILIRUBIN,TOTAL eCW1 ([facility]) 1.2 1.2-2.2 ALBUMIN/GLOBULIN RATIO eCW1 ([facility]) 4.3 3.2-5.2 ALBUMIN eCW1 ([facility]) ID Date Data Source CBC with Differential 11/29/2020 12:00:00 AM EST eCW1 ([facility]) Name Value Range Interpretation Code Description Data Luann rce(s) Supporting Document(s) 11.4 4.0-10.0 WHITE BLOOD COUNT eCW1 ([facility]) 39.6 36.0-47.0 HEMATOCRIT eCW1 ([facility]) 4.96 4.00-5.40 RED BLOOD COUNT eCW1 ([facility]) 12.4 12.0-15.5 HEMOGLOBIN eCW1 ([facility]) 31.3 32.0-36.5 MEAN CORPUSCULAR HGB CONC eCW1 ([facility]) 25.0 27.0-33.0 MEAN CORPUSCULAR HEMOGLOB IN eCW1 ([facility]) 79.8 80.0-96.0 MEAN CORPUSCULAR VOLUME e CW1 ([facility]) 15.9 11.5-14.5 RED CELL DISTRIBUTION WID TH eCW1 ([facility]) 13.0 24.0-44.0 LYMPH % eCW1 ([facility]) 80.3 36.0-66.0 NEUTROPHILS % eCW1 ([facility]) 343 150-450 PLATELET COUNT, AUTOMATED eCW1 ([facility]) 5.3 2.0-8.0 MONO % eCW1 ([facility]) 0.4 0.0-1.0 BASO % eCW1 ([facility]) 0.5 0.0-3.0 EOS % eCW1 ([facility]) 1.5 1.5-5.0 LYMPH # eCW1 ([facility]) 9.1 1.5-8.5 NEUTROPHILS # eCW1 ([facility]) 0.1 0.0-0.5 EOS # eCW1 ([facility]) 0.6 0.0-0.8 MONO # eCW1 ([facility]) 0.0 0.0-0.2 BASO # eCW1 ([facility]) ID Date Data Source Urinalysis, no Micro 11/29/2020 12:00:00 AM EST eCW1 ([facility]) Name Value Range Interpretation Code Description Data Luann rce(s) Supporting Document(s) 1.000 1.002 - 1.035 Spec gravity eCW1 ([facility]) - Negative - Nitrate eCW1 ([facility]) 7 5.0 - 9.0 pH eCW1 ([facility]) - Negative - Leukocyte eCW1 ([facility]) normal Negative - mg/dl Glucose eCW1 ([facility]) - Negative - mg/dl Protein eCW1 ([facility]) - Normal - mg/dl Urobili eCW1 ([facility]) - Negative - mg/dl Ketones eCW1 ([facility]) - Negative - Bilirubin eCW1 ([facility]) yes Internal QC Acceptable (Y/N) e CW1 ([facility]) - Negative - Blood eCW1 ([facility]) ID Date Data Source [id number] 09/25/2020 02:19:00 PM [facility] Name Value Range Interpretation Code Description Data Luann rce(s) Supporting Document(s) Progress Note [facility] [id number]/VKCitNUFda1K[id number] lbm [file] [id number]/vending supervisor/9hE1htDsQ0ghlk4+ [file] b2sKvszxNY6kAuw+o2mTuZNe87efKmbeJes1bLCZL8BX/1T8IJsYWhxYgHwpDx+7Y5Zu55JmM27t+placement coordinator [file] [id number]+OJkmdYSomFwjKBLCIdsdVIX5SPrhEGWWMw7E ID Date Data Source [id number] 08/19/2020 08:30:00 AM EST [facility] Name Value Range Interpretation Code Description Data Luann rce(s) Supporting Document(s) SARS coronavirus 2 RNA [facility] This lab was ordered by [facility] and reported by [facility]. ID Date Data Source PAP REQUEST FOR SERVICE 06/29/2020 10:18:19 AM EDT eCW1 ([facility]) Name Value Range Interpretation Code Description Data Luann rce(s) Supporting Document(s) eCW1 ([facility]) ID Date Data Source FREE T4 & TSH PANEL 06/27/2020 02:22:18 AM EDT eCW1 ([facility]) Name Value Range Interpretation Code Description Data Luann rce(s) Supporting Document(s) 1.330 eCW1 ([facility]) 1.10 eCW1 ([facility]) ID Date Data Source CBC - Complete Blood Count 06/27/2020 02:22:18 AM EDT eCW1 ( [facility]) Name Value Range Interpretation Code Description Data Luann rce(s) Supporting Document(s) 9.5 eCW1 ([facility]) 38.1 eCW1 ([facility]) 11.8 eCW1 ([facility]) 78.4 eCW1 ([facility]) 4.86 eCW1 ([facility]) 347 eCW1 ([facility]) 24.3 eCW1 ([facility]) 14.7 eCW1 ([facility]) 31.0 eCW1 ([facility]) Procedure Social History Code Duration Value Status Description Data Source(s ) Smoking 03/01/2021 12:00:00 AM EDT Never Smoker completed Never S moker eCW1 ([facility]) Smoking 03/01/2021 12:00:00 AM EDT Never Smoker completed Never S moker eCW1 ([facility]) Smoking 03/01/2021 12:00:00 AM EDT Never Smoker completed Never S moker eCW1 ([facility]) Smoking 03/01/2021 12:00:00 AM EDT Never Smoker completed Never S moker eCW1 ([facility]) Smoking 02/13/2021 12:00:00 AM EDT Never Smoker completed Never S moker eCW1 ([facility]) Smoking 01/25/2021 12:00:00 AM EDT Never Smoker completed Never S moker eCW1 ([facility]) Smoking 01/25/2021 12:00:00 AM EDT Never Smoker completed Never S moker eCW1 ([facility]) Smoking 01/08/2021 12:00:00 AM EDT Never Smoker completed Never S moker eCW1 ([facility]) Smoking 01/08/2021 12:00:00 AM EDT Never Smoker completed Never S moker eCW1 ([facility]) Smoking 12/18/2020 12:00:00 AM EDT Never Smoker completed Never S moker eCW1 ([facility]) Smoking 11/29/2020 12:00:00 AM EST Never Smoker completed Never S moker eCW1 ([facility]) Smoking 11/29/2020 12:00:00 AM EST Never Smoker completed Never S moker eCW1 ([facility]) Smoking 11/29/2020 12:00:00 AM EST Never Smoker completed Never S moker eCW1 ([facility]) Smoking 10/05/2020 12:00:00 AM EST Never Smoker completed Never S moker eCW1 ([facility]) Smoking 10/05/2020 12:00:00 AM EST Never Smoker completed Never S moker eCW1 ([facility]) Alcohol intake 09/25/2020 12:00:00 AM EST Current drinker of al cohol (finding) completed Current drinker of alcohol (finding) [facility] Tobacco use and exposure 09/25/2020 12:00:00 AM EST Never used co mpleted Never used [facility] Smoking 09/25/2020 12:00:00 AM EST Never smoker completed Never s [facility] Smoking 09/06/2020 12:00:00 AM EST Never Smoker completed Never S moker eCW1 ([facility]) Smoking 08/03/2020 12:00:00 AM EST Never Smoker completed Never S moker eCW1 ([facility]) Smoking 08/03/2020 12:00:00 AM EST Never Smoker completed Never S moker eCW1 ([facility]) Smoking 08/03/2020 12:00:00 AM EST Never Smoker completed Never S moker eCW1 ([facility]) Vital Signs ID Date Data Source UNK Name Value Range Interpretation Code Description Data Source(s) Heart rate 70 /min 70 /min MEDENT ([facility], ) Oxygen saturation in Arterial blood by Pulse oximetry 98 % 98 % MEDENT ([facility], ) Body height 64 [in_i] 64 [in_i] [facility] ([facility]) 5'4" Body weight 183.00 [lb_av] 183.00 [lb_av] MEDEN T ([facility]) Systolic blood pressure 141 mm[Hg] 141 mm[Hg] M EDENT ([facility]) Diastolic blood pressure 90 mm[Hg] 90 mm[Hg] [facility] ([facility]) Body mass index (BMI) [Ratio] 31.4 kg/m2 31.4 k g/m2 [facility] ([facility]) [place] body weight 120 [lb_av] 120 [lb_av] MEDEN T ([facility]) Body weight 83.009 kg 83.009 kg [facility] ([facility]) Body surface area Derived from formula 1.88 m2 1.88 m2 [facility] ([facility]) Body height 64 [in_i] 64 [in_i] [facility] ([facility], [facility]) 5'4" Systolic blood pressure 125 mm[Hg] 125 mm[Hg] M EDENT ([facility], [facility]) Diastolic blood pressure 84 mm[Hg] 84 mm[Hg] [facility] ([facility], [facility]) Heart rate 85 /min 85 /min [facility] ([facility], [facility]) Respiratory rate 16 /min 16 /min [facility] ( [facility], [facility]) Oxygen saturation in Arterial blood by Pulse oximetry 98 % 98 % [facility] ([facility], [facility]) Body temperature 98.4 [degF] 98.4 [degF] [facility] ([facility], [facility]) Body weight 170.00 [lb_av] 170.00 [lb_av] MEDEN T ([facility], [facility]) Body mass index (BMI) [Ratio] 29.2 kg/m2 29.2 k g/m2 [facility] ([facility]) Diastolic blood pressure 91 mm[Hg] 91 mm[Hg] [facility] ([facility]) Body height 64 [in_i] 64 [in_i] [facility] ([facility]) 5'4" Body weight 174.00 [lb_av] 174.00 [lb_av] MEDEN T ([facility]) Systolic blood pressure 131 mm[Hg] 131 mm[Hg] M EDENT ([facility]) Body mass index (BMI) [Ratio] 29.9 kg/m2 29.9 k g/m2 [facility] [place] body weight 120 [lb_av] 120 [lb_av] MEDEN T ([facility]) Body weight 78.926 kg 78.926 kg [facility] ([facility]) Body surface area Derived from formula 1.84 m2 1.84 m2 [facility] ([facility]) Body weight 171 [lb_av] 171 [lb_av] eCW1 ([facility]) Body height 64 [in_i] 64 [in_i] eCW1 ([facility]) Body mass index (BMI) [Ratio] 29.35 kg/m2 29.35 kg/m2 W1 ([facility]) Heart rate 65 /min 65 /min eCW1 ([facility]) Respiratory rate 18 /min 18 /min W1 ([facility] Body temperature 98 [degF] 98 [degF] eCW1 ([facility] Systolic blood pressure 130 mm[Hg] 130 mm[Hg] e CW1 ([facility]) Diastolic blood pressure 100 mm[Hg] 100 mm[Hg] eCW1 ([facility]) Body weight 168.4 [lb_av] 168.4 [lb_av] eCW1 ([facility]) Body height 64 [in_i] 64 [in_i] eCW1 ([facility]) Body mass index (BMI) [Ratio] 28.9 kg/m2 28.9 k g/m2 W1 ([facility]) Systolic blood pressure 122 mm[Hg] 122 mm[Hg] e CW1 ([facility]) Diastolic blood pressure 76 mm[Hg] 76 mm[Hg] eCW1 ([facility]) Systolic blood pressure 145 mm[Hg] 145 mm[Hg] M EDENT ([facility], [facility]) Diastolic blood pressure 92 mm[Hg] 92 mm[Hg] MEDENT ([facility], [facility]) Heart rate 80 /min 80 /min MEDENT ([facility], [facility]) Respiratory rate 24 /min 24 /min MEDENT ( [facility], [facility]) Oxygen saturation in Arterial blood by Pulse oximetry 99 % 99 % MEDENT ([facility], [facility]) Body temperature 97.3 [degF] 97.3 [degF] MEDENT ([facility], [facility]) Body weight 160.00 [lb_av] 160.00 [lb_av] MEDEN T ([facility], [facility]) Body height 64 [in_i] 64 [in_i] MEDENT ([facility], [facility]) 5'4" Body mass index (BMI) [Ratio] 27.5 kg/m2 27.5 k g/m2 MEDENT ([facility], [facility]) Heart rate 104 /min 104 /min eCW1 ([facility]) Body weight 165 [lb_av] 165 [lb_av] eCW1 ([facility]) Body height 64 [in_i] 64 [in_i] eCW1 ([facility]) Diastolic blood pressure 84 mm[Hg] 84 mm[Hg] eCW1 ([facility]) Respiratory rate 18 /min 18 /min eCW1 ([facility]) Body temperature 99.1 [degF] 99.1 [degF] eCW1 ( [facility]) Systolic blood pressure 120 mm[Hg] 120 mm[Hg] e CW1 ([facility]) Body mass index (BMI) [Ratio] 28.32 kg/m2 28.32 kg/m2 eCW1 ([facility]) Body weight 165 [lb_av] 165 [lb_av] eCW1 ([facility]) Body height 64 [in_i] 64 [in_i] eCW1 ([facility]) Body mass index (BMI) [Ratio] 28.32 kg/m2 28.32 kg/m2 eCW1 ([facility]) Heart rate 72 /min 72 /min eCW1 ([facility]) Respiratory rate 18 /min 18 /min eCW1 ([facility] Body temperature 97.1 [degF] 97.1 [degF] eCW1 ( [facility]) Systolic blood pressure 124 mm[Hg] 124 mm[Hg] e CW1 ([facility]) Diastolic blood pressure 84 mm[Hg] 84 mm[Hg] eCW1 ([facility]) Body weight 165 [lb_av] 165 [lb_av] eCW1 ([facility]) Body height 64 [in_i] 64 [in_i] eCW1 ([facility]) Body mass index (BMI) [Ratio] 28.32 kg/m2 28.32 kg/m2 eCW1 ([facility]) Heart rate 111 /min 111 /min eCW1 ([facility]) Respiratory rate 18 /min 18 /min eCW1 ([facility] Body temperature 98.3 [degF] 98.3 [degF] eCW1 ( [facility]) Systolic blood pressure 156 mm[Hg] 156 mm[Hg] e CW1 ([facility]) Diastolic blood pressure 98 mm[Hg] 98 mm[Hg] eCW1 ([facility]) [place] body weight 120 [lb_av] 120 [lb_av] MEDEN T ([facility], ) Body weight 72.576 kg 72.576 kg MEDENT ([facility], ) Body height 64 [in_i] 64 [in_i] MEDENT ([facility], ) 5'4" Body weight 160.00 [lb_av] 160.00 [lb_av] MEDEN T ([facility], ) Body mass index (BMI) [Ratio] 27.5 kg/m2 27.5 k g/m2 [facility] Body surface area Derived from formula 1.78 m2 1.78 m2 [facility] ([facility], ) Body weight 166 [lb_av] 166 [lb_av] eCW1 ([facility]) Body height 64 [in_i] 64 [in_i] eCW1 ([facility]) Body mass index (BMI) [Ratio] 28.49 kg/m2 28.49 kg/m2 eCW1 ([facility]) Systolic blood pressure 122 mm[Hg] 122 mm[Hg] e CW1 ([facility]) Diastolic blood pressure 78 mm[Hg] 78 mm[Hg] eCW1 ([facility]) Body weight 164.8 [lb_av] 164.8 [lb_av] eCW1 ([facility]) Body weight 74.75 kg 74.75 kg eCW1 ([facility]) Body height 64 [in_i] 64 [in_i] eCW1 ([facility]) Body mass index (BMI) [Ratio] 28.28 kg/m2 28.28 kg/m2 eCW1 ([facility]) Systolic blood pressure 122 mm[Hg] 122 mm[Hg] e CW1 ([facility]) Diastolic blood pressure 76 mm[Hg] 76 mm[Hg] eCW1 ([facility]) Body weight 166 [lb_av] 166 [lb_av] eCW1 ([facility]) Body height 64 [in_i] 64 [in_i] eCW1 ([facility]) Body mass index (BMI) [Ratio] 28.49 kg/m2 28.49 kg/m2 eCW1 ([facility]) Systolic blood pressure 152 mm[Hg] 152 mm[Hg] e CW1 ([facility]) Diastolic blood pressure 88 mm[Hg] 88 mm[Hg] eCW1 ([facility]) Systolic blood pressure 122 mm[Hg] 122 mm[Hg] e CW1 ([facility]) Body weight 169 [lb_av] 169 [lb_av] eCW1 ([facility]) Body height 64 [in_i] 64 [in_i] eCW1 ([facility]) Body mass index (BMI) [Ratio] 29.01 kg/m2 29.01 kg/m2 eCW1 ([facility]) Heart rate 73 /min 73 /min eCW1 ([facility]) Respiratory rate 18 /min 18 /min eCW1 ([facility] Body temperature 97.9 [degF] 97.9 [degF] eCW1 ( [facility]) Diastolic blood pressure 78 mm[Hg] 78 mm[Hg] eCW1 ([facility]) Body weight 72.576 kg 72.576 kg [facility] ([facility]) Body height 64 [in_i] 64 [in_i] [facility] ([facility]) 5'4" Body weight 160.00 [lb_av] 160.00 [lb_av] MEDEN T ([facility]) Body mass index (BMI) [Ratio] 27.5 kg/m2 27.5 k g/m2 [facility] ([facility]) [place] body weight 120 [lb_av] 120 [lb_av] MEDEN T ([facility]) Body height 64 [in_i] 64 [in_i] [facility] ([facility]) 5'4" Body weight 160.00 [lb_av] 160.00 [lb_av] MEDEN T ([facility]) Body mass index (BMI) [Ratio] 27.5 kg/m2 27.5 k g/m2 [facility] ([facility]) [place] body weight 120 [lb_av] 120 [lb_av] MEDEN T ([facility]) Body weight 72.576 kg 72.576 kg [facility] ([facility]) Body surface area Derived from formula 1.78 m2 1.78 m2 [facility] ([facility]) Body height 64 [in_i] 64 [in_i] [facility] ([facility]) 5'4" Body weight 160.00 [lb_av] 160.00 [lb_av] MEDEN T ([facility]) Body mass index (BMI) [Ratio] 27.5 kg/m2 27.5 k g/m2 MEDENT ([facility], ) [place] body weight 120 [lb_av] 120 [lb_av] MEDEN T ([facility], ) Body weight 72.576 kg 72.576 kg [facility] ID Date Data Source [id number] 09/25/2020 04:21:33 PM [facility] Name Value Range Interpretation Code Description Data Source(s) WEIGHT RECORDED 165 lb 165 lb [facility] Patient Treatment Plan of Care Planned Activity Planned Date Details Description Data Source (s) Polysaccharide iron complex 150 MG Oral Capsule 12/18/2020 12:00:00 AM EDT eCW1 ([facility]) ferrous sulfate 325 MG Oral Tablet 12/03/2020 12:00:00 AM EDT eCW1 ([facility]) Cholecalciferol 50 MCG (1999 ND) 12/03/2020 12:00:00 AM EDT eCW1 ([facility]) Sertraline 50 MG Oral Tablet 11/29/2020 12:00:00 AM EST eCW1 ([facility]) Sertraline 50 MG Oral Tablet 11/29/2020 12:00:00 AM EST eCW1 ([facility]) Sertraline 50 MG Oral Tablet 11/29/2020 12:00:00 AM EST eCW1 ([facility]) Magnesium 300 MG 07/19/2020 12:00:00 AM EDT eCW1 ([facility]) Magnesium 300 MG 07/19/2020 12:00:00 AM EDT eCW1 ([facility]) pantoprazole 40 MG Delayed Release Oral Tablet 10/16/2019 12:00:00 AM [facility] clopidogrel 75 MG Oral Tablet 10/16/2019 12:00:00 AM [facility] montelukast 10 MG Oral Tablet 10/15/2019 12:00:00 AM [facility]
[2021-08-23] MEDS ORDERED: propofoL 200 MG/20 ML VIAL As Ordered ONE ×2 (13:05→13:36)
[2021-08-23] MEDS ORDERED: LIDOCAINE 2% 100MG/5ML SDV (FOR ANES.) As Ordered ONE (13:05)
[2021-08-23] MEDS ORDERED: dexameTHASONE 4 MG/ML 1ML VIAL (J1100 PER 1MG) As Ordered ONE (13:13)
--- NOTE | 2021-08-23 13:23 | ROOR ---
Patient Name: Jennifer Cowart Procedure Date: 08/23/2021 1:07 PM Date of : 1990 Age: 31 Room: [facility] Gender: Female Note Status: Finalized Procedure: Upper GI endoscopy Indications: Iron deficiency anemia Providers: Ronny Santos MD Referring MD: JAYJAY Collado Requesting Provider: Medicines: Monitored Anesthesia Care Complications: No immediate complications. Procedure: Pre-Anesthesia Assessment: - The heart rate, respiratory rate, oxygen saturations, blood pressure, adequacy of pulmonary ventilation, and response to care were monitored throughout the procedure. The Endoscope was introduced through the mouth, and advanced to the second part of duodenum. The upper GI endoscopy was accomplished without difficulty. The patient tolerated the procedure well. Findings: The esophagus was normal. The stomach was normal. The examined duodenum was normal. Impression: - Normal esophagus. - Normal stomach. - Normal examined duodenum. - No specimens collected. Recommendation: - Observe patient's clinical course. Procedure Code(s): --- Professional --- 99085, Esophagogastroduodenoscopy, flexible, transoral; diagnostic, including collection of specimen(s) by brushing or washing, when performed (separate procedure) Diagnosis Code(s): --- Professional --- D50.9, Iron deficiency anemia, unspecified CPT copyright 2019 [employer]. All rights reserved. The codes documented in this report are preliminary and upon hearing aid assistant review may be revised to meet current compliance requirements. Ronny Santos MD Ronny Santos MD 08/23/2021 1:23:08 PM Electronically signed by Ronny Santos MD Number of Addenda: 0 Note Initiated On: 08/23/2021 1:07 PM Estimated Blood Loss: Estimated blood loss: none.
[2021-08-23] MEDS ORDERED: ESMOLOL INJ 100MG/10ML VIAL As Ordered ONE (13:34)
--- NOTE | 2021-08-23 13:41 | ROOR ---
Patient Name: Jennifer Cowart Procedure Date: 08/23/2021 1:07 PM Date of : 1990 Age: 31 Room: CANONES02 Gender: Female Note Status: Finalized Procedure: Colonoscopy Indications: Iron deficiency anemia Providers: Ronny Santos MD Referring MD: JAYJAY Collado Requesting Provider: Medicines: Monitored Anesthesia Care Complications: No immediate complications. Procedure: Pre-Anesthesia Assessment: - The heart rate, respiratory rate, oxygen saturations, blood pressure, adequacy of pulmonary ventilation, and response to care were monitored throughout the procedure. The Colonoscope was introduced through the anus and advanced to 10 cm into the ileum. The colonoscopy was performed without difficulty. The patient tolerated the procedure well. The quality of the bowel preparation was good. Findings: The perianal and digital rectal examinations were normal. Retroflexion in the right colon was performed. The entire examined colon appeared normal on direct and retroflexion views. The terminal ileum appeared normal. Impression: - The entire colon is normal on direct and retroflexion views. - The terminal ileum is normal. - No specimens collected. Recommendation: - Return to referring physician as previously scheduled. - Repeat colonoscopy in 10 years for screening purposes. - Resume Plavix (clopidogrel) at prior dose today. Procedure Code(s): --- Professional --- 65779, Colonoscopy, flexible; diagnostic, including collection of specimen(s) by brushing or washing, when performed (separate procedure) Diagnosis Code(s): --- Professional --- D50.9, Iron deficiency anemia, unspecified CPT copyright 2019 [employer]. All rights reserved. The codes documented in this report are preliminary and upon ceramics test engineer review may be revised to meet current compliance requirements. Ronny Santos MD Ronny Santos MD 08/23/2021 1:41:04 PM Electronically signed by Ronny Santos MD Number of Addenda: 0 Note Initiated On: 08/23/2021 1:07 PM Estimated Blood Loss: Estimated blood loss: none.
[2021-08-23 14:03] VITALS: BP 123/67
== END 2021-08-23 14:05 | disposition home or self-care (01) ==
LOC: M OPP 10:51
PROVIDERS: ATTEND Internal Medicine Gastroenterology
DX: D50.9 Iron deficiency anemia, unspecified (principal); Z79.899 Other long term (current) drug therapy; Z88.1 Allergy status to other antibiotic agents; Z88.8 Allergy status to other drugs, medicaments and biological substances

== ENCOUNTER → 2021-08-27 | Outpatient (REF) | payer OTHER ==
[~2021-08-27] MED LIST changes: -NS 1,000 ML IV ONE
[2021-08-27 17:51] LABS: FREE T4 1.01 NG/DL (0.76-1.46); THYROID STIMULATING HORMONE 1.03 uIU/ML (0.358-3.740)
== END ==
LOC: M SFHCADAM 15:53
PROVIDERS: ATTEND Physician Assistant Medical
DX: R00.2 Palpitations (principal); F41.9 Anxiety disorder, unspecified

== ENCOUNTER → 2021-08-29 | Outpatient (CLI) | payer OTHER ==
--- NOTE | 2021-09-01 07:54 | HOLTMON ---
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 There were occasional very occasional PVCs and rare PACs but no significant runs. No atrial fibrillation was seen. No significant ST events or pauses. Strips associated with diary entries of SOB and palpitations demonstrated normal sinus rhythm. Electronically Signed on 09-01-2021 7:53:41 EST by Mathieu Wallis
== END ==
LOC: M EKG 16:04
PROVIDERS: ATTEND Physician Assistant Medical
DX: R00.2 Palpitations (principal)

== ENCOUNTER → 2022-01-01 | Outpatient (CLI) | payer OTHER ==
[~2022-01-01] MED LIST changes: -MONT10TA10 PO; +MONT10TA97 PO; +TIZA10TA PO; -TIZA4TAB4 PO
== END ==
LOC: M WHC 14:57
PROVIDERS: ATTEND Obstetrics & Gynecology
DX: N83.201 Unspecified ovarian cyst, right side (principal)

== ENCOUNTER 2022-02-21 14:13 | Observation (INO) | payer OTHER ==
[~2022-02-21] VITALS: Ht 162.6 cm; Wt 89.8 kg
[2022-02-21] MEDS ORDERED: D 1010004 PO (14:36)
[2022-02-21] MEDS ORDERED: LABETALOL 100MG/20ML VIAL IV STA (14:41)
[2022-02-21] MEDS ORDERED: NITROGLYCERIN 0.4 MG SUBL TABLET SL PRN (14:45)
[2022-02-21 15:11] LABS: BASO % 0.5 % (0.0-1.0); EOS # 0.2 10^3/uL (0.0-0.5); EOS % 2.3 % (0.0-3.0); HEMATOCRIT 43.5 % (36.0-47.0); LYMPH % 25.2 % (24.0-44.0); MEAN CORPUSCULAR HEMOGLOBIN 30.9 pg (27.0-33.0); MEAN CORPUSCULAR HGB CONC 34.5 g/dl (32.0-36.5); MEAN CORPUSCULAR VOLUME 89.7 fl (80.0-96.0); MONO # 0.6 10^3/uL (0.0-0.8); NEUTROPHILS # 5.2 10^3/uL (1.5-8.5); NEUTROPHILS % 64.6 % (36.0-66.0); PLATELET COUNT, AUTOMATED 279 10^3/uL (150-450); RED BLOOD COUNT 4.85 10^6/uL (4.00-5.40); WHITE BLOOD COUNT 8.1 10^3/uL (4.0-10.0)
[2022-02-21 15:25] LABS: CK-MB VALUE MASS < 1.0 NG/ML (<3.6); CPK CREATINE PHOSPHOKINASE 99 U/L (26-192); MB/CK RELATIVE INDEX 1.01 (< OR =4)
[2022-02-21 15:34] LABS: ALBUMIN 3.8 GM/DL (3.2-5.2); ALT/SGPT 27 U/L (12-78); BILIRUBIN,DIRECT < 0.1 MG/DL (0.0-0.2); BILIRUBIN,TOTAL 0.4 MG/DL (0.2-1.0); BLOOD UREA NITROGEN 15 MG/DL (7-18); CARBON DIOXIDE LEVEL 28 MEQ/L (21-32); CHLORIDE LEVEL 107 MEQ/L (98-107); CREATININE FOR GFR 0.85 MG/DL (0.55-1.30); FREE T4 0.84 NG/DL (0.76-1.46); GLOMERULAR FILTRATION RATE > 60.0 (>60); GLUCOSE, FASTING 113 MG/DL (70-100); LIPASE 141 U/L (73-393); POTASSIUM SERUM 3.5 MEQ/L (3.5-5.1); SODIUM LEVEL 141 MEQ/L (136-145); TOTAL PROTEIN 7.5 GM/DL (6.4-8.2)
[2022-02-21] MEDS ORDERED: ISOVUE-370 76% 100ML VIAL As Ordered ONE (16:12)
[2022-02-21] MEDS ORDERED: ASPIRIN 81 MG CHEW TABLET PO ONE (16:45)
[2022-02-21 17:09] LABS: CK-MB VALUE MASS < 1.0 NG/ML (<3.6); CPK CREATINE PHOSPHOKINASE 83 U/L (26-192)
[2022-02-21] MEDS ORDERED: BUSP5TA PO (17:48)
[2022-02-21] MEDS ORDERED: ZOLO100T PO (17:48)
[2022-02-21] MEDS ORDERED: IFERCAP PO (17:48)
[2022-02-21] MEDS ORDERED: busPIRone 5 MG TAB PO PRN (18:25)
[2022-02-21] MEDS ORDERED: FEXO60TA99 PO (18:43)
[2022-02-21] MEDS ORDERED: HOME MED LIST COMPLETE! XX SCH (18:45)
[2022-02-21 18:55] LABS: RSV AMPLIFICATION NEGATIVE (NEGATIVE)
[2022-02-21] MEDS: LABETALOL 200 MG TAB PO SCH (20:27)
[2022-02-21] MEDS ORDERED: LORazepam 2 MG/ML VIAL IV STA (20:32)
[2022-02-21 22:38] VITALS: BP 114/73
[2022-02-21] MEDS ORDERED: ACETAMINOPHEN TAB 650MG DOSE (2X325MG) PO PRN (23:50)
[2022-02-22] MEDS ORDERED: MORPHINE 2 MG/ML 1ML VIAL IV ONE (01:00)
[2022-02-22 06:00] VITALS: BP 113/77
[2022-02-22 09:00] VITALS: BP 122/79
[2022-02-22] MEDS ORDERED: SERTRALINE HCL 50 MG TAB PO SCH (09:00)
[2022-02-22] MEDS: LABETALOL 200 MG TAB PO SCH (09:00)
[2022-02-22] MEDS ORDERED: CLOPIDOGREL 75 MG TAB PO SCH (09:00)
[2022-02-22] MEDS ORDERED: LABE100T5 PO (09:55)
== END 2022-02-22 10:52 | disposition home or self-care (01) ==
LOC: M ED 14:13 → M ED INP 18:07 → ENRESERV 21:01 → M MSPAV 22:38
PROVIDERS: ADMIT Family Medicine; ATTEND Family Medicine
DX: R07.89 Other chest pain (principal); I10 Essential (primary) hypertension; Z86.73 Personal history of transient ischemic attack (TIA), and cerebral infarction without residual deficits; I67.1 Cerebral aneurysm, nonruptured; F41.9 Anxiety disorder, unspecified; R00.1 Bradycardia, unspecified; Z79.01 Long term (current) use of anticoagulants; Z79.899 Other long term (current) drug therapy
CPT/HCPCS: 70450; 71046; 71275; 80048; 80076; 82550; 82553; 83690; 84439; 84443; 84484; 85025; 87631; 93005; 93041; 94760; 96374; 96375; 99285; J2060; J2270; Q9967

== ENCOUNTER → 2022-03-18 | Outpatient (CLI) | payer OTHER ==
[~2022-03-18] MED LIST changes: +BUSP5TA PO; +D 1010004 PO; +FEXO60TA99 PO; +LABE100T5 PO; +ZOLO100T PO
== END ==
LOC: M WUC 14:56
PROVIDERS: ATTEND Physician Assistant
DX: S92.422A Displaced fracture of distal phalanx of left great toe, initial encounter for closed fracture (principal); X58.XXXA Exposure to other specified factors, initial encounter; Y92.9 Unspecified place or not applicable

== ENCOUNTER → 2022-10-06 | Outpatient (CLI) | payer OTHER ==
[~2022-10-06] MED LIST changes: -LABE100T5 PO; +LABE100T71 PO
[2022-10-06 16:08] LABS: BASO # 0.1 10^3/uL (0.0-0.2); BASO % 0.6 % (0.0-1.0); EOS # 0.3 10^3/uL (0.0-0.5); EOS % 3.3 % (0.0-3.0); HEMATOCRIT 41.5 % (36.0-47.0); HEMOGLOBIN 14.5 g/dl (12.0-15.5); LYMPH # 2.4 10^3/uL (1.5-5.0); LYMPH % 27.5 % (24.0-44.0); MEAN CORPUSCULAR HEMOGLOBIN 31.2 pg (27.0-33.0); MEAN CORPUSCULAR HGB CONC 34.9 g/dl (32.0-36.5); MEAN CORPUSCULAR VOLUME 89.2 fl (80.0-96.0); MONO # 0.6 10^3/uL (0.0-0.8); MONO % 6.8 % (2.0-8.0); NEUTROPHILS # 5.3 10^3/uL (1.5-8.5); NEUTROPHILS % 61.6 % (36.0-66.0); PLATELET COUNT, AUTOMATED 225 10^3/uL (150-450); RED BLOOD COUNT 4.65 10^6/uL (4.00-5.40); WHITE BLOOD COUNT 8.5 10^3/uL (4.0-10.0)
[2022-10-06 16:40] LABS: ALBUMIN 4.1 G/DL (3.2-5.2); ALKALINE PHOSPHATASE 70 U/L (46-116); ALT/SGPT 12 U/L (7.0-40); AST/SGOT 15 U/L (<34); BILIRUBIN,TOTAL 0.7 MG/DL (0.3-1.2); BLOOD UREA NITROGEN 10 MG/DL (9-23); CALCIUM LEVEL 9.3 MG/DL (8.5-10.1); CARBON DIOXIDE LEVEL 25 MMOL/L (20-31); CHLORIDE LEVEL 104 MMOL/L (98-107); CREATININE FOR GFR 0.75 MG/DL (0.55-1.30); FOLATE 14.8 NG/ML (>5.4); GLOMERULAR FILTRATION RATE > 60.0 (>60); GLUCOSE, FASTING 90 MG/DL (60-100); POTASSIUM SERUM 3.6 MMOL/L (3.5-5.1); SODIUM LEVEL 137 MMOL/L (136-145); THYROID STIMULATING HORMONE 1.652 uIU/ML (0.55-4.78); TOTAL 25(OH) VITAMIN D 51.1 NG/ML (20.0-100.0); TOTAL PROTEIN 7.2 G/DL (5.7-8.2); VITAMIN B12 LEVEL 762 PG/ML (211-911)
== END ==
LOC: M LABDRWAD 13:25
DX: R53.83 Other fatigue (principal)

== ENCOUNTER → 2022-11-19 | Outpatient (REF) | payer OTHER ==
[2022-11-19 16:27] LABS: ALBUMIN 4.3 G/DL (3.2-5.2); ALKALINE PHOSPHATASE 68 U/L (46-116); ALT/SGPT 15 U/L (7.0-40); AST/SGOT 15 U/L (<34); BILIRUBIN,TOTAL 0.7 MG/DL (0.3-1.2); BLOOD UREA NITROGEN 14 MG/DL (9-23); CALCIUM LEVEL 9.6 MG/DL (8.5-10.1); CARBON DIOXIDE LEVEL 30 MMOL/L (20-31); CHLORIDE LEVEL 103 MMOL/L (98-107); CREATININE FOR GFR 0.77 MG/DL (0.55-1.30); GLOMERULAR FILTRATION RATE > 60.0 (>60); GLUCOSE, FASTING 79 MG/DL (60-100); SODIUM LEVEL 139 MMOL/L (136-145); TOTAL PROTEIN 7.3 G/DL (5.7-8.2)
[2022-11-19 16:39] LABS: APPEARANCE, URINE HAZY (CLEAR); BACTERIA, URINE AUTO NEGATIVE (NEGATIVE); BASO # 0.1 10^3/uL (0.0-0.2); BASO % 0.6 % (0.0-1.0); BILIRUBIN, URINE AUTO NEGATIVE (NEGATIVE); BLOOD, URINE BLOOD NEGATIVE (NEGATIVE); COLOR, URINE STRAW (YELLOW); EOS # 0.4 10^3/uL (0.0-0.5); EOS % 4.5 % (0.0-3.0); GLUCOSE, URINE (UA) AUTO NEGATIVE (NEGATIVE); HEMATOCRIT 43.3 % (36.0-47.0); HEMOGLOBIN 14.8 g/dl (12.0-15.5); KETONE, URINE AUTO NEGATIVE (NEGATIVE); LEUKOCYTE ESTERASE, URINE AUTO NEGATIVE (NEGATIVE); LYMPH # 2.7 10^3/uL (1.5-5.0); MEAN CORPUSCULAR HEMOGLOBIN 31.2 pg (27.0-33.0); MEAN CORPUSCULAR HGB CONC 34.2 g/dl (32.0-36.5); MEAN CORPUSCULAR VOLUME 91.4 fl (80.0-96.0); MONO # 0.5 10^3/uL (0.0-0.8); MONO % 6.5 % (2.0-8.0); NEUTROPHILS # 4.7 10^3/uL (1.5-8.5); NEUTROPHILS % 56.2 % (36.0-66.0); NITRITE, URINE AUTO NEGATIVE (NEGATIVE); PLATELET COUNT, AUTOMATED 290 10^3/uL (150-450); PROTEIN, URINE AUTO NEGATIVE (NEGATIVE); RBC, URINE AUTO 0 /HPF (0-3); RED BLOOD COUNT 4.74 10^6/uL (4.00-5.40); SPECIFIC GRAVITY URINE AUTO 1.003 (1.002-1.035); SQUAMOUS EPITHELIAL CELL UR AU 13 /HPF (0-6); UROBILINOGEN, URINE AUTO 0.2 mg/dL (0.0-2.0); WBC, URINE AUTO 0 /HPF (0-3); WHITE BLOOD COUNT 8.3 10^3/uL (4.0-10.0)
[2022-11-19 16:40] LABS: HCG, SERUM QUALITATIVE NEGATIVE (NEGATIVE)
[2022-11-19 16:51] LABS: INR 1.05; PROTHROMBIN TIME 13.9 SECONDS (12.5-14.5)
[2022-11-19 16:52] LABS: PARTIAL THROMBOPLASTIN TIME 33.4 SECONDS (24.8-34.2)
== END ==
LOC: M LABDRWAD 15:52
PROVIDERS: ATTEND Neurological Surgery
DX: Z01.812 Encounter for preprocedural laboratory examination (principal); I67.0 Dissection of cerebral arteries, nonruptured; I65.21 Occlusion and stenosis of right carotid artery

== ENCOUNTER → 2022-12-12 | Outpatient (CLI) | payer OTHER ==
[2022-12-12 14:11] LABS: BASO % 0.6 % (0.0-1.0); EOS # 0.3 10^3/uL (0.0-0.5); EOS % 4.5 % (0.0-3.0); HEMATOCRIT 41.4 % (36.0-47.0); LYMPH # 2.4 10^3/uL (1.5-5.0); LYMPH % 37.1 % (24.0-44.0); MEAN CORPUSCULAR HEMOGLOBIN 30.6 pg (27.0-33.0); MEAN CORPUSCULAR HGB CONC 33.8 g/dl (32.0-36.5); MEAN CORPUSCULAR VOLUME 90.6 fl (80.0-96.0); MONO # 0.5 10^3/uL (0.0-0.8); MONO % 7.9 % (2.0-8.0); NEUTROPHILS # 3.2 10^3/uL (1.5-8.5); NEUTROPHILS % 49.7 % (36.0-66.0); PLATELET COUNT, AUTOMATED 305 10^3/uL (150-450); RED BLOOD COUNT 4.57 10^6/uL (4.00-5.40); WHITE BLOOD COUNT 6.5 10^3/uL (4.0-10.0)
[2022-12-12 14:23] LABS: IMMUNOGLOBULIN A 261.5 MG/DL (40-350); IMMUNOGLOBULIN G 1021 MG/DL (650-1600); IMMUNOGLOBULIN M 72.3 MG/DL (50-300)
[2022-12-12 14:25] LABS: IMMUNOGLOBULIN E 43.4 IU/ML (0-378)
[2022-12-12 14:38] LABS: ERYTHROCYTE SEDIMENTATION RATE 10 mm/hr (0-20)
[2022-12-18 03:09] LABS: ANTI TETANUS ANTIBODY 0.61 IU/mL (<0.10); STREP PNEUMO TYPE 1 0.2 ug/mL (>1.3); STREP PNEUMO TYPE 12F <0.1 ug/mL (>1.3); STREP PNEUMO TYPE 14 4.8 ug/mL (>1.3); STREP PNEUMO TYPE 18C 0.1 ug/mL (>1.3); STREP PNEUMO TYPE 19A 3.1 ug/mL (>1.3); STREP PNEUMO TYPE 19F 2.5 ug/mL (>1.3); STREP PNEUMO TYPE 23F <0.1 ug/mL (>1.3); STREP PNEUMO TYPE 3 0.1 ug/mL (>1.3); STREP PNEUMO TYPE 4 <0.1 ug/mL (>1.3); STREP PNEUMO TYPE 6B 0.5 ug/mL (>1.3); STREP PNEUMO TYPE 7F <0.1 ug/mL (>1.3); STREP PNEUMO TYPE 8 <0.1 ug/mL (>1.3); STREP PNEUMO TYPE 9N <0.1 ug/mL (>1.3); STREP PNEUMO TYPE 9V <0.1 ug/mL (>1.3)
== END ==
LOC: M LABDRWAD 09:37
PROVIDERS: ATTEND Allergy & Immunology Allergy
DX: D84.9 Immunodeficiency, unspecified (principal)

== ENCOUNTER → 2023-02-09 | Outpatient (REF) | payer OTHER | LOC: M LABDRWAD 15:58 | PROVIDERS: ATTEND Allergy & Immunology Allergy | DX: D84.9 Immunodeficiency, unspecified (principal) ==

== ENCOUNTER → 2023-07-16 | Outpatient (CLI) | payer OTHER ==
[~2023-07-16] MED LIST changes: +AMLO1TAB25 PO; +TIRZ10PE SQ
== END ==
LOC: M ADAMS 14:46
PROVIDERS: ATTEND Registered Nurse
DX: R05.1 Acute cough (principal)

== ENCOUNTER → 2023-07-28 | Outpatient (REF) | payer OTHER ==
[~2023-07-28] MED LIST changes: +ALBU8.5H INH; +ALLE1TAB23 PO; +MODA200T15 PO; +RIME75TA PO; +TIRZ7.5P SC
[2023-07-28 14:44] LABS: BASO % 0.4 % (0.0-1.0); EOS # 0.5 10^3/uL (0.0-0.5); HEMATOCRIT 41.2 % (36.0-47.0); HEMOGLOBIN 14.2 g/dl (12.0-15.5); LYMPH # 2.3 10^3/uL (1.5-5.0); LYMPH % 22.2 % (24.0-44.0); MEAN CORPUSCULAR HEMOGLOBIN 31.4 pg (27.0-33.0); MEAN CORPUSCULAR HGB CONC 34.5 g/dl (32.0-36.5); MEAN CORPUSCULAR VOLUME 91.2 fl (80.0-96.0); MONO # 0.7 10^3/uL (0.0-0.8); MONO % 6.9 % (2.0-8.0); NEUTROPHILS # 6.7 10^3/uL (1.5-8.5); NEUTROPHILS % 65.3 % (36.0-66.0); PLATELET COUNT, AUTOMATED 243 10^3/uL (150-450); RED BLOOD COUNT 4.52 10^6/uL (4.00-5.40); WHITE BLOOD COUNT 10.2 10^3/uL (4.0-10.0)
[2023-07-28 14:45] LABS: ALBUMIN 3.8 G/DL (3.2-5.2); ALKALINE PHOSPHATASE 65 U/L (46-116); ALT/SGPT 13 U/L (7.0-40); AST/SGOT 11 U/L (<34); BILIRUBIN,TOTAL 0.6 MG/DL (0.3-1.2); BLOOD UREA NITROGEN 8 MG/DL (9-23); CARBON DIOXIDE LEVEL 26 MMOL/L (20-31); CHLORIDE LEVEL 105 MMOL/L (98-107); GLOMERULAR FILTRATION RATE > 60.0 (>60); GLUCOSE, FASTING 83 MG/DL (60-100); POTASSIUM SERUM 3.5 MMOL/L (3.5-5.1); SODIUM LEVEL 139 MMOL/L (136-145); TOTAL PROTEIN 6.7 G/DL (5.7-8.2)
== END ==
LOC: M LABDRWAD 14:15
PROVIDERS: ATTEND Registered Nurse
DX: Z01.818 Encounter for other preprocedural examination (principal)

== ENCOUNTER 2023-08-10 07:26 | Day surgery (SDC) | payer OTHER ==
[~2023-08-10] VITALS: Ht 162.6 cm; Wt 67.0 kg
[~2023-08-10 07:26] MED LIST changes: +ACETAMINOPHEN 1000MG 100ML IV BAG As Ordered ONE; +LIDOCAINE 2% 100MG/5ML SDV (FOR ANES.) As Ordered ONE; +MIDAZOLAM INJ 2MG/2ML VIAL As Ordered ONE; +ONDANSETRON 4MG 2ML VIAL As Ordered ONE; +ROCURONIUM BROMIDE 50MG/5ML VIAL As Ordered ONE; +fentaNYL 250 MCG/5 ML INJECTION As Ordered ONE; +propofoL 200 MG/20 ML VIAL As Ordered ONE
[2023-08-10] MEDS ORDERED: LR 1,000 ML IV SCH (07:40)
[2023-08-10] MEDS ORDERED: SCOPOLAMINE 1MG TRANSDERMAL PATCH TOP ONE (08:00)
[2023-08-10] MEDS ORDERED: LIDOCAINE W/EPINEPHRINE 1% 20ML VIAL As Ordered ONE ×3 (08:03→08:08)
[2023-08-10] MEDS ORDERED: OXYMETAZOLINE 0.05% NASAL SPRAY (AFRIN) As Ordered ONE (08:04)
[2023-08-10] MEDS ORDERED: COCAINE 4% 4ML NASAL SOLUTION BTL As Ordered ONE (08:05)
[2023-08-10] MEDS ORDERED: ePHEDrine SULFATE 25 MG/5 ML(5MG/ML) SYRINGE As Ordered ONE (08:50)
[2023-08-10] MEDS ORDERED: SUGAMMADEX SODIUM 500 MG/5 ML VIAL (BRIDION) As Ordered ONE (08:56)
[2023-08-10] MEDS ORDERED: PHENYLephrine 500MCG 5ML (100MCG/ML) SYRINGE As Ordered ONE (08:57)
[2023-08-10] MEDS ORDERED: LABETALOL 100MG/20ML VIAL As Ordered ONE (09:40)
[2023-08-10] MEDS ORDERED: propofoL 200 MG/20 ML VIAL As Ordered ONE (09:43)
[2023-08-10] MEDS ORDERED: fentaNYL 100 MCG/2 ML INJECTION As Ordered ONE (10:36)
[2023-08-10] MEDS ORDERED: MORPHINE 2 MG/ML 1ML VIAL IV PRN (13:10)
[2023-08-10] MEDS ORDERED: ONDANSETRON 4MG 2ML VIAL IV PRN (13:10)
[2023-08-10] MEDS: fentaNYL 100 MCG/2 ML INJECTION IV PRN ×2 (13:22→13:27)
[2023-08-10] MEDS: oxyCODONE 5MG TAB PO PRN ×2 (13:33→14:07)
[2023-08-10 14:56] VITALS: BP 141/86; TEMP 98.9; O2SAT 99
== END 2023-08-10 16:03 | disposition home or self-care (01) ==
LOC: M SDC 07:26
PROVIDERS: ATTEND Otolaryngology
DX: J32.4 Chronic pansinusitis (principal); J34.3 Hypertrophy of nasal turbinates; J33.8 Other polyp of sinus; I10 Essential (primary) hypertension; I69.398 Other sequelae of cerebral infarction; H54.40 Blindness, one eye, unspecified eye; Z86.718 Personal history of other venous thrombosis and embolism; Z79.899 Other long term (current) drug therapy; Z79.02 Long term (current) use of antithrombotics/antiplatelets; Z90.710 Acquired absence of both cervix and uterus; G47.30 Sleep apnea, unspecified; Z90.49 Acquired absence of other specified parts of digestive tract; Z88.8 Allergy status to other drugs, medicaments and biological substances; Z88.0 Allergy status to penicillin; Z88.1 Allergy status to other antibiotic agents
CPT/HCPCS: 31259; 31267; 31276; 61782; 88305; A6024; C9143; J0131; J1100; J1920; J2250; J2371; J2405; J3010

== ENCOUNTER → 2023-11-27 | Outpatient (REF) | payer OTHER ==
[~2023-11-27] MED LIST changes: -ACETAMINOPHEN 1000MG 100ML IV BAG As Ordered ONE; -ALLE1TAB23 PO; +FEXO-157 PO; +LABE100T40 PO; -LABE100T71 PO; -LIDOCAINE 2% 100MG/5ML SDV (FOR ANES.) As Ordered ONE; -MIDAZOLAM INJ 2MG/2ML VIAL As Ordered ONE; -ONDANSETRON 4MG 2ML VIAL As Ordered ONE; -ROCURONIUM BROMIDE 50MG/5ML VIAL As Ordered ONE; -fentaNYL 250 MCG/5 ML INJECTION As Ordered ONE; -propofoL 200 MG/20 ML VIAL As Ordered ONE
[2023-11-27 14:17] LABS: HEMATOCRIT 41.3 % (36.0-47.0); HEMOGLOBIN 14.2 g/dl (12.0-15.5); MEAN CORPUSCULAR HEMOGLOBIN 30.6 pg (27.0-33.0); MEAN CORPUSCULAR HGB CONC 34.4 g/dl (32.0-36.5); PLATELET COUNT, AUTOMATED 280 10^3/uL (150-450); RED BLOOD COUNT 4.64 10^6/uL (4.00-5.40); WHITE BLOOD COUNT 6.4 10^3/uL (4.0-10.0)
[2023-11-27 14:43] LABS: ALBUMIN 3.9 G/DL (3.2-5.2); ALKALINE PHOSPHATASE 70 U/L (46-116); ALT/SGPT 15 U/L (7.0-40); AST/SGOT 8 U/L (<34); BILIRUBIN,TOTAL 0.4 MG/DL (0.3-1.2); BLOOD UREA NITROGEN 12 MG/DL (9-23); CALCIUM LEVEL 8.8 MG/DL (8.5-10.1); CARBON DIOXIDE LEVEL 28 MMOL/L (20-31); CHLORIDE LEVEL 107 MMOL/L (98-107); CREATININE FOR GFR 0.71 MG/DL (0.55-1.30); GLOMERULAR FILTRATION RATE > 60.0 (>60); GLUCOSE, FASTING 82 MG/DL (60-100); POTASSIUM SERUM 4.1 MMOL/L (3.5-5.1); SODIUM LEVEL 141 MMOL/L (136-145); TOTAL PROTEIN 6.7 G/DL (5.7-8.2)
[2023-11-27 14:46] LABS: LUTEINIZING HORMONE 4.1 mIU/ML
[2023-11-27 14:47] LABS: ESTRADIOL 127.3 PG/ML; THYROID STIMULATING HORMONE 0.911 uIU/ML (0.55-4.78)
[2023-11-27 14:48] LABS: FOLLICLE STIMULATING HORMONE 8.6 mIU/ML
[2023-11-28 19:11] LABS: TESTOSTERONE FREE (DIRECT) 0.7 pg/mL (0.0-4.2); TESTOSTERONE TOTAL FOR T&D < 3.0 ng/dL (8-60)
== END ==
LOC: M PLALAB 09:37
PROVIDERS: ATTEND Obstetrics & Gynecology
DX: R53.82 Chronic fatigue, unspecified (principal)

== ENCOUNTER → 2024-01-25 | Outpatient (CLI) | payer OTHER ==
[2024-01-25 18:14] LABS: BASO # 0.1 10^3/uL (0.0-0.2); BASO % 0.9 % (0.0-1.0); EOS # 0.3 10^3/uL (0.0-0.5); EOS % 4.6 % (0.0-3.0); HEMATOCRIT 37.9 % (36.0-47.0); HEMOGLOBIN 13.3 g/dl (12.0-15.5); LYMPH # 1.8 10^3/uL (1.5-5.0); LYMPH % 32.5 % (24.0-44.0); MEAN CORPUSCULAR HEMOGLOBIN 31.7 pg (27.0-33.0); MEAN CORPUSCULAR HGB CONC 35.1 g/dl (32.0-36.5); MEAN CORPUSCULAR VOLUME 90.5 fl (80.0-96.0); MONO # 0.4 10^3/uL (0.0-0.8); MONO % 7.3 % (2.0-8.0); NEUTROPHILS # 3.1 10^3/uL (1.5-8.5); NEUTROPHILS % 54.5 % (36.0-66.0); PLATELET COUNT, AUTOMATED 241 10^3/uL (150-450); RED BLOOD COUNT 4.19 10^6/uL (4.00-5.40); WHITE BLOOD COUNT 5.6 10^3/uL (4.0-10.0)
[2024-01-25 18:25] LABS: ERYTHROCYTE SEDIMENTATION RATE 5 mm/hr (0-20)
[2024-01-25 18:32] LABS: URIC ACID 4.1 MG/DL (3.1-7.8)
[2024-01-25 18:33] LABS: C REACTIVE PROTEIN QUANTITATIV < 0.40 MG/DL (<1.0)
[2024-01-25 18:35] LABS: ALBUMIN 3.9 G/DL (3.2-5.2); ALKALINE PHOSPHATASE 63 U/L (46-116); ALT/SGPT 16 U/L (7.0-40); AST/SGOT 10 U/L (<34); BILIRUBIN,TOTAL 0.6 MG/DL (0.3-1.2); BLOOD UREA NITROGEN 8 MG/DL (9-23); CALCIUM LEVEL 8.9 MG/DL (8.5-10.1); CARBON DIOXIDE LEVEL 28 MMOL/L (20-31); CHLORIDE LEVEL 104 MMOL/L (98-107); CREATININE FOR GFR 0.83 MG/DL (0.55-1.30); GLOMERULAR FILTRATION RATE > 60.0 (>60); GLUCOSE, FASTING 80 MG/DL (60-100); POTASSIUM SERUM 3.2 MMOL/L (3.5-5.1); RHEUMATOID FACTOR QUANT 5.2 IU/ML (<14); SODIUM LEVEL 139 MMOL/L (136-145); TOTAL PROTEIN 6.3 G/DL (5.7-8.2)
[2024-01-25 18:36] LABS: FREE T4 0.99 NG/DL (0.89-1.76); THYROID STIMULATING HORMONE 1.525 uIU/ML (0.55-4.78)
[2024-01-27 20:08] LABS: ANTINUCLEAR ANTIBODIES DIRECT Negative (Negative); CYCLIC CITRULLINATED PEPTIDE 9 units (0-19)
== END ==
LOC: M ADAMS 13:07
PROVIDERS: ATTEND Registered Nurse
DX: R21 Rash and other nonspecific skin eruption (principal)

== ENCOUNTER → 2024-05-24 | Outpatient (REF) | payer OTHER ==
[~2024-05-24] MED LIST changes: +BUPR-597 PO; +CETI-24 PO; -FEXO-157 PO; +FEXO-63 PO; +LEXA1TAB2 PO
[2024-05-24 18:41] LABS: BASO # 0.1 10^3/uL (0.0-0.2); BASO % 0.8 % (0.0-1.0); EOS # 0.4 10^3/uL (0.0-0.5); EOS % 5.4 % (0.0-3.0); HEMOGLOBIN 14.6 g/dl (12.0-15.5); LYMPH # 2.7 10^3/uL (1.5-5.0); LYMPH % 33.7 % (24.0-44.0); MEAN CORPUSCULAR HEMOGLOBIN 31.3 pg (27.0-33.0); MEAN CORPUSCULAR HGB CONC 35.6 g/dl (32.0-36.5); MONO # 0.7 10^3/uL (0.0-0.8); MONO % 8.2 % (2.0-8.0); NEUTROPHILS # 4.1 10^3/uL (1.5-8.5); NEUTROPHILS % 51.6 % (36.0-66.0); PLATELET COUNT, AUTOMATED 263 10^3/uL (150-450); RED BLOOD COUNT 4.66 10^6/uL (4.00-5.40); WHITE BLOOD COUNT 7.9 10^3/uL (4.0-10.0)
[2024-05-24 19:11] LABS: ALBUMIN 4.3 G/DL (3.2-5.2); ALKALINE PHOSPHATASE 56 U/L (46-116); ALT/SGPT 13 U/L (7.0-40); AST/SGOT 8 U/L (<34); BILIRUBIN,TOTAL 0.5 MG/DL (0.3-1.2); BLOOD UREA NITROGEN 11 MG/DL (9-23); CALCIUM LEVEL 9.3 MG/DL (8.5-10.1); CARBON DIOXIDE LEVEL 28 MMOL/L (20-31); CHLORIDE LEVEL 106 MMOL/L (98-107); CREATININE FOR GFR 0.78 MG/DL (0.55-1.30); GLOMERULAR FILTRATION RATE > 60.0 (>60); GLUCOSE, FASTING 79 MG/DL (60-100); POTASSIUM SERUM 3.8 MMOL/L (3.5-5.1); SODIUM LEVEL 138 MMOL/L (136-145); TOTAL PROTEIN 7.1 G/DL (5.7-8.2)
== END ==
LOC: M LABDRWAD 17:32
PROVIDERS: ATTEND Registered Nurse
DX: I10 Essential (primary) hypertension (principal)

== ENCOUNTER 2024-06-01 06:07 | Day surgery (SDC) | payer OTHER ==
[~2024-06-01] VITALS: Ht 162.6 cm; Wt 66.1 kg
[2024-06-01] MEDS ORDERED: propofoL 200 MG/20 ML VIAL As Ordered ONE (06:39)
[2024-06-01] MEDS ORDERED: ACETAMINOPHEN 1000MG 100ML IV BAG As Ordered ONE (06:39)
[2024-06-01] MEDS ORDERED: LIDOCAINE 2% 100MG/5ML SDV (FOR ANES.) As Ordered ONE (06:39)
[2024-06-01] MEDS ORDERED: KETAMINE HCL 200MG/20ML VIAL As Ordered ONE (06:39)
[2024-06-01] MEDS ORDERED: MIDAZOLAM INJ 2MG/2ML VIAL As Ordered ONE (06:39)
[2024-06-01] MEDS: LR 1,000 ML IV SCH (07:05)
[2024-06-01] MEDS: CLINDAMYCIN 900 MG in IV 1 EA IV ONE (07:45)
[2024-06-01] MEDS: LIDOCAINE 1% SDV 30ML VIAL As Ordered ONE (07:46)
[2024-06-01] MEDS ORDERED: ONDANSETRON 4MG 2ML VIAL As Ordered ONE (07:50)
[2024-06-01] MEDS ORDERED: fentaNYL 100 MCG/2 ML INJECTION IV PRN (10:30)
[2024-06-01] MEDS ORDERED: oxyCODONE 5MG TAB PO PRN (10:30)
[2024-06-01] MEDS ORDERED: ONDANSETRON 4MG 2ML VIAL IV PRN (10:30)
[2024-06-01 10:44] VITALS: BP 117/73; TEMP 98.3; O2SAT 98
== END 2024-06-01 10:57 | disposition home or self-care (01) ==
LOC: M SDC 06:07
PROVIDERS: ATTEND Podiatrist Foot & Ankle Surgery
DX: M77.51 Other enthesopathy of right foot and ankle (principal); T84.84XA Pain due to internal orthopedic prosthetic devices, implants and grafts, initial encounter; I10 Essential (primary) hypertension; I73.9 Peripheral vascular disease, unspecified; D64.9 Anemia, unspecified; Z79.51 Long term (current) use of inhaled steroids; Z79.899 Other long term (current) drug therapy; F41.9 Anxiety disorder, unspecified; G43.909 Migraine, unspecified, not intractable, without status migrainosus; Z86.73 Personal history of transient ischemic attack (TIA), and cerebral infarction without residual deficits; G47.33 Obstructive sleep apnea (adult) (pediatric); Z88.0 Allergy status to penicillin; Z88.8 Allergy status to other drugs, medicaments and biological substances
CPT/HCPCS: 20680; 76000; J0131; J0665; J0737; J1100; J2250; J2405

== ENCOUNTER → 2024-10-18 | Outpatient (CLI) | payer OTHER | LOC: M RAD 16:25 | PROVIDERS: ATTEND Otolaryngology | DX: J32.4 Chronic pansinusitis (principal) ==

== ENCOUNTER 2024-12-19 10:29 | Day surgery (SDC) | payer OTHER ==
[~2024-12-19] VITALS: Ht 162.6 cm; Wt 65.8 kg
[~2024-12-19 10:29] MED LIST changes: +BUDE0.5S6; +TIRZ5PEN
[2024-12-19] MEDS ORDERED: LR 1,000 ML IV SCH ×2 (10:55→14:05)
[2024-12-19 10:58] LABS: HEMATOCRIT 39.2 % (36.0-47.0); HEMOGLOBIN 13.7 g/dl (12.0-15.5); MEAN CORPUSCULAR HEMOGLOBIN 31.6 pg (27.0-33.0); MEAN CORPUSCULAR HGB CONC 34.9 g/dl (32.0-36.5); MEAN CORPUSCULAR VOLUME 90.3 fl (80.0-96.0); PLATELET COUNT, AUTOMATED 223 10^3/uL (150-450); RED BLOOD COUNT 4.34 10^6/uL (4.00-5.40); WHITE BLOOD COUNT 5.5 10^3/uL (4.0-10.0)
[2024-12-19] MEDS ORDERED: LIDOCAINE 2% 100MG/5ML SDV (FOR ANES.) As Ordered ONE (11:05)
[2024-12-19] MEDS ORDERED: propofoL 200 MG/20 ML VIAL As Ordered ONE (11:05)
[2024-12-19] MEDS ORDERED: ROCURONIUM BROMIDE 50MG/5ML VIAL As Ordered ONE (11:05)
[2024-12-19] MEDS ORDERED: MIDAZOLAM INJ 2MG/2ML VIAL As Ordered ONE (11:06)
[2024-12-19] MEDS ORDERED: fentaNYL 250 MCG/5 ML INJECTION As Ordered ONE (11:06)
[2024-12-19] MEDS ORDERED: ONDANSETRON 4MG 2ML VIAL IV PRN (12:40)
[2024-12-19] MEDS ORDERED: fentaNYL 100 MCG/2 ML INJECTION IV PRN (12:40)
[2024-12-19] MEDS ORDERED: oxyCODONE 5MG TAB PO PRN (12:40)
[2024-12-19] MEDS ORDERED: HYDROMORPHONE HCL 0.5 MG/ 0.5 ML SYRINGE IV PRN (12:40)
[2024-12-19] MEDS: OXYMETAZOLINE 0.05% NASAL SPRAY As Ordered ONE (12:41)
[2024-12-19] MEDS: LIDOCAINE W/EPINEPHRINE 1% 20ML VIAL As Ordered ONE (12:41)
[2024-12-19] MEDS: COCAINE 4% 4ML NASAL SOLUTION BTL As Ordered ONE (12:48)
[2024-12-19] MEDS ORDERED: KETOROLAC 30 MG/ML 1ML VIAL As Ordered ONE (12:51)
[2024-12-19] MEDS ORDERED: ACETAMINOPHEN 1000MG/100ML IV BAG As Ordered ONE (12:51)
[2024-12-19] MEDS ORDERED: ONDANSETRON 4MG 2ML VIAL As Ordered ONE (12:51)
[2024-12-19] MEDS ORDERED: SUGAMMADEX SODIUM 500 MG/5 ML VIAL (BRIDION) As Ordered ONE (12:54)
[2024-12-19] MEDS ORDERED: METOCLOPRAMIDE INJ 10MG/2ML VIAL As Ordered ONE (13:49)
[2024-12-19 15:20] VITALS: BP 127/77; TEMP 98.9; O2SAT 95
== END 2024-12-19 15:22 | disposition home or self-care (01) ==
LOC: M SDC 10:29
PROVIDERS: ATTEND Otolaryngology
DX: J32.9 Chronic sinusitis, unspecified (principal); I10 Essential (primary) hypertension; Z98.62 Peripheral vascular angioplasty status; I73.9 Peripheral vascular disease, unspecified; D64.9 Anemia, unspecified; Z79.01 Long term (current) use of anticoagulants; Z86.718 Personal history of other venous thrombosis and embolism; F41.9 Anxiety disorder, unspecified; G43.909 Migraine, unspecified, not intractable, without status migrainosus; Z86.73 Personal history of transient ischemic attack (TIA), and cerebral infarction without residual deficits; G47.30 Sleep apnea, unspecified; Z79.899 Other long term (current) drug therapy; Z88.0 Allergy status to penicillin; Z88.8 Allergy status to other drugs, medicaments and biological substances
CPT/HCPCS: 31254; 31267; 31288; 36415; 61782; 85027; A6024; C9143; J0131; J1100; J1885; J2250; J2405; J2765; J3010

== ENCOUNTER → 2025-04-27 | Outpatient (CLI) | payer OTHER ==
[~2025-04-27] MED LIST changes: -BUPR-597 PO; +BUPR-766 PO
== END ==
LOC: M WUC 12:53
PROVIDERS: ATTEND Nurse Practitioner Family
DX: M54.50 Low back pain, unspecified (principal)

== ENCOUNTER → 2025-05-15 | Outpatient (REF) | payer OTHER ==
[2025-05-15 17:52] LABS: BASO # 0.0 10^3/uL (0.0-0.2); BASO % 0.7 % (0.0-1.0); EOS # 0.3 10^3/uL (0.0-0.5); EOS % 4.6 % (0.0-3.0); LYMPH # 1.7 10^3/uL (1.5-5.0); LYMPH % 30.8 % (24.0-44.0); MONO # 0.5 10^3/uL (0.0-0.8); MONO % 8.6 % (2.0-8.0); NEUTROPHILS # 3.0 10^3/uL (1.5-8.5); NEUTROPHILS % 55.1 % (36.0-66.0); PLATELET COUNT, AUTOMATED 281 10^3/uL (150-450)
[2025-05-15 18:28] LABS: ALT/SGPT 18 U/L (7.0-40); AST/SGOT 16 U/L (<34); CALCIUM LEVEL 9.0 MG/DL (8.5-10.1); CARBON DIOXIDE LEVEL 27 MMOL/L (20-31); CHLORIDE LEVEL 106 MMOL/L (98-107); CREATININE FOR GFR 0.81 MG/DL (0.55-1.30); GLOMERULAR FILTRATION RATE > 90.0 (>60); POTASSIUM SERUM 3.8 MMOL/L (3.5-5.1); SODIUM LEVEL 143 MMOL/L (136-145)
[2025-05-15 19:19] LABS: RHEUMATOID FACTOR QUANT 4.3 IU/ML (<14)
== END ==
LOC: M LABDRWAD 16:55
PROVIDERS: ATTEND Registered Nurse
DX: M54.50 Low back pain, unspecified (principal)

== ENCOUNTER → 2025-06-05 | Outpatient (CLI) | payer OTHER | LOC: M PLAIMG 12:49 | PROVIDERS: ATTEND Registered Nurse | DX: M54.50 Low back pain, unspecified (principal) ==